=== PATIENT | male | born 1950 | race Caucasian/White ===

== ENCOUNTER → 2019-02-15 | Outpatient (CLI) | payer MEDICARE, BC ==
[2017-01-31 10:27] VITALS: BP 152/82
[~2019-02-15] MED LIST: ASPI-612 PO; ATORVASTATIN CA80 MG PO; CHOL10003 PO; FLUO10TA PO; FLUT15.88 NS; GABA600T7 PO; GLIP5TAB10 PO; INSU100I27 SQ; KETO15CR2 TP; LISI-338 PO; LORA10TA3 PO; METF100010 PO; MIDO2.5T PO; MIRT15TA3 PO; MV-M1TAB36 PO; PIOG45TA40 PO; POLY15DR20 OP; SAXA5TAB PO
--- NOTE | 2019-02-15 16:22 | RAD ---
Bilateral lower extremity arterial duplex ultrasound 02/15/2019 INDICATION: Intermittent leg pain. Significant risk factors for atherosclerotic vascular disease including diabetes, long-term smoker, neuropathy. TECHNIQUE: Ultrasound evaluation of the major arteries of the bilateral lower extremities was performed including color Doppler imaging spectral analysis. Diffuse atherosclerotic vascular disease is identified. No high-grade stenosis involving the major arteries of the bilateral lower extremities is identified on color Doppler imaging. Waveform morphologies and velocities are within normal limits throughout the major arteries of the bilateral lower extremities. IMPRESSION: 1.No ultrasound evidence of hemodynamic significant stenosis involving the major arteries of the bilateral lower extremities. 2. Diffuse atherosclerotic vascular disease is noted. Electronically signed by: Tera Mcdonald MD (02/15/2019 4:19 PM) [facility]
== END | disposition home or self-care (01) ==
LOC: US 08:43
PROVIDERS: ATTEND Family Medicine
DX: I70.293 Other atherosclerosis of native arteries of extremities, bilateral legs (principal); E11.9 Type 2 diabetes mellitus without complications; G62.9 Polyneuropathy, unspecified; F17.200 Nicotine dependence, unspecified, uncomplicated
CPT/HCPCS: 93925

== ENCOUNTER 2019-07-26 14:06 | Inpatient (IN) | payer MEDICARE, BC ==
[~2019-07-26] VITALS: Ht 170.2 cm; Wt 87.8 kg
[~2019-07-26 14:06] MED LIST changes: +FLUT15.845 NS; -FLUT15.88 NS
[2019-07-26 14:23] VITALS: BP 168/88
[2019-07-26 14:26] VITALS: BP 128/89
[2019-07-26 14:29] VITALS: BP 117/77
[2019-07-26] MEDS ORDERED: ONDANSETRON PF 4 MG/2 ML VIAL. IV PRN (15:00)
[2019-07-26] MEDS ORDERED: ACETAMINOPHEN 325 MG TABLET PO PRN (15:00)
[2019-07-26 15:14] LABS: BASO # 0.2 x10^3/uL (0.0-0.2); BASO % 3 % (0-3); EOS # 0.1 x10^3/uL (0.0-0.7); EOS % 2 % (0-3); HEMATOCRIT 36.3 % (39.0-53.0); HEMOGLOBIN 12.1 g/dL (13.0-17.5); LYMPH # 1.6 x10^3/uL (1.0-4.8); LYMPH % 23 % (24-48); MEAN CORPUSCULAR HEMOGLOBIN 30 pg (25-35); MEAN CORPUSCULAR HGB CONC 33 g/dL (31-37); MEAN CORPUSCULAR VOLUME 89 fL (79-100); MONO # 0.6 x10^3/uL (0.0-1.1); MONO % 8 % (0-9); NEUT # 4.7 x10^3uL (1.8-7.7); NEUT % 65 % (31-73); PLATELET COUNT 178 x10^3/uL (140-400); RED BLOOD COUNT 4.06 x10^6/uL (4.30-5.70); RED CELL DISTRIBUTION WIDTH 14.3 % (11.5-14.5); WHITE BLOOD COUNT 7.2 x10^3/uL (4.0-11.0)
[2019-07-26] MEDS: IV NORMAL SALINE 1,000ML 1,000 ML IV SCH (15:15)
[2019-07-26 15:27] LABS: ALBUMIN 3.9 g/dL (3.4-5.0); ALBUMIN/GLOBULIN RATIO 1.1 (1.0-1.7); CALCIUM 8.7 mg/dL (8.5-10.1); CREATININE 1.6 mg/dL (0.7-1.3); GFR 42.9; MAGNESIUM 1.8 mg/dL (1.8-2.4); POTASSIUM 4.3 mmol/L (3.5-5.1); TOTAL BILIRUBIN 0.4 mg/dL (0.2-1.0); TOTAL PROTEIN 7.3 g/dL (6.4-8.2)
[2019-07-26] MEDS ORDERED: BUME1TAB3 PO (15:29)
[2019-07-26] MEDS ORDERED: L GA1CAP2 PO (15:29)
[2019-07-26] MEDS ORDERED: WARF7.5T48 PO (15:29)
[2019-07-26] MEDS ORDERED: WARF7.5T45 PO (15:29)
[2019-07-26] MEDS ORDERED: SEMA1PEN SQ (15:29)
[2019-07-26] MEDS ORDERED: OMEP20TA8 PO (15:29)
[2019-07-26] MEDS ORDERED: MESA0.372 PO (15:31)
[2019-07-26] MEDS ORDERED: LOSA25TA PO (15:31)
[2019-07-26] MEDS: MESALAMINE 0.375 GM PO SCH ×2 (17:00→19:53)
[2019-07-26 19:06] VITALS: BP 108/69
--- NOTE | 2019-07-26 20:48 | RAD ---
CHEST PA LATERAL History: Syncope Comparison: January 30, 2017 Findings: No consolidation or pleural effusion. Normal heart size. No pneumothorax. DISH related changes of the thoracic spine. Eventration of the right hemidiaphragm, unchanged. Impression: 1. No acute cardiopulmonary process. Electronically signed by: Mert Michael DO (07/26/2019 8:45 PM) [facility]
[2019-07-26] MEDS ORDERED: ATORVASTATIN CALCIUM 20 MG TABLET PO SCH (21:00)
[2019-07-26 21:57] LABS: BACTERIA,URINE 0 /HPF (0-FEW); BILIRUBIN,URINE NEG (NEG); CLARITY,URINE CLEAR; COLOR,URINE YELLOW; GLUCOSE,URINE NEG (NEG); NITRITE,URINE NEG (NEG); UROBILINOGEN,URINE 1 mg/dL (0.2 mg/dL); WBC,URINE OCC /HPF (0-4)
[2019-07-26 21:58] LABS: HYALINE CASTS, URINE OCC /HPF; SQUAMOUS EPITHELIAL CELL,UR OCC /LPF
[2019-07-26 23:14] VITALS: BP 116/69
[2019-07-27] MEDS: IV NORMAL SALINE 1,000ML 1,000 ML IV SCH ×2 (00:41→10:40)
[2019-07-27 05:13] VITALS: BP 147/76
[2019-07-27 06:47] LABS: BASO # 0.1 x10^3/uL (0.0-0.2); BASO % 2 % (0-3); CALCIUM 7.9 mg/dL (8.5-10.1); CREATININE 1.3 mg/dL (0.7-1.3); EOS # 0.2 x10^3/uL (0.0-0.7); EOS % 3 % (0-3); GFR 54.6; HEMATOCRIT 31.7 % (39.0-53.0); HEMOGLOBIN 10.9 g/dL (13.0-17.5); LYMPH % 32 % (24-48); MEAN CORPUSCULAR HEMOGLOBIN 30 pg (25-35); MEAN CORPUSCULAR HGB CONC 34 g/dL (31-37); MEAN CORPUSCULAR VOLUME 89 fL (79-100); MONO # 0.6 x10^3/uL (0.0-1.1); MONO % 10 % (0-9); NEUT # 3.3 x10^3uL (1.8-7.7); NEUT % 54 % (31-73); PLATELET COUNT 144 x10^3/uL (140-400); RED BLOOD COUNT 3.58 x10^6/uL (4.30-5.70); RED CELL DISTRIBUTION WIDTH 14.3 % (11.5-14.5); WHITE BLOOD COUNT 6.2 x10^3/uL (4.0-11.0)
[2019-07-27] MEDS ORDERED: PANTOPRAZOLE 40 MG TABLET. PO SCH (07:30)
[2019-07-27] MEDS ORDERED: glipiZIDE 5 MG TABLET PO SCH (08:00)
[2019-07-27] MEDS: MESALAMINE 0.375 GM PO SCH ×2 (08:44→10:49)
[2019-07-27] MEDS ORDERED: FLUoxetine HCL 10 MG CAPSULE PO SCH (09:00)
[2019-07-27] MEDS ORDERED: LOSARTAN 25 MG TABLET. PO SCH (09:00)
[2019-07-27] MEDS ORDERED: BUMETANIDE 1 MG TABLET PO SCH (09:00)
[2019-07-27 11:47] VITALS: BP 148/86
== END 2019-07-27 14:48 | disposition home or self-care (01) | DRG 639 ==
LOC: 1 SOUTH 14:06
PROVIDERS: ADMIT Family Medicine; ATTEND Family Medicine
DX: E11.65 Type 2 diabetes mellitus with hyperglycemia (principal); I10 Essential (primary) hypertension; K21.9 Gastro-esophageal reflux disease without esophagitis; F43.10 Post-traumatic stress disorder, unspecified; E86.0 Dehydration; I95.1 Orthostatic hypotension; I48.91 Unspecified atrial fibrillation; E03.9 Hypothyroidism, unspecified; Z87.891 Personal history of nicotine dependence; Z88.8 Allergy status to other drugs, medicaments and biological substances
CPT/HCPCS: 36415; 71046; 80048; 80053; 81001; 83605; 83735; 85025; 85379; 85610; 87040; 87086; J7030

== ENCOUNTER 2019-09-12 17:32 | Inpatient (IN) | payer MEDICARE, BC ==
[~2019-09-12] VITALS: Ht 170.2 cm; Wt 86.4 kg
[~2019-09-12 17:32] MED LIST changes: +BUME1TAB3 PO; +L GA1CAP2 PO; +LOSA25TA PO; +MESA0.372 PO; +OMEP20TA8 PO; +SEMA1PEN SQ; +WARF7.5T45 PO; +WARF7.5T48 PO
[2019-09-12 18:00] VITALS: BP 161/96
[2019-09-12] MEDS ORDERED: PIOG45TA40 PO (18:11)
[2019-09-12] MEDS ORDERED: GABA100C81 PO (18:12)
[2019-09-12] MEDS ORDERED: DULO30CA2 PO (18:12)
--- NOTE | 2019-09-12 18:18 | EKG ---
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
[2019-09-12] MEDS: IV NORMAL SALINE 1,000ML 1,000 ML IV SCH (18:40)
[2019-09-12 18:49] LABS: ALBUMIN 3.5 g/dL (3.4-5.0); CALCIUM 8.5 mg/dL (8.5-10.1); CREATININE 1.6 mg/dL (0.7-1.3); GFR 42.9; POTASSIUM 4.4 mmol/L (3.5-5.1); TOTAL BILIRUBIN 0.2 mg/dL (0.2-1.0); TOTAL PROTEIN 7.1 g/dL (6.4-8.2)
[2019-09-12 19:02] LABS: BASO # 0.2 x10^3/uL (0.0-0.2); BASO % 2 % (0-3); EOS # 0.2 x10^3/uL (0.0-0.7); EOS % 2 % (0-3); HEMATOCRIT 36.7 % (39.0-53.0); HEMOGLOBIN 12.3 g/dL (13.0-17.5); LYMPH # 1.7 x10^3/uL (1.0-4.8); LYMPH % 22 % (24-48); MEAN CORPUSCULAR HEMOGLOBIN 30 pg (25-35); MEAN CORPUSCULAR HGB CONC 33 g/dL (31-37); MEAN CORPUSCULAR VOLUME 89 fL (79-100); MONO # 0.6 x10^3/uL (0.0-1.1); MONO % 8 % (0-9); NEUT # 5.4 x10^3uL (1.8-7.7); NEUT % 67 % (31-73); PLATELET COUNT 205 x10^3/uL (140-400); RED BLOOD COUNT 4.12 x10^6/uL (4.30-5.70); RED CELL DISTRIBUTION WIDTH 14.2 % (11.5-14.5); WHITE BLOOD COUNT 8.1 x10^3/uL (4.0-11.0)
[2019-09-12 19:03] VITALS: BP 159/95
[2019-09-12 19:04] VITALS: BP_SYST 121; BP_SYST 164; BP_DIAS 78; BP_DIAS 90
--- NOTE | 2019-09-12 19:10 | RAD ---
Exam: Chest 2 views INDICATION: Orthostatic hypotension TECHNIQUE: Frontal and lateral views the chest Comparisons: 07/26/2019 FINDINGS: The cardiomediastinal silhouette and pulmonary vessels are within normal limits. The lung and pleural spaces are clear. IMPRESSION: No acute cardiopulmonary process. Electronically signed by: Shahana Mercado MD (09/12/2019 7:07 PM) [facility]
[2019-09-12] MEDS: ATORVASTATIN CALCIUM 20 MG TABLET PO SCH (20:26)
[2019-09-12] MEDS: GABAPENTIN 100 MG CAPSULE. PO SCH (20:27)
[2019-09-12] MEDS: LACTOBACILLUS RHAMNOSUS GG 1 CAPSULE. PO SCH (20:27)
[2019-09-12] MEDS: MESALAMINE 0.375 GM PO SCH (20:28)
[2019-09-12 20:47] VITALS: BP 147/82
[2019-09-12 20:48] VITALS: BP_SYST 109; BP_SYST 148; BP_DIAS 68; BP_DIAS 75
[2019-09-12 22:04] VITALS: BP 162/86
[2019-09-13] VITALS (8 sets, daily range): BP systolic 114–176; BP diastolic 68–90
[2019-09-13] MEDS: IV NORMAL SALINE 1,000ML 1,000 ML IV SCH ×2 (05:06→14:00)
[2019-09-13 06:22] LABS: BASO # 0.1 x10^3/uL (0.0-0.2); BASO % 2 % (0-3); EOS # 0.2 x10^3/uL (0.0-0.7); EOS % 3 % (0-3); HEMATOCRIT 32.7 % (39.0-53.0); HEMOGLOBIN 10.9 g/dL (13.0-17.5); LYMPH # 1.8 x10^3/uL (1.0-4.8); LYMPH % 26 % (24-48); MEAN CORPUSCULAR HEMOGLOBIN 30 pg (25-35); MEAN CORPUSCULAR HGB CONC 34 g/dL (31-37); MEAN CORPUSCULAR VOLUME 88 fL (79-100); MONO # 0.6 x10^3/uL (0.0-1.1); MONO % 9 % (0-9); NEUT # 4.3 x10^3uL (1.8-7.7); NEUT % 61 % (31-73); PLATELET COUNT 186 x10^3/uL (140-400); RED CELL DISTRIBUTION WIDTH 14.2 % (11.5-14.5); WHITE BLOOD COUNT 7.1 x10^3/uL (4.0-11.0)
[2019-09-13 06:27] LABS: CALCIUM 8.2 mg/dL (8.5-10.1); CREATININE 1.4 mg/dL (0.7-1.3); GFR 50.1; POTASSIUM 3.9 mmol/L (3.5-5.1)
[2019-09-13] MEDS ORDERED: glipiZIDE 5 MG TABLET PO SCH (08:00)
[2019-09-13] MEDS: LACTOBACILLUS RHAMNOSUS GG 1 CAPSULE. PO SCH ×2 (08:26→21:25)
[2019-09-13] MEDS: DULoxetine HCL 30 MG CAPSULE.DR PO SCH (08:26)
[2019-09-13] MEDS: PANTOPRAZOLE 40 MG TABLET. PO SCH (08:26)
[2019-09-13] MEDS: FLUoxetine HCL 10 MG CAPSULE PO SCH (08:27)
[2019-09-13] MEDS ORDERED: WARFARIN 7.5 MG TABLET. PO SCH (09:00)
[2019-09-13] MEDS: MESALAMINE 0.375 GM PO SCH ×3 (09:00→17:00)
[2019-09-13] MEDS ORDERED: LOSARTAN 25 MG TABLET. PO SCH (09:00)
[2019-09-13] MEDS: MIDODRINE 2.5 MG TABLET PO SCH ×2 (12:32→17:38)
--- NOTE | 2019-09-13 13:19 | PDOC2 ---
CONSULT Date of Admission DATE: 09/13/19 TIME: 13:19 Reason for Consult: Near syncope Referring Physician: Dr. Chandler Chief Complaint Near syncope Source: Chart review, Patient History of Present Illness 68-year-old male presented after he had an episode of near-syncope and fell down the stairs. He denied any catrachita loss of consciousness. He has been having dizziness/lightheadedness mainly on standing up (postural) since last 2 years. He was actually seen at [facility] in 2017 for orthostasis. He denied any chest pain, orthopnea/PND or palpitations. He stated that he drinks plenty of fluids but also takes Bumex for chronic diastolic heart failure. He was diagnosed with atrial fibrillation at [facility] one year ago and is currently being treated with warfarin. He is presently in sinus rhythm. Past Medical History Paroxysmal atrial fibrillation Chronic diastolic heart failure Hyperlipidemia Diabetes mellitus type 2 Family History: Hypertension Social History Patient denied any smoking alcohol or drug use Current Medications Current Medications Glipizide (Glucotrol) 2.5 mg DAILY08 PO ; Start 09/13/19 at 08:00; Stop 09/12/19 at 18:28; Status DC Losartan Potassium (Cozaar) 25 mg DAILY PO ; Start 09/13/19 at 09:00; Stop 09/12/19 at 18:28; Status DC Warfarin Sodium (Coumadin) 7.5 mg QODAY PO ; Start 09/14/19 at 09:00; Stop 09/12/19 at 18:28; Status DC Warfarin Sodium (Coumadin) 7 mg 3X/WEEK PO ; Start 09/13/19 at 09:00; Stop 09/13/19 at 09:16; Status DC Atorvastatin Calcium (Lipitor) 80 mg QHS PO Last administered on 09/12/19at 20:26; Start 09/12/19 at 21:00 Fluoxetine HCl (PROzac) 30 mg DAILY PO Last administered on 09/13/19at 08:27; Start 09/13/19 at 09:00 Lactobacillus Rhamnosus (Culturelle) 1 cap BID PO Last administered on 09/13/19at 08:26; Start 09/12/19 at 21:00 Non-Formulary Medication (Mesalamine (Apriso)) 0.375 gm QID PO ; Start 09/12/19 at 21:00; Status UNV Pantoprazole Sodium (Protonix) 40 mg DAILY PO Last administered on 09/13/19at 08:26; Start 09/13/19 at 09:00 Non-Formulary Medication (Semaglutide (Ozempic)) 1 mg WEEKLY SQ ; Start 09/19/19 at 09:00; Status UNV Sodium Chloride 1,000 ml @ 100 mls/hr Q10H IV Last administered on 09/13/19at 05:06; Start 09/12/19 at 18:00 Duloxetine HCl (Cymbalta) 30 mg DAILY PO Last administered on 09/13/19at 08:26; Start 09/13/19 at 09:00 Gabapentin (Neurontin) 100 mg HS PO Last administered on 09/12/19at 20:27; Start 09/12/19 at 21:00 Warfarin Sodium (Coumadin - No Dose Today) 1 each 1X WARF ONCE MC ; Start 09/12/19 at 21:00; Stop 09/12/19 at 21:01; Status DC Warfarin Sodium (Coumadin Per Physician) 1 each PRN DAILY PRN MC SEE COMMENTS; Start 09/12/19 at 20:45; Stop 09/13/19 at 09:10; Status DC Midodrine (Proamatine) 2.5 mg [id number] PO Last administered on 09/13/19at 12:32; Start 09/13/19 at 13:00 Warfarin Sodium (Coumadin Per Pharmacy) 1 each PRN DAILY PRN MC SEE COMMENTS Last administered on 09/13/19at 13:09; Start 09/13/19 at 09:15 Warfarin Sodium (Coumadin - No Dose Today) 1 each 1X WARF ONCE MC ; Start 09/13/19 at 16:00; Stop 09/13/19 at 16:01 Guaifenesin (Mucinex Er) 600 mg BID PO Last administered on 09/13/19at 11:20; Start 09/13/19 at 11:15 Active Scripts Active Reported Cymbalta (Duloxetine Hcl) 30 Mg Capsule.dr 1 Cap PO DAILY Neurontin (Gabapentin) 100 Mg Capsule 1 Cap PO HS 30 Days Apriso (Mesalamine) 0.375 Gm Cap.er.24h 0.375 Gm PO QID Ozempic (Semaglutide) 1 Mg/0.75 Ml Pen.injctr 1 Mg SQ WEEKLY Coumadin (Warfarin Sodium) 7.5 Mg Tablet 7 Mg PO 3X/WEEK [employer] Capsule (L Gasseri/B Bifidum/B Longum) 1 Each Capsule 1 E ach PO DAILY Omeprazole 20 Mg Tablet. 1 Tab PO DAILY Bumetanide 1 Mg Tablet 1 Tab PO DAILY Fluoxetine Hcl 10 Mg Tablet 3 Tab PO DAILY last dose this morning next dose tomorrow Atorvastatin Calcium 80 Mg Tablet 40 Mg PO QHS last dose last night next dose tonight Allergies: Coded Allergies: No Known Drug Allergies (Unverified , 01/30/17) PSYCHOLOGICAL ROS: No: Hallucinations Eyes: No: Loss of vision HEENT: No: Epistaxis Respiratory: No: Hemoptysis Cardiovascular: No: Chest Pain Gastrointestinal: No: Diarrhea Neurological: YES: Dizziness; No: Seizures Skin: No: Rash General: Alert, Oriented X3 HEENT: Atraumatic Lungs: Clear to auscultation Heart: Regular rate Abdomen: Soft, No tenderness Extremities: No edema Psych/Mental Status: Mood NL VITALS Vital Signs Date Time Temp Pulse Resp B/P (MAP) Pulse Ox O2 Delivery O2 Flow Rate FiO2 09/13/19 12:32 89 169/87 09/13/19 10:19 97.9 20 97 Room Air Labs Laboratory Tests Test 09/12/19 17:50 09/12/19 20:10 09/13/19 05:55 White Blood Count 8.1 x10^3/uL (4.0-11.0) 7.1 x10^3/uL (4.0-11.0) Red Blood Count 4.12 x10^6/uL (4.30-5.70) 3.70 x10^6/uL (4.30-5.70) Hemoglobin 12.3 g/dL (13.0-17.5) 10.9 g/dL (13.0-17.5) Hematocrit 36.7 % (39.0-53.0) 32.7 % (39.0-53.0) Mean Corpuscular Volume 89 fL (79-100) 88 fL (79-100) Mean Corpuscular Hemoglobin 30 pg (25-35) 30 pg (25-35) Mean Corpuscular Hemoglobin Concent 33 g/dL (31-37) 34 g/dL (31-37) Red Cell Distribution Width 14.2 % (11.5-14.5) 14.2 % (11.5-14.5) Platelet Count 205 x10^3/uL (140-400) 186 x10^3/uL (140-400) Neutrophils (%) (Auto) 67 % (31-73) 61 % (31-73) Lymphocytes (%) (Auto) 22 % (24-48) 26 % (24-48) Monocytes (%) (Auto) 8 % (0-9) 9 % (0-9) Eosinophils (%) (Auto) 2 % (0-3) 3 % (0-3) Basophils (%) (Auto) 2 % (0-3) 2 % (0-3) Neutrophils # (Auto) 5.4 x10^3uL (1.8-7.7) 4.3 x10^3uL (1.8-7.7) Lymphocytes # (Auto) 1.7 x10^3/uL (1.0-4.8) 1.8 x10^3/uL (1.0-4.8) Monocytes # (Auto) 0.6 x10^3/uL (0.0-1.1) 0.6 x10^3/uL (0.0-1.1) Eosinophils # (Auto) 0.2 x10^3/uL (0.0-0.7) 0.2 x10^3/uL (0.0-0.7) Basophils # (Auto) 0.2 x10^3/uL (0.0-0.2) 0.1 x10^3/uL (0.0-0.2) Prothrombin Time 42.3 SEC (9.4-11.4) 41.6 SEC (9.4-11.4) Prothromb Time International Ratio 4.1 (0.9-1.1) 4.0 (0.9-1.1) D-Dimer (Cony) < 0.19 mg/L (0.00-0.50) Sodium Level 143 mmol/L (136-145) 144 mmol/L (136-145) Potassium Level 4.4 mmol/L (3.5-5.1) 3.9 mmol/L (3.5-5.1) Chloride Level 106 mmol/L (98-107) 108 mmol/L (98-107) Carbon Dioxide Level 27 mmol/L (21-32) 25 mmol/L (21-32) Anion Gap 10 (6-14) 11 (6-14) Blood Urea Nitrogen 21 mg/dL (8-26) 21 mg/dL (8-26) Creatinine 1.6 mg/dL (0.7-1.3) 1.4 mg/dL (0.7-1.3) Estimated GFR (Cockcroft-Gault) 42.9 50.1 BUN/Creatinine Ratio 13 (6-20) Glucose Level 114 mg/dL (70-99) 108 mg/dL (70-99) Calcium Level 8.5 mg/dL (8.5-10.1) 8.2 mg/dL (8.5-10.1) Total Bilirubin 0.2 mg/dL (0.2-1.0) Aspartate Amino Transf (AST/SGOT) 26 U/L (15-37) Alanine Aminotransferase (ALT/SGPT) 37 U/L (16-63) Alkaline Phosphatase 82 U/L (46-116) Creatine Kinase 114 U/L (39-308) Troponin I Quantitative 0.024 ng/mL (0-0.055) Total Protein 7.1 g/dL (6.4-8.2) Albumin 3.5 g/dL (3.4-5.0) Albumin/Globulin Ratio 1.0 (1.0-1.7) Lactic Acid Level 0.8 mmol/L (0.4-2.0) Assessment/Plan 1. Near syncope: Secondary to orthostasis. Hold Bumex and continue intravenous fluids. If orthostasis does not resolve, we will consider initiation of Florinef for possible autonomic insufficiency secondary to diabetes 2. Paroxysmal atrial fibrillation: Presently in sinus rhythm. Warfarin on hold secondary to supratherapeutic INR. We will obtain records from primary retail loss prevention officer regarding any recent 2-D echo cardiac and. 3. Chronic diastolic heart failure: Clinically well compensated 4. Hyperlipidemia: Statins therapy 5. Diabetes mellitus type 2: Treated per PCP Thank you for your consultation DUY CONTRERAS MD Sep 13, 2019 13:19
[2019-09-13] MEDS: GABAPENTIN 100 MG CAPSULE. PO SCH (21:25)
[2019-09-13] MEDS: ATORVASTATIN CALCIUM 20 MG TABLET PO SCH (21:25)
--- NOTE | 2019-09-13 23:28 | PN ---
DATE: 09/13/2019 SUBJECTIVE: A 68-year-old male with severe orthostasis. The patient's blood pressure is dropping significantly up to 30-40 points while standing. The patient does feel lightheaded dyspneic with this. He has been evaluated by Cardiology. His hemoglobin and hematocrit is down to 10.9 and 32. Denies chest pain or shortness of breath. The patient's cortisol levels are normal as was his TSH and creatinine. The patient has chronic kidney disease and mild elevation of his blood sugars. D-dimer was negative. His protime is being followed by the situation with the pharmacy. OBJECTIVE: VITAL SIGNS: Blood pressure 164/90, respiratory rate 20, pulse 95, when standing drops down to 120 in the office. He went down 40-50 points as well, pulse in the 90s. He is afebrile. GENERAL: The patient is alert and oriented. LUNGS: Diminished, but clear. CARDIOVASCULAR: Stable. ABDOMEN: Soft, nontender. EXTREMITIES: No clubbing, cyanosis or edema. IMPRESSION AND PLAN: Orthostatic hypotension, type 2 diabetes. The patient is to continue on his new medication. He also has a history of paroxysmal atrial fibrillation, familial hyperlipidemia and will continue on his near syncopal workup. We will continue to monitor him and make further progress as indicated. ISABEL GTZ MD DR: ZAID/prakash JOB#: [id number] / [id number]
[2019-09-14] VITALS (8 sets, daily range): BP systolic 122–180; BP diastolic 73–103
[2019-09-14 00:06] LABS: HEMOGLOBIN A1C 6.2 % (4.8-5.6)
[2019-09-14] MEDS: IV NORMAL SALINE 1,000ML 1,000 ML IV SCH ×3 (00:40→20:00)
[2019-09-14] MEDS: LACTOBACILLUS RHAMNOSUS GG 1 CAPSULE. PO SCH ×2 (08:01→20:58)
[2019-09-14] MEDS: MIDODRINE 2.5 MG TABLET PO SCH ×3 (08:01→20:59)
[2019-09-14] MEDS: FLUoxetine HCL 10 MG CAPSULE PO SCH (08:01)
[2019-09-14] MEDS: PANTOPRAZOLE 40 MG TABLET. PO SCH (08:02)
[2019-09-14] MEDS: DULoxetine HCL 30 MG CAPSULE.DR PO SCH (08:02)
[2019-09-14] MEDS ORDERED: WARFARIN 7.5 MG TABLET. PO SCH (09:00)
--- NOTE | 2019-09-14 09:39 | CARD ---
MR#: [id number] Date of Study: 09/13/2019 Ordering Physician: ISABEL GTZ, Referring Physician: ISABEL GTZ, Tech: Flor Peralta RDCS APPROVED REPORT EXAM: Two-dimensional and M-mode echocardiogram with Doppler and color Doppler. Other Information Quality : FairHR: 107bpm INDICATION Orthostatic Hypotension 2D DIMENSIONS Left Atrium(2D)4.2 (1.6-4.0cm)IVSd1.3 (0.7-1.1cm) Aortic Root(2D)3.3 (2.0-3.7cm)LVDd4.7 (3.9-5.9cm) LVOT Diameter2.2 (1.8-2.4cm)PWd1.3 (0.7-1.1cm) LA Yjwmmz10 (18-58mL)LVDs3.4 (2.5-4.0cm) FS (%) 10.9 %SV22.5 ml LVEF(%)47.0 (>50%) Aortic Valve AoV Peak Quintin.139.6cm/sAoV VTI26.8cm AO Peak GR.7.8mmHgLVOT Peak Quintin.86.7cm/s LVOT VTI 17.73cmAO Mean GR.5mmHg MAMTA (VMAX)2.32hs8XYT (VTI)2.56cm2 Mitral Valve MV E Njpngrft39.7cm/sMV DECEL KDDN187cu MV A Ioqiltzy31.8cm/sE/A Ratio0.6 MV A Gqzlslhn616mm TDI Lateral E' P. V10.00cm/sMedial E' P. V8.00cm/s E/Lateral E'5.2E/Medial E'6.5 Tricuspid Valve TR P. Szfyausz945lm/sRAP GYYNQGLR6ruSy TR Peak Gr.83joPhXUMA08znSy Pulmonary Vein S1 Grvxcpkg85.1cm/sD2 Wcwudsth37.7cm/s LEFT VENTRICLE The left ventricle is normal size. There is mild concentric left ventricular hypertrophy. The left ve ntricular systolic function is normal. The ejection fraction is estimated at 50-55%. There is normal LV segmental wall motion. No left ventricle thrombus noted on this study. There is no ventricular sep castro defect visualized. There is no left ventricular aneurysm. There is no mass noted in the left vent ricle. RIGHT VENTRICLE The right ventricle is normal size. There is normal right ventricular wall thickness. The right ventr icular systolic function is normal. ATRIA The left atrium is mildly dilated. LAV 74ml The right atrium size is normal. The interatrial septum i s intact with no evidence for an atrial septal defect or patent foramen ovale as noted on 2-D or Dopp ler imaging. AORTIC VALVE The aortic valve is normal in structure and function. Doppler and Color Flow revealed no significant aortic regurgitation. There is no significant aortic valvular stenosis. There is no aortic valvular v egetation. MITRAL VALVE The mitral valve is normal in structure and function. There is no evidence of mitral valve prolapse. There is no mitral valve stenosis. Doppler and Color-flow revealed mild mitral regurgitation. TRICUSPID VALVE The tricuspid valve is normal in structure and function. Doppler and Color Flow revealed mild tricusp id regurgitation. PAP 58mmhg There is no tricuspid valve prolapse or vegetation. There is no tricuspi d valve stenosis. PULMONIC VALVE The pulmonary valve is normal in structure and function. Doppler and Color Flow revealed trace pulmon ic valvular regurgitation. There is no pulmonic valvular stenosis. GREAT VESSELS The aortic root is normal in size. The IVC is normal in size and collapses >50% with inspiration. PERICARDIAL EFFUSION There is no pleural effusion. There is no evidence of significant pericardial effusion. Critical Notification Critical Value: No <Conclusion> The left ventricular systolic function is normal. The ejection fraction is estimated at 50-55%. Mild mitral regurgitation. Mild tricuspid regurgitation. PAP 58mmhg There is no evidence of significant pericardial effusion. Signed by : Cedric Celeste, Electronically Approved : 09/14/2019 09:39:02
--- NOTE | 2019-09-14 12:02 | PN ---
DATE: SUBJECTIVE: The patient has been having problems with syncope as well as lightheadedness, paroxysmal atrial fibrillation, marked orthostatic hypotension, doing better now. The patient's blood pressure has been quite dropping as much as it has but still continues to drop. Cardiology still evaluating. OBJECTIVE: VITAL SIGNS: Blood pressure 150/85, drops down to approximately 120/70 when he stands. Pulse 93, respiratory rate 20, afebrile. GENERAL: The patient is alert and oriented. Speech is fluent, spontaneous, appropriate, at the hand. LUNGS: Diminished, but clear. CARDIOVASCULAR: Regular sinus rhythm. ABDOMEN: Soft, nontender. EXTREMITIES: No clubbing, cyanosis or edema. NEUROLOGIC: Intact. IMPRESSION: Orthostatic hypotension, syncope, type 2 diabetes. He has also developed shingles on his left flank area. Started on acyclovir for now. ISABEL GTZ MD DR: ZAID/prakash JOB#: [id number] / [id number]
[2019-09-14] MEDS ORDERED: WARFARIN 3 MG TABLET. PO ONE (16:00)
[2019-09-14] MEDS: MESALAMINE 0.375 GM PO SCH (17:00)
[2019-09-14] MEDS: ACYCLOVIR 200 MG CAPSULE PO SCH ×2 (17:10→20:58)
[2019-09-14] MEDS: GABAPENTIN 100 MG CAPSULE. PO SCH (20:58)
[2019-09-14] MEDS: ATORVASTATIN CALCIUM 20 MG TABLET PO SCH (20:58)
[2019-09-15 05:42] VITALS: BP 131/77
[2019-09-15] MEDS: IV NORMAL SALINE 1,000ML 1,000 ML IV SCH ×2 (06:00→08:02)
[2019-09-15] MEDS: PANTOPRAZOLE 40 MG TABLET. PO SCH (07:57)
[2019-09-15] MEDS: FLUoxetine HCL 10 MG CAPSULE PO SCH (07:58)
[2019-09-15] MEDS: ACYCLOVIR 200 MG CAPSULE PO SCH (07:58)
[2019-09-15] MEDS: MIDODRINE 2.5 MG TABLET PO SCH (07:58)
[2019-09-15] MEDS: LACTOBACILLUS RHAMNOSUS GG 1 CAPSULE. PO SCH (07:58)
[2019-09-15] MEDS: DULoxetine HCL 30 MG CAPSULE.DR PO SCH (07:59)
[2019-09-15] MEDS: MESALAMINE 0.375 GM PO SCH (09:00)
[2019-09-15] MEDS ORDERED: ACYC-63 PO (11:10)
[2019-09-15] MEDS ORDERED: MIDO2.5T PO (11:10)
[2019-09-15 11:22] VITALS: BP 148/85
--- NOTE | 2019-09-15 13:54 | DS ---
DATE OF DISCHARGE: 09/15/2019 HOSPITAL COURSE: A 68-year-old male came in with marked orthostasis with drop in his blood pressure approximately 40 points, was having syncopal spells at home with marked dyspnea and lightheadedness when this occurred. The patient, otherwise, was admitted to the hospital. He was hydrated in the usual fashion. He was placed on midodrine for maintaining his blood pressure. The patient's blood pressure did go up; however, we adjusted his midodrine, came down to 148/85, respiratory rate 20, pulse 87. The patient's labs showed hemoglobin 10.9 and 32. Otherwise, TSH and cortisol levels were normal. Troponins were negative. The BUN and creatinine 21 and 1.4. The patient made good progress. His INR was also elevated at 4.1 when he came in, was dropped down to 2.2 by pharmacy. In any case, the patient made excellent progress during the rest of his hospitalization and the patient's chest x-ray was unremarkable, had an echocardiogram that showed ejection fraction of 60-65% by Dr. Celeste and made further evaluation. He will follow up with Dr. Zamora, his box toe cutter for followup on the situation. IMPRESSION: Severe orthostatic hypotension, type 2 diabetes, dehydration, near syncope, shingles of the left flank area, placed on acyclovir for that, given warnings on those. He will continue to be monitored as an outpatient. He will follow up accordingly, be on a diabetic diet, decreased activity. Follow up with his physicians as indicated above. ISABEL GTZ MD DR: ZAID/prakash JOB#: [id number] / [id number]
[2019-09-15] MEDS ORDERED: WARFARIN 3 MG TABLET. PO ONE (16:00)
[2019-09-19] MEDS ORDERED: NON FORMULARY ITEM (Semaglutide (Ozempic) 1 MG) SQ SCH (09:00)
== END 2019-09-15 11:57 | disposition home or self-care (01) | DRG 640 ==
LOC: 1 SOUTH 17:32
PROVIDERS: ADMIT Family Medicine; ATTEND Family Medicine
DX: E86.0 Dehydration (principal); N17.0 Acute kidney failure with tubular necrosis; I50.32 Chronic diastolic (congestive) heart failure; I95.1 Orthostatic hypotension; I48.0 Paroxysmal atrial fibrillation; E78.5 Hyperlipidemia, unspecified; N18.9 Chronic kidney disease, unspecified; E11.22 Type 2 diabetes mellitus with diabetic chronic kidney disease; B02.9 Zoster without complications; R79.1 Abnormal coagulation profile; W10.9XXA Fall (on) (from) unspecified stairs and steps, initial encounter; Y93.89 Activity, other specified; Y92.89 Other specified places as the place of occurrence of the external cause; Y99.8 Other external cause status; Z79.01 Long term (current) use of anticoagulants; Z82.49 Family history of ischemic heart disease and other diseases of the circulatory system
CPT/HCPCS: 36415; 71046; 80048; 80053; 82533; 82550; 83036; 83605; 84443; 84484; 85025; 85379; 85610; 93005; 93306; J7030

== ENCOUNTER 2020-09-06 15:57 | Inpatient (IN) | payer MEDICARE, BC ==
[~2020-09-06] VITALS: Ht 170.2 cm; Wt 79.3 kg
[~2020-09-06 15:57] MED LIST changes: +ACYC-63 PO; -ASPI-612 PO; +ASPI-889 PO; +DULO30CA2 PO; +GABA100C81 PO
--- NOTE | 2020-09-06 16:42 | PHYS DOC ---
Past History Past Medical History: A-Fib, Arthritis, Bronchitis, Cystic Fibrosis, CHF, Hypertension (RACHID ANN MD) General Adult EDM: Chief Complaint: HYPERTENSION HPI: HPI: Patient is a 69-year-old male with multiple complaints. [facility]. Patient had a systolic blood pressure over 200 in the clinic. Patient states he was there for multiple cold symptoms and abdominal pain. He has not been taking his medications because he has not been feeling well. He is on medications been taking is his Coumadin. Patient states he has had 2 to 3 weeks of cough productive of dark brown phlegm. Was seen by his primary care and started antibiotics was not over the name of them. Patient states he completed the antibiotic course. Denies any known sick contacts. Has had some nausea without vomiting. Was having diarrhea but has been taking medications to stop the diarrhea and has not had a bowel movement in about 3 to 4 days. He denies any fevers. Says abdominal pain is low and pressure-like. Says he urinates frequently which is his baseline due to his diabetes. (TONG SARKAR MD) Review of Systems: Review of Systems: All other systems within normal limits except for as noted in the HPI (TONG SARKAR MD) Allergies: Allergies: Allergies Coded Allergies Type Severity Reaction Last Updated Verified No Known Drug Allergies 01/30/17 No (TONG SARKAR MD) Physical Exam: PE: Constitutional: Well developed, well nourished, no acute distress, non-toxic appearance. [] HENT: Normocephalic, atraumatic, bilateral external ears normal, nose normal. [] Eyes: PERRLA, conjunctiva normal, no discharge. [] Neck: No rigidity, supple, no stridor. [] Cardiovascular: Regular rate and rhythm, brisk cap refill [] Lungs & Thorax: Non labored symmetric respirations, no tachypnea or respiratory distress [] Abdomen: Soft, nondistended mild lower abdominal tenderness without guarding or rebound, no point focal tenderness.. Skin: Warm, dry, no erythema, no rash. [] Back: Unremarkable Extremities: No deformities, range of motion grossly intact, no lower extremity edema [] Neurologic: Alert and oriented X 3, no focal deficits noted. [] Psychologic: Affect normal, judgement normal, mood normal. [] (TONG SARKAR MD) EKG: EKG: Atrial fibrillation with a rate of [address] elevation depression, normal axis [] (TONG SARKAR MD) Radiology/Procedures: Radiology/Procedures: Exam: Chest 2 views INDICATION: Cough TECHNIQUE: Frontal and lateral views the chest Comparisons: 09/12/2019 FINDINGS: The cardiomediastinal silhouette and pulmonary vessels are within normal limits. Hazy airspace at the lung bases bilaterally. No pleural effusion. IMPRESSION: Hazy bibasilar airspace disease, may relate to atelectasis or developing infectious process. [] (TONG SARKAR MD) Radiology/Procedures: [address] [id number] IMAGING REPORT Signed PATIENT: HAYDEN SEAY ACCOUNT: [id number] : 1950 LOCATION: ER AGE: 69 SEX: M EXAM STATUS: REG ER ORD. PHYSICIAN: TONG SARKAR MD REASON: cough PROCEDURE: CHEST PA & LATERAL Exam: Chest 2 views INDICATION: Cough TECHNIQUE: Frontal and lateral views the chest Comparisons: 09/12/2019 FINDINGS: The cardiomediastinal silhouette and pulmonary vessels are within normal limits. Hazy airspace at the lung bases bilaterally. No pleural effusion. IMPRESSION: Hazy bibasilar airspace disease, may relate to atelectasis or developing infectious process. Electronically signed by: Shahana Boateng MD (09/06/2020 4:55 PM) [facility] DICTATED AND SIGNED BY: SHAHANA BOATENG MD DATE: 09/06/201652 CC: TONG SARKAR MD; ISABEL GTZ MD ~MTH0 0 (RACHID ANN MD) Heart Score: Risk Factors: Risk Factors: DM, Current or recent (<one month) smoker, HTN, HLP, family history of CAD, obesity. Risk Scores: Score 0 - 3: 2.5% MACE over next 6 weeks - Discharge Home Score 4 - 6: 20.3% MACE over next 6 weeks - Admit for Clinical Observation Score 7 - 10: 72.7% MACE over next 6 weeks - Early Invasive Strategies (TONG SARKAR MD) HEART Score for Chest Pain: HEART Score for Chest Pain Response (Comments) Value History Moderately Suspicious 1 ECG Nonspecific Repolarizatio 1 Age > 65 2 Risk Factors 1 or 2 Risk Factors 1 Troponin < Normal Limit 0 Total 5 Course & Med Decision Making: Course & Med Decision Making Pendinglabs and CT, care transitioned at shift change. [] (TONG SARKAR MD) Course & Med Decision Making See Dr. Sarkar chart for detail. Pt. relates has not felt well this past week. Non compliant with meds except his coumadin. Pt. patient denies any specific ankle ill contacts. No recent travel. Has been more short of breath and a nonproductive cough. Patient only follows Dr. Gtz. Patient noted today's blood pressures were high. Discussed presentation, testing and treatment plan with . Plan admit to his service, supplement potassium, diuresis and get consult with cardiology. Impression: 1. Accelerated hypertension 2. Diastolic and systolic dysfunction -heart failure BNP is 24,529 3. Hypokalemia 3.0 4. Anemia hemoglobin 11.7 5. INR is therapeutic at 3.1 6. History of A. fib 7. Bilateral pleural effusions 8. Left basilar atelectasis/atypical pneumonia (RACHID ANN MD) Dragon Disclaimer: Dragon Disclaimer: This electronic medical record was generated, in whole or in part, using a voice recognition dictation system. (TONG SARKAR MD) Departure Departure: Referrals: ISABEL GTZ MD (PCP) Dragon Disclaimer This chart was dictated in whole or in part using Voice Recognition software in a busy, high-work load, and often noisy Emergency Department environment. It may contain unintended and wholly unrecognized errors or omissions. (RACHID ANN MD) Dragon Disclaimer This chart was dictated in whole or in part using Voice Recognition software in a busy, high-work load, and often noisy Emergency Department environment. It may contain unintended and wholly unrecognized errors or omissions. (RACHID ANN MD) TONG SARKAR MD Sep 06, 2020 16:42 RACHID ANN MD Sep 06, 2020 19:28
--- NOTE | 2020-09-06 16:58 | RAD ---
Exam: Chest 2 views INDICATION: Cough TECHNIQUE: Frontal and lateral views the chest Comparisons: 09/12/2019 FINDINGS: The cardiomediastinal silhouette and pulmonary vessels are within normal limits. Hazy airspace at the lung bases bilaterally. No pleural effusion. IMPRESSION: Hazy bibasilar airspace disease, may relate to atelectasis or developing infectious process. Electronically signed by: Shahana Mercado MD (09/06/2020 4:55 PM) [facility]
[2020-09-06] MEDS ORDERED: ONDANSETRON PF 4 MG/2 ML VIAL. IVP ONE (17:30)
[2020-09-06] MEDS ORDERED: IV NORMAL SALINE 1,000ML 1,000 ML IV ONE ×2 (17:30→18:00)
--- NOTE | 2020-09-06 17:43 | EKG ---
[address] [address] Test Date: 2020-09-06 Test Time: 16:17:51 Pat Name: HAYDEN SEAY Department: Room: Gender: M Software Trainer: MATTIE : 1950 Requested By: TONG SARKAR Order Number: [id number] Reading MD: Measurements Intervals [place] Rate: 83 P: VA: QRS: 14 QRSD: 98 T: 133 QT: 402 QTc: 479 Interpretive Statements IRREGULAR RHYTHM, NO P-WAVE FOUND PROLONGED QT NO SPECIFIC ECG ABNORMALITIES RI6.02 No previous ECG available for comparison
[2020-09-06] MEDS ORDERED: CONTRAST GIVEN. MC PRN (17:45)
[2020-09-06] MEDS ORDERED: IOHEXOL 300 MG/ML 75 ML VIAL. IV ONE (17:45)
[2020-09-06 18:36] LABS: BASO # 0.1 x10^3/uL (0.0-0.2); BASO % 2 % (0-3); EOS % 1 % (0-3); HEMATOCRIT 35.6 % (39.0-53.0); HEMOGLOBIN 11.7 g/dL (13.0-17.5); LYMPH # 0.8 x10^3/uL (1.0-4.8); LYMPH % 11 % (24-48); MEAN CORPUSCULAR HEMOGLOBIN 29 pg (25-35); MEAN CORPUSCULAR HGB CONC 33 g/dL (31-37); MEAN CORPUSCULAR VOLUME 89 fL (79-100); MONO # 0.6 x10^3/uL (0.0-1.1); MONO % 8 % (0-9); NEUT % 79 % (31-73); PLATELET COUNT 154 x10^3/uL (140-400); RED BLOOD COUNT 4.02 x10^6/uL (4.30-5.70); RED CELL DISTRIBUTION WIDTH 15.7 % (11.5-14.5); WHITE BLOOD COUNT 7.6 x10^3/uL (4.0-11.0)
[2020-09-06 19:02] LABS: ALBUMIN 3.1 g/dL (3.4-5.0); ALBUMIN/GLOBULIN RATIO 0.9 (1.0-1.7); CALCIUM 8.9 mg/dL (8.5-10.1); CREATININE 1.1 mg/dL (0.7-1.3); MAGNESIUM 1.8 mg/dL (1.8-2.4); TOTAL BILIRUBIN 0.9 mg/dL (0.2-1.0); TOTAL PROTEIN 6.5 g/dL (6.4-8.2)
[2020-09-06] MEDS ORDERED: POTASSIUM CHLORIDE 20 MEQ TABLET.ER. PO ONE (19:30)
[2020-09-06] MEDS ORDERED: FUROSEMIDE 40 MG/4 ML VIAL IVP ONE (19:30)
[2020-09-06] MEDS ORDERED: cloNIDine TTS-2 1 PATCH PATCH TD ONE (19:30)
[2020-09-06] MEDS ORDERED: cloNIDine HCL 0.1 MG TABLET PO ONE (19:30)
[2020-09-06] MEDS ORDERED: ACETAMINOPHEN 325 MG TABLET PO PRN (19:45)
[2020-09-06] MEDS ORDERED: ONDANSETRON PF 4 MG/2 ML VIAL. IVP PRN (19:45)
--- NOTE | 2020-09-06 19:47 | RAD ---
Exam: CT of abdomen and pelvis with contrast INDICATION: Lower abdominal pain TECHNIQUE: Sequential axial images through the abdomen and pelvis obtained following the administrati on of 75 mL of Omni 300 IV contrast. Sagittal and coronal reformatted images were reconstructed from the axial data and reviewed. Comparisons: None FINDINGS: Heart size is normal. No pericardial effusion. There are small bilateral pleural effusions. Mild grou ndglass patterns the lung bases bilaterally. Liver, spleen, pancreas, gallbladder and adrenals are unremarkable. No perinephric inflammation or hydronephrosis. No renal or ureteral calculi are identified. Bladder is distended and appears thin-walled. Prostate is nonenlarged. Large and small bowel are unremarkable. Appendix is normal. No free intra-abdominal air or fluid. No obstruction. Abdominal aorta has a normal course and caliber. Abdominal vasculature is patent. No enlarged intra-abdominal lymph nodes are identified. No suspicious osseous lesions or acute fractures. IMPRESSION: 1. No acute process identified within the abdomen or pelvis. 2. Small bilateral pleural effusions with adjacent ground glass opacity may relate to atelectasis or developing infectious process. Exposure: One or more of the following in the visualized dose reduction techniques were utilized for this examination: 1. Automated exposure control 2. Adjustment of the MA and/or KV according to patient size 3. Use of iterative of reconstructive technique Electronically signed by: Shahana Mercado MD (09/06/2020 7:45 PM) [facility]
[2020-09-06] MEDS ORDERED: IPRATRPIUM/ALBUTEROL 0.5/2.5MG 3 ML NEBU. NEB SCH (20:00)
[2020-09-06] MEDS ORDERED: AZITHROMYCIN 250 MG TABLET. PO ONE (20:00)
[2020-09-06 20:53] VITALS: BP 192/109
[2020-09-06] MEDS ORDERED: LISI-334 PO (21:27)
[2020-09-06] MEDS ORDERED: WARF-31 PO (21:27)
[2020-09-06] MEDS ORDERED: DULO60CA6 PO (21:27)
[2020-09-06] MEDS ORDERED: FAMO20TA5 PO (21:27)
[2020-09-06] MEDS ORDERED: METO50TA6 PO (21:27)
[2020-09-06] MEDS ORDERED: ONDA4TAB12 PO (21:27)
[2020-09-06] MEDS ORDERED: GABA-585 PO (21:27)
[2020-09-06] MEDS ORDERED: CALC0.2530 PO (21:27)
--- NOTE | 2020-09-06 21:32 | NUR ---
The patient, HAYDEN SEAY, 69 y/o, M admitted by ISABEL GTZ MD, was given written information regarding hospital policies, unit procedures and contact persons. Health history and home medications were reviewed with patient. Bed locked and in lowest position, call light within reach. Valuables were checked and left in room.
[2020-09-06 21:40] LABS: BILIRUBIN,URINE NEG (NEG); CLARITY,URINE CLEAR; COLOR,URINE YELLOW; GLUCOSE,URINE NEG (NEG); NITRITE,URINE NEG (NEG); UROBILINOGEN,URINE 0.2 mg/dL (0.2 mg/dL)
[2020-09-06 21:43] LABS: BACTERIA,URINE 0 /HPF (0-FEW); WBC,URINE 0 /HPF (0-4)
[2020-09-06] MEDS ORDERED: ONDANSETRON ODT 4 MG TAB.RAPDIS PO PRN (22:00)
[2020-09-06] MEDS ORDERED: ZOLPIDEM 5 MG TABLET. PO PRN (22:30)
[2020-09-06] MEDS ORDERED: METOPROLOL TART IMMED RELEASE 25 MG TABLET. PO ONE (22:30)
[2020-09-06] MEDS ORDERED: ISOSORBIDE MONONITRATE ER 30 MG TAB.ER.24H PO ONE (22:30)
[2020-09-06] MEDS ORDERED: MORPHINE SULFATE 2 MG/ML DISP.SYRIN. IV PRN (22:30)
[2020-09-06] MEDS ORDERED: ACETAMINOPHEN 500 MG TABLET PO PRN (22:30)
[2020-09-06] MEDS: hydrALAZINE 25 MG TABLET PO SCH (22:30)
[2020-09-06] MEDS ORDERED: cloNIDine HCL 0.1 MG TABLET PO PRN (22:30)
[2020-09-06 23:20] VITALS: BP 155/84
[2020-09-07 05:32] VITALS: BP 163/79
[2020-09-07 06:35] LABS: BASO # 0.1 x10^3/uL (0.0-0.2); BASO % 1 % (0-3); EOS # 0.1 x10^3/uL (0.0-0.7); EOS % 2 % (0-3); HEMATOCRIT 29.5 % (39.0-53.0); HEMOGLOBIN 9.9 g/dL (13.0-17.5); LYMPH # 1.1 x10^3/uL (1.0-4.8); LYMPH % 17 % (24-48); MEAN CORPUSCULAR HEMOGLOBIN 30 pg (25-35); MEAN CORPUSCULAR HGB CONC 34 g/dL (31-37); MEAN CORPUSCULAR VOLUME 89 fL (79-100); MONO # 0.7 x10^3/uL (0.0-1.1); MONO % 11 % (0-9); NEUT # 4.7 x10^3uL (1.8-7.7); NEUT % 70 % (31-73); PLATELET COUNT 143 x10^3/uL (140-400); RED BLOOD COUNT 3.32 x10^6/uL (4.30-5.70); RED CELL DISTRIBUTION WIDTH 15.7 % (11.5-14.5); WHITE BLOOD COUNT 6.7 x10^3/uL (4.0-11.0)
[2020-09-07 06:44] LABS: CALCIUM 7.9 mg/dL (8.5-10.1); CREATININE 1.2 mg/dL (0.7-1.3); GFR 59.7
[2020-09-07 06:55] LABS: POTASSIUM 2.9 mmol/L (3.5-5.1)
--- NOTE | 2020-09-07 07:41 | PDOC2 ---
CARDIAC CONSULT DATE OF CONSULT DOS: DATE: 09/07/20 TIME: 07:30 REASON FOR CONSULT Reason for Consult HTN CHF AFIB REFERRING PHYSICIAN Referring Physician Dr. Bryant SOURCE Source: Chart review, Patient HPI History of Present Illness This is a 69 yo male who was referred from [facility] secondary to hypertensive urgency. SBP was noted over 200 in clinic. Patient having cold symptoms and not feeling well for the last 3-4 weeks. Was seen at PCP office and was treated with antibiotic therapy. Completed course, but did not have any improvement in symptoms. Has had cough productive of brown sputum, mild SOA, and body aches. No fevers, chest pain, dizziness, or diaphoresis. Has had some nausea, but no vomiting. Has not been taking his blood pressure meds as he has not been feeling well. Does have a history of CHF and PAFIB. Follows with [facility]. PAST MEDICAL HISTORY Past Medical History Paroxysmal atrial fibrillation Chronic diastolic heart failure Hyperlipidemia Diabetes mellitus type 2 Hypertension COPD GERD NIKOLE CVA Peripheral neuropathy PAST SURGICAL HISTORY Past Surgical History: No pertinent history FAMILY HISTORY Family History: Hypertension SOCIAL HISTORY Smoke: Quit ALCOHOL: none Drugs: None Lives: with Family CURRENT MEDICATIONS Current Medications Current Medications Sodium Chloride 1,000 ml @ 1,000 mls/hr 1X ONCE IV Last administered on 09/06/20at 18:58; Start 09/06/20 at 17:30; Stop 09/06/20 at 18:29; Status DC Ondansetron HCl (Zofran) 4 mg 1X ONCE IVP Last administered on 09/06/20at 18:59; Start 09/06/20 at 17:30; Stop 09/06/20 at 17:31; Status DC Iohexol (Omnipaque 300 Mg/ml) 75 ml 1X ONCE IV Last administered on 09/06/20at 19:17; Start 09/06/20 at 17:45; Stop 09/06/20 at 17:46; Status DC Info (Do NOT chart on this entry -- for MONITORING) 1 each PRN DAILY PRN MC SEE COMMENTS; Start 09/06/20 at 17:45; Stop 09/08/20 at 17:44 Sodium Chloride 1,000 ml @ 1,000 mls/hr 1X ONCE IV ; Start 09/06/20 at 18:00; Stop 09/06/20 at 18:59; Status DC Clonidine HCl (Catapres Tts-2) 1 patch 1X ONCE TD Last administered on 09/06/20at 20:01; Start 09/06/20 at 19:30; Stop 09/06/20 at 19:31; Status DC Clonidine HCl (Catapres) 0.2 mg 1X ONCE PO Last administered on 09/06/20at 19:52; Start 09/06/20 at 19:30; Stop 09/06/20 at 19:31; Status DC Potassium Chloride (Klor-Con) 40 meq 1X ONCE PO Last administered on 09/06/20at 20:02; Start 09/06/20 at 19:30; Stop 09/06/20 at 19:31; Status DC Furosemide (Lasix) 40 mg 1X ONCE IVP Last administered on 09/06/20at 19:51; Start 09/06/20 at 19:30; Stop 09/06/20 at 19:31; Status DC Ondansetron HCl (Zofran) 4 mg PRN Q4HRS PRN IVP NAUSEA/VOMITING; Start 09/06/20 at 19:45; Stop 09/07/20 at 19:44 Acetaminophen (Tylenol) 650 mg PRN Q4HRS PRN PO FEVER > 100.3'F; Start 09/06/20 at 19:45; Stop 09/06/20 at 22:25; Status DC Albuterol/ Ipratropium (Duoneb) 3 ml RTQID NEB ; Start 09/06/20 at 20:00; Stop 09/07/20 at 19:59 Potassium Chloride (Klor-Con) 40 meq BID PO ; Start 09/07/20 at 09:00 Furosemide (Lasix) 40 mg BID IVP ; Start 09/07/20 at 09:00 Azithromycin (Zithromax) 500 mg 1X ONCE PO Last administered on 09/06/20at 22:11; Start 09/06/20 at 20:00; Stop 09/06/20 at 20:01; Status DC Azithromycin (Zithromax) 250 mg DAILY PO ; Start 09/07/20 at 09:00 Calcitriol (Rocaltrol) 0.25 mcg DAILY PO ; Start 09/07/20 at 09:00 Duloxetine HCl (Cymbalta) 60 mg QHS PO ; Start 09/07/20 at 21:00 Famotidine (Pepcid) 20 mg BID PO ; Start 09/07/20 at 09:00 Gabapentin (Neurontin) 200 mg TID PO ; Start 09/07/20 at 09:00 Lisinopril (Prinivil) 20 mg DAILY PO ; Start 09/07/20 at 09:00 Metoprolol Tartrate (Lopressor) 50 mg BID PO ; Start 09/07/20 at 09:00 Ondansetron HCl (Zofran Odt) 4 mg PRN Q4HRS PRN PO NAUSEA/VOMITING; Start 09/06/20 at 22:00 Warfarin Sodium (Coumadin) 5 mg DAILY16 PO ; Start 09/07/20 at 16:00 Atorvastatin Calcium (Lipitor) 40 mg QHS PO ; Start 09/07/20 at 21:00 Non-Formulary Medication (Semaglutide (Ozempic)) 1 mg WEEKLY SQ ; Start 09/13/20 at 09:00; Status UNV Warfarin Sodium (Coumadin Per Physician) 1 each PRN DAILY PRN MC SEE COMMENTS; Start 09/06/20 at 22:15 Zolpidem Tartrate (Ambien) 5 mg PRN QHS PRN PO INSOMNIA, MAY REPEAT IN 1HR; Start 09/06/20 at 22:30 Acetaminophen (Tylenol) 500 mg PRN Q6HRS PRN PO MILD PAIN / TEMP > 100.3'F; Start 09/06/20 at 22:30 Morphine Sulfate (Morphine 2mg Syringe) 2 mg PRN Q2HR PRN IV PAIN; Start 09/06/20 at 22:30 Hydralazine HCl (Apresoline) 25 mg TID PO ; Start 09/06/20 at 22:30 Isosorbide Mononitrate (Imdur) 30 mg 1X ONCE PO Last administered on 09/07/20at 00:26; Start 09/06/20 at 22:30; Stop 09/06/20 at 22:31; Status DC Isosorbide Mononitrate (Imdur) 30 mg DAILY PO ; Start 09/07/20 at 09:00 Clonidine HCl (Catapres) 0.1 mg PRN Q1HR PRN PO HYPERTENSION; Start 09/06/20 at 22:30 Metoprolol Tartrate (Lopressor) 25 mg 1X ONCE PO Last administered on 09/07/20at 00:26; Start 09/06/20 at 22:30; Stop 09/06/20 at 22:31; Status DC Potassium Chloride 100 ml @ 100 mls/hr Q1H IV ; Start 09/07/20 at 08:00; Stop 09/07/20 at 11:59 Active Scripts Active Reported Ondansetron Odt (Ondansetron) 4 Mg Tab.rapdis 1 Tab PO PRN Q4HRS PRN Calcitriol 0.25 Mcg Capsule 1 Cap PO DAILY Metoprolol Tartrate 50 Mg Tablet 1 Tab PO BID Famotidine 20 Mg Tablet 1 Tab PO BID Cymbalta (Duloxetine Hcl) 60 Mg Capsule.dr 1 Cap PO QHS Gabapentin (Gabapentin) 100 Mg Capsule 200 Mg PO TID Lisinopril 20 Mg Tablet 1 Tab PO DAILY Warfarin Sodium 5 Mg Tablet 5 Mg PO DAILY Ozempic (Semaglutide) 1 Mg/0.75 Ml Pen.injctr 1 Mg SQ WEEKLY Sonatype Capsule (L Gasseri/B Bifidum/B Longum) 1 Each Capsule 1 Each PO DAILY Atorvastatin Calcium 80 Mg Tablet 40 Mg PO QHS last dose last night next dose tonight ALLERGIES Allergies: Coded Allergies: No Known Drug Allergies (Unverified , 01/30/17) ROS Review of Systems 14 point ROS conducted with pertinent positives noted above in HPI PHYSICAL EXAM General: Alert, Oriented X3, Cooperative, No acute distress HEENT: Atraumatic Lungs: Other (diminished bases) Heart: Regular rate Abdomen: Soft, No tenderness Extremities: No edema, Normal pulses Skin: No breakdown Neuro: Normal speech, Sensation intact Psych/Mental Status: Mental status NL, Mood NL MUSCULOSKELETAL: Osteoarthritic changes both hands VITALS Vital Signs Vital Signs Date Time Temp Pulse Resp B/P (MAP) Pulse Ox O2 Delivery O2 Flow Rate FiO2 09/07/20 05:32 98.3 78 20 163/79 (107) 94 Room Air LABS LABS Laboratory Tests Test 09/06/20 18:00 09/06/20 21:30 09/07/20 05:55 White Blood Count 7.6 x10^3/uL (4.0-11.0) 6.7 x10^3/uL (4.0-11.0) Red Blood Count 4.02 x10^6/uL (4.30-5.70) 3.32 x10^6/uL (4.30-5.70) Hemoglobin 11.7 g/dL (13.0-17.5) 9.9 g/dL (13.0-17.5) Hematocrit 35.6 % (39.0-53.0) 29.5 % (39.0-53.0) Mean Corpuscular Volume 89 fL (79-100) 89 fL (79-100) Mean Corpuscular Hemoglobin 29 pg (25-35) 30 pg (25-35) Mean Corpuscular Hemoglobin Concent 33 g/dL (31-37) 34 g/dL (31-37) Red Cell Distribution Width 15.7 % (11.5-14.5) 15.7 % (11.5-14.5) Platelet Count 154 x10^3/uL (140-400) 143 x10^3/uL (140-400) Neutrophils (%) (Auto) 79 % (31-73) 70 % (31-73) Lymphocytes (%) (Auto) 11 % (24-48) 17 % (24-48) Monocytes (%) (Auto) 8 % (0-9) 11 % (0-9) Eosinophils (%) (Auto) 1 % (0-3) 2 % (0-3) Basophils (%) (Auto) 2 % (0-3) 1 % (0-3) Neutrophils # (Auto) 6.0 x10^3uL (1.8-7.7) 4.7 x10^3uL (1.8-7.7) Lymphocytes # (Auto) 0.8 x10^3/uL (1.0-4.8) 1.1 x10^3/uL (1.0-4.8) Monocytes # (Auto) 0.6 x10^3/uL (0.0-1.1) 0.7 x10^3/uL (0.0-1.1) Eosinophils # (Auto) 0.0 x10^3/uL (0.0-0.7) 0.1 x10^3/uL (0.0-0.7) Basophils # (Auto) 0.1 x10^3/uL (0.0-0.2) 0.1 x10^3/uL (0.0-0.2) Prothrombin Time 31.2 SEC (9.4-11.4) Prothromb Time International Ratio 3.1 (0.9-1.1) Sodium Level 145 mmol/L (136-145) 146 mmol/L (136-145) Potassium Level 3.0 mmol/L (3.5-5.1) 2.9 mmol/L (3.5-5.1) Chloride Level 107 mmol/L (98-107) 109 mmol/L (98-107) Carbon Dioxide Level 25 mmol/L (21-32) 27 mmol/L (21-32) Anion Gap 13 (6-14) 10 (6-14) Blood Urea Nitrogen 21 mg/dL (8-26) 20 mg/dL (8-26) Creatinine 1.1 mg/dL (0.7-1.3) 1.2 mg/dL (0.7-1.3) Estimated GFR (Cockcroft-Gault) 66.0 59.7 BUN/Creatinine Ratio 19 (6-20) Glucose Level 116 mg/dL (70-99) 88 mg/dL (70-99) Calcium Level 8.9 mg/dL (8.5-10.1) 7.9 mg/dL (8.5-10.1) Magnesium Level 1.8 mg/dL (1.8-2.4) Total Bilirubin 0.9 mg/dL (0.2-1.0) Aspartate Amino Transf (AST/SGOT) 18 U/L (15-37) Alanine Aminotransferase (ALT/SGPT) 19 U/L (16-63) Alkaline Phosphatase 77 U/L (46-116) Troponin I Quantitative 0.037 ng/mL (0-0.055) DW-Hzw-L-Type Natriuretic Peptide 02748 pg/mL (0-124) Total Protein 6.5 g/dL (6.4-8.2) Albumin 3.1 g/dL (3.4-5.0) Albumin/Globulin Ratio 0.9 (1.0-1.7) Lipase 52 U/L (73-393) Urine Collection Type Void Urine Color Yellow Urine Clarity Clear Urine pH 6.0 Urine Specific [place] 1.020 Urine Protein >100 mg/dl (NEG-TRACE) Urine Glucose (UA) Neg mg/dL (NEG) Urine Ketones (Stick) 80 mg/dL (NEG) Urine Blood Mod (NEG) Urine Nitrite Neg (NEG) Urine Bilirubin Neg (NEG) Urine Urobilinogen Dipstick 0.2 mg/dL (0.2 mg/dL) Urine Leukocyte Esterase Neg (NEG) Urine RBC 3-5 /HPF (0-2) Urine WBC 0 /HPF (0-4) Urine Squamous Epithelial Cells None /LPF Urine Bacteria 0 /HPF (0-FEW) ECHOCARDIOGRAM Echocardiogram <Conclusion> The left ventricular systolic function is normal. The ejection fraction is estimated at 50-55%. Mild mitral regurgitation. Mild tricuspid regurgitation. PAP 58mmhg There is no evidence of significant pericardial effusion. DATE: 09/13/191923 ASSESSMENT/PLAN Assessment/Plan 1. Hypertensive urgency; secondary to missed meds 2. PAFIB; presently AFIB wtih controlled rate; on warfarin for stroke prophylaxis. INR 3.1. Follows with Dr. Zamora, [facility] cardiology. 3. Acute on chronic diastolic CHF; Echo 09/09 with preserved LV systolic function. S/p IV Lasix 4. Hyperlipidemia: Statin 5. Diabetes, II 6. Hypokalemia 7. PUI: COVID pending Recommendations Will give additional dose of Lasix this am Continue current antiHTN therapy. Monitor and titrate as warranted Warfarin for stroke prophylaxis Replace K. Check Mg and replace as warranted. Supportive care GALILEO CHEN APRN Sep 07, 2020 07:41
[2020-09-07] MEDS: IPRATROPIUM/ALBUTEROL 20/100mcg/INH INHALER. INH SCH ×4 (08:00→20:00)
[2020-09-07] MEDS: POTASSIUM CHLORIDE 10MEQ 100 ML IV SCH ×4 (08:11→15:08)
[2020-09-07] MEDS: ISOSORBIDE MONONITRATE ER 30 MG TAB.ER.24H PO SCH (08:11)
[2020-09-07] MEDS: METOPROLOL TART IMMED RELEASE 50 MG TABLET PO SCH ×2 (08:12→20:24)
[2020-09-07] MEDS: FAMOTIDINE 20 MG TABLET PO SCH ×2 (08:12→20:25)
[2020-09-07] MEDS: POTASSIUM CHLORIDE 20 MEQ TABLET.ER. PO SCH ×2 (08:12→20:25)
[2020-09-07] MEDS: GABAPENTIN 100 MG CAPSULE. PO SCH ×3 (08:12→20:24)
[2020-09-07] MEDS: hydrALAZINE 25 MG TABLET PO SCH ×3 (08:12→20:25)
[2020-09-07] MEDS: LISINOPRIL 20 MG TABLET PO SCH (08:13)
[2020-09-07] MEDS: FUROSEMIDE 40 MG/4 ML VIAL IVP SCH ×2 (08:13→20:25)
[2020-09-07] MEDS ORDERED: AZITHROMYCIN 250 MG TABLET. PO SCH (09:00)
[2020-09-07] MEDS ORDERED: ELECTROLYTE (ICU) PROTOCOL. MC PRN (09:15)
[2020-09-07] MEDS ORDERED: AZITHROMYCIN 250 MG TABLET. PO ONE (10:00)
[2020-09-07] MEDS ORDERED: levoFLOXacin PER PHARMACY 1 EACH. MC PRN (10:00)
--- NOTE | 2020-09-07 10:18 | HP ---
ADMIT DATE: 09/06/2020 HISTORY OF PRESENT ILLNESS: A 69-year-old male came in through the Emergency Room, was extremely tired, worn out. He had cold symptoms, sore throat. The patient is on chronic warfarin bringing up yellow green phlegm, but his systolic was over 200, his diastolic was over 100. As a result of all this, all other situations, the patient was admitted for further evaluation of his hypertensive urgency and his probable pneumonia of unspecified etiology. PAST MEDICAL HISTORY: He has had strokes, TIAs, peripheral neuropathy, chronic atrial fib, congestive heart failure, pericarditis, coronary artery disease, hypercholesterolemia, hypertension, COPD, sleep apnea, diabetes, psychiatric problems, PTSD, panic disorder, history of smoking. 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 Vaccinations Influenza, pneumococcal up-to-date. FAMILY HISTORY: Positive for cancer. ALLERGIES: No known drug allergies. MEDICATIONS: Include warfarin, Lipitor 80, metoprolol 50, lisinopril 20, gabapentin 100, Cymbalta 60, Zofran p.r.n., Pepcid b.i.d., Ozempic weekly and calcitriol. SOCIAL HISTORY: The patient denies smoking, alcohol or drug use. She is a full code. REVIEW OF SYSTEMS: Cough, fever, sore throat, chills, abdominal discomfort, nausea. Otherwise, unremarkable. PHYSICAL EXAMINATION: GENERAL: Pleasant white male, moderate amount of distress. VITAL SIGNS: Blood pressure 196/110, pulse of 93. He is afebrile, 93% oxygen saturation. HEENT: Head is atraumatic, normocephalic. Eyes: PERRLA without jaundice. Mouth and throat: Poor dentition. NECK: Supple. LUNGS: Diminished, primarily in the left lower lung base. CARDIOVASCULAR: Irregularly irregular. ABDOMEN: Negative HSM. Positive bowel sounds. EXTREMITIES: No bruits noted. Pulses noted distally. NEUROLOGIC: Baseline intact. Alert and oriented. Speech is fluent, spontaneous, appropriate. IMPRESSION: Therefore, hypertensive urgency, systemic inflammatory response syndrome, respiratory pneumonia, abdominal discomfort. PLAN: The patient will be started on IV antibiotic therapy and make further evaluation. As a result of those other test, he is being diuresed. Cardiology to see echocardiogram recorded. ISABEL GTZ MD DR: ZAID/prakash JOB#: [id number] / [id number]
[2020-09-07 10:46] VITALS: BP 143/79
[2020-09-07] MEDS ORDERED: IOHEXOL 350 MG/ML 100 ML VIAL. IV ONE (11:00)
--- NOTE | 2020-09-07 12:03 | RAD ---
EXAM: CT angiography of the chest with intravenous contrast. HISTORY: Shortness of breath. Pulmonary embolism. TECHNIQUE: Computed tomographic images of the chest were obtained following the administration of int ravenous contrast according to angiography protocol. Multiplanar reformatting was performed and three dimensional maximum intensity projection images were obtained. *One or more of the following individualized dose reduction techniques were utilized for this examina tion: 1. Automated exposure control. 2. Adjustment of the mA and/or kV according to patient size. 3. Use of iterative reconstruction technique. COMPARISON: None. FINDINGS: There is no evidence of pulmonary embolism. There is no evidence of aortic aneurysm or diss ection. There is cardiomegaly. There are small right and small to moderate left pleural effusions. Th ere is no pneumothorax. There is minimal biapical predominant pulmonary emphysema. There is a 4 mm no dule within the right upper lobe (series 3, image 53). There is a 4 mm nodule within the lateral left lower lobe (series 3, image 54). There is posterior dependent and left greater than right basilar at electasis. Avulsion of the upper abdomen demonstrates vicarious excretion of contrast from the gallbladder. Ther e is an exophytic cyst within the upper pole of the left kidney. This simple in appearance. Follow-up is not routinely recommended for simple renal cysts. There is a 1.7 cm nodule or nodular thickening of the left adrenal gland. There are degenerative changes throughout the visualized spine. No suspici ous osseous lesion is seen. IMPRESSION: 1. No evidence of pulmonary embolism. 2. Small right and small to moderate left pleural effusions with left greater than right lower lobe a telectasis. 3. 4 mm bilateral pulmonary nodules. Follow-up can be performed in one year if there are risk factors for pulmonary neoplasm. 4. Cardiomegaly. 5. 1.7 cm left adrenal nodule or nodular thickening of the left adrenal gland. This can be better ass essed with an adrenal protocol CT or MRI. Electronically signed by: Jelena Sanchez MD (09/07/2020 12:01 PM) [id number]
[2020-09-07] MEDS: CALCITRIOL 0.25 MCG CAPSULE PO SCH (12:16)
[2020-09-07 14:18] VITALS: BP 143/75
[2020-09-07] MEDS: WARFARIN 5 MG TABLET. PO SCH (16:00)
--- NOTE | 2020-09-07 16:59 | NUR ---
NSG NOTE; PT STATES FEELING BETTER TODAY AND HOPES TO GO HOME TOMORROW
[2020-09-07 19:16] VITALS: BP 120/62
[2020-09-07] MEDS: DULoxetine HCL 60 MG CAPSULE.DR PO SCH (20:24)
[2020-09-07] MEDS: ATORVASTATIN CALCIUM 20 MG TABLET PO SCH (20:24)
[2020-09-07 22:58] VITALS: BP 138/61
[2020-09-08 06:08] VITALS: BP 170/84
--- NOTE | 2020-09-08 06:14 | NUR ---
Pt was in bed upon assessment and med pass. Pt is A&OX4 with no complaints of discomfort this evening. Pt is calm and compliant with care this evening. Pt is using the urinal at bedside to help with accurate I&O assessment. Pt slept well through out night.
[2020-09-08 06:32] LABS: BASO # 0.1 x10^3/uL (0.0-0.2); BASO % 1 % (0-3); EOS # 0.2 x10^3/uL (0.0-0.7); EOS % 3 % (0-3); HEMATOCRIT 29.8 % (39.0-53.0); LYMPH # 1.2 x10^3/uL (1.0-4.8); LYMPH % 18 % (24-48); MEAN CORPUSCULAR HEMOGLOBIN 30 pg (25-35); MEAN CORPUSCULAR HGB CONC 34 g/dL (31-37); MEAN CORPUSCULAR VOLUME 89 fL (79-100); MONO # 0.8 x10^3/uL (0.0-1.1); MONO % 11 % (0-9); NEUT # 4.4 x10^3uL (1.8-7.7); NEUT % 66 % (31-73); PLATELET COUNT 140 x10^3/uL (140-400); RED BLOOD COUNT 3.34 x10^6/uL (4.30-5.70); RED CELL DISTRIBUTION WIDTH 15.8 % (11.5-14.5); WHITE BLOOD COUNT 6.7 x10^3/uL (4.0-11.0)
[2020-09-08 06:42] LABS: CREATININE 1.5 mg/dL (0.7-1.3); GFR 46.1; POTASSIUM 3.5 mmol/L (3.5-5.1)
--- NOTE | 2020-09-08 08:23 | PDOC ---
CARDIO Progress Notes Date & Time Date of Service DATE: 09/08/20 TIME: 08:14 Time of Evaluation 08:14 Subjective Notes breathing improved. No chest pain, palpitations. Feeling much better today. Vitals Vitals Vital Signs Date Time Temp Pulse Resp B/P (MAP) Pulse Ox O2 Delivery O2 Flow Rate FiO2 09/08/20 06:08 97.9 76 18 170/84 (112) 97 Room Air Weight Weight [ ] Input and Output I.O. Intake and Output0 09/08/20 07:00 Intake Total 1120 ml Output Total 400 ml Balance 720 ml Intake Oral 1120 ml Output Urine Total 400 ml # Voids 4 Laboratory Labs Laboratory Tests Test 09/06/20 18:00 09/06/20 19:33 09/06/20 21:30 09/07/20 05:55 White Blood Count 7.6 x10^3/uL (4.0-11.0) 6.7 x10^3/uL (4.0-11.0) Red Blood Count 4.02 x10^6/uL (4.30-5.70) 3.32 x10^6/uL (4.30-5.70) Hemoglobin 11.7 g/dL (13.0-17.5) 9.9 g/dL (13.0-17.5) Hematocrit 35.6 % (39.0-53.0) 29.5 % (39.0-53.0) Mean Corpuscular Volume 89 fL (79-100) 89 fL (79-100) Mean Corpuscular Hemoglobin 29 pg (25-35) 30 pg (25-35) Mean Corpuscular Hemoglobin Concent 33 g/dL (31-37) 34 g/dL (31-37) Red Cell Distribution Width 15.7 % (11.5-14.5) 15.7 % (11.5-14.5) Platelet Count 154 x10^3/uL (140-400) 143 x10^3/uL (140-400) Neutrophils (%) (Auto) 79 % (31-73) 70 % (31-73) Lymphocytes (%) (Auto) 11 % (24-48) 17 % (24-48) Monocytes (%) (Auto) 8 % (0-9) 11 % (0-9) Eosinophils (%) (Auto) 1 % (0-3) 2 % (0-3) Basophils (%) (Auto) 2 % (0-3) 1 % (0-3) Neutrophils # (Auto) 6.0 x10^3uL (1.8-7.7) 4.7 x10^3uL (1.8-7.7) Lymphocytes # (Auto) 0.8 x10^3/uL (1.0-4.8) 1.1 x10^3/uL (1.0-4.8) Monocytes # (Auto) 0.6 x10^3/uL (0.0-1.1) 0.7 x10^3/uL (0.0-1.1) Eosinophils # (Auto) 0.0 x10^3/uL (0.0-0.7) 0.1 x10^3/uL (0.0-0.7) Basophils # (Auto) 0.1 x10^3/uL (0.0-0.2) 0.1 x10^3/uL (0.0-0.2) Prothrombin Time 31.2 SEC (9.4-11.4) Prothromb Time International Ratio 3.1 (0.9-1.1) Sodium Level 145 mmol/L (136-145) 146 mmol/L (136-145) Potassium Level 3.0 mmol/L (3.5-5.1) 2.9 mmol/L (3.5-5.1) Chloride Level 107 mmol/L (98-107) 109 mmol/L (98-107) Carbon Dioxide Level 25 mmol/L (21-32) 27 mmol/L (21-32) Anion Gap 13 (6-14) 10 (6-14) Blood Urea Nitrogen 21 mg/dL (8-26) 20 mg/dL (8-26) Creatinine 1.1 mg/dL (0.7-1.3) 1.2 mg/dL (0.7-1.3) Estimated GFR (Cockcroft-Gault) 66.0 59.7 BUN/Creatinine Ratio 19 (6-20) Glucose Level 116 mg/dL (70-99) 88 mg/dL (70-99) Calcium Level 8.9 mg/dL (8.5-10.1) 7.9 mg/dL (8.5-10.1) Magnesium Level 1.8 mg/dL (1.8-2.4) 1.6 mg/dL (1.8-2.4) Total Bilirubin 0.9 mg/dL (0.2-1.0) Aspartate Amino Transf (AST/SGOT) 18 U/L (15-37) Alanine Aminotransferase (ALT/SGPT) 19 U/L (16-63) Alkaline Phosphatase 77 U/L (46-116) Troponin I Quantitative 0.037 ng/mL (0-0.055) HL-Sgq-F-Type Natriuretic Peptide 70848 pg/mL (0-124) Total Protein 6.5 g/dL (6.4-8.2) Albumin 3.1 g/dL (3.4-5.0) Albumin/Globulin Ratio 0.9 (1.0-1.7) Lipase 52 U/L (73-393) Coronavirus (PCR) Not detected (Not Detected) Urine Collection Type Void Urine Color Yellow Urine Clarity Clear Urine pH 6.0 Urine Specific [place] 1.020 Urine Protein >100 mg/dl (NEG-TRACE) Urine Glucose (UA) Neg mg/dL (NEG) Urine Ketones (Stick) 80 mg/dL (NEG) Urine Blood Mod (NEG) Urine Nitrite Neg (NEG) Urine Bilirubin Neg (NEG) Urine Urobilinogen Dipstick 0.2 mg/dL (0.2 mg/dL) Urine Leukocyte Esterase Neg (NEG) Urine RBC 3-5 /HPF (0-2) Urine WBC 0 /HPF (0-4) Urine Squamous Epithelial Cells None /LPF Urine Bacteria 0 /HPF (0-FEW) Test 09/07/20 12:13 09/07/20 12:23 09/07/20 20:42 09/08/20 05:58 Prothrombin Time 36.4 SEC (9.4-11.4) 29.4 SEC (9.4-11.4) Prothromb Time International Ratio 3.7 (0.9-1.1) 3.0 (0.9-1.1) Lactic Acid Level 1.2 mmol/L (0.4-2.0) Glucose (Fingerstick) 118 mg/dL (70-99) 155 mg/dL (70-99) White Blood Count 6.7 x10^3/uL (4.0-11.0) Red Blood Count 3.34 x10^6/uL (4.30-5.70) Hemoglobin 10.0 g/dL (13.0-17.5) Hematocrit 29.8 % (39.0-53.0) Mean Corpuscular Volume 89 fL (79-100) Mean Corpuscular Hemoglobin 30 pg (25-35) Mean Corpuscular Hemoglobin Concent 34 g/dL (31-37) Red Cell Distribution Width 15.8 % (11.5-14.5) Platelet Count 140 x10^3/uL (140-400) Neutrophils (%) (Auto) 66 % (31-73) Lymphocytes (%) (Auto) 18 % (24-48) Monocytes (%) (Auto) 11 % (0-9) Eosinophils (%) (Auto) 3 % (0-3) Basophils (%) (Auto) 1 % (0-3) Neutrophils # (Auto) 4.4 x10^3uL (1.8-7.7) Lymphocytes # (Auto) 1.2 x10^3/uL (1.0-4.8) Monocytes # (Auto) 0.8 x10^3/uL (0.0-1.1) Eosinophils # (Auto) 0.2 x10^3/uL (0.0-0.7) Basophils # (Auto) 0.1 x10^3/uL (0.0-0.2) Sodium Level 144 mmol/L (136-145) Potassium Level 3.5 mmol/L (3.5-5.1) Chloride Level 107 mmol/L (98-107) Carbon Dioxide Level 26 mmol/L (21-32) Anion Gap 11 (6-14) Blood Urea Nitrogen 21 mg/dL (8-26) Creatinine 1.5 mg/dL (0.7-1.3) Estimated GFR (Cockcroft-Gault) 46.1 Glucose Level 100 mg/dL (70-99) Calcium Level 8.0 mg/dL (8.5-10.1) Physical Exams HEENT: Neck Supple W Full Motion Chest: Symmetric Lungs: Other (diminished bases) Heart: irregularly irregular (presently AFIB ) Abdomen: Soft N/T Extremities: No Edema Neurology: alert, oriented, follow commands Assessment Assessment 1. Hypertensive urgency; secondary to missed meds. now controlled 2. PAFIB; presently AFIB wtih controlled rate; on warfarin for stroke prophylaxis. INR 3.0. Follows with Dr. Zamora, [facility] cardiology. 3. Acute on chronic diastolic CHF; Echo 09/09 with preserved LV systolic function. S/p IV Lasix 4. Hyperlipidemia: Statin 5. Diabetes, II 6. Hypokalemia, hypomagnesemia 7. PUI: COVID negative 8. Left adrenal nodule; 1.[address] Recommendations Continue current antiHTN therapy. Metoprolol for rate control Warfarin for stroke prophylaxis Echo ordered Consider per outpatient cardioversion. 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 Mg Mateo Supportive care GALILEO CHEN APRN Sep 08, 2020 08:23
[2020-09-08] MEDS: IPRATROPIUM/ALBUTEROL 20/100mcg/INH INHALER. INH SCH ×4 (08:45→20:31)
[2020-09-08] MEDS: AZITHROMYCIN 250 MG TABLET. PO SCH (08:45)
[2020-09-08] MEDS: METOPROLOL TART IMMED RELEASE 50 MG TABLET PO SCH ×2 (08:46→20:32)
[2020-09-08] MEDS: GABAPENTIN 100 MG CAPSULE. PO SCH ×3 (08:46→20:33)
[2020-09-08] MEDS: FAMOTIDINE 20 MG TABLET PO SCH ×2 (08:46→20:33)
[2020-09-08] MEDS: MAGNESIUM CHLORIDE ER 64 MG TABLET.ER PO SCH (08:46)
[2020-09-08] MEDS: LISINOPRIL 20 MG TABLET PO SCH (08:46)
[2020-09-08] MEDS: LACTOBACILLUS RHAMNOSUS GG 1 CAPSULE. PO SCH ×2 (08:46→20:33)
[2020-09-08] MEDS: ISOSORBIDE MONONITRATE ER 30 MG TAB.ER.24H PO SCH (08:46)
[2020-09-08] MEDS: hydrALAZINE 25 MG TABLET PO SCH ×3 (08:47→20:33)
[2020-09-08] MEDS: POTASSIUM CHLORIDE 20 MEQ TABLET.ER. PO SCH ×2 (08:47→20:32)
[2020-09-08] MEDS: FUROSEMIDE 40 MG/4 ML VIAL IVP SCH ×2 (08:47→20:31)
[2020-09-08] MEDS: CALCITRIOL 0.25 MCG CAPSULE PO SCH (08:48)
--- NOTE | 2020-09-08 10:23 | PN ---
DATE: SUBJECTIVE: The patient has hypertensive urgency as well as paroxysmal atrial fibrillation. Doing much better since he has been breathing much better overall. The patient also had some mild congestive heart failure and as a result of this, was brought in. He was diuresed. He has been doing extremely well since admission. He made steady progress. Echocardiogram done this morning pending. OBJECTIVE: VITAL SIGNS: Blood pressure is still elevated at 170/84, respirations 18, pulse 76, afebrile. The patient is 97 on room air. GENERAL: The patient is alert and oriented. LUNGS: Diminished, poor movement of air, but markedly improved. No rales or rhonchi noted. CARDIOVASCULAR: Irregularly irregular rhythm. ABDOMEN: Soft, nontender. EXTREMITIES: No clubbing, cyanosis or edema. NEUROLOGIC: Intact. IMPRESSION AND PLAN: Therefore, hypertensive urgency; paroxysmal atrial fibrillation, on warfarin; acute on chronic diastolic heart failure; type 2 diabetes, controlled; hypokalemia; hypomagnesemia; adjusting the COVID-19 negative; adrenal nodule. Followup CT. Otherwise, he is doing much better and continue on present drug regimen and adjust his meds for his elevated blood pressure again. ISABEL GTZ MD DR: ZAID/prakash JOB#: [id number] / [id number]
[2020-09-08 11:02] VITALS: BP 151/72
--- NOTE | 2020-09-08 15:14 | CARD ---
MR#: [id number] Date of Study: 09/08/2020 Ordering Physician: ISABEL GTZ, Referring Physician: ISABEL GTZ, Tech: Danielle Gabriel APPROVED REPORT EXAM: Two-dimensional and M-mode echocardiogram with Doppler and color Doppler. Other Information Quality : FairHR: 95bpm INDICATION Atrial Fibrillation Congestive Heart Failure RISK FACTORS Hypertension 2D DIMENSIONS RVDd2.7 (2.9-3.5cm)Left Atrium(2D)4.0 (1.6-4.0cm) IVSd1.0 (0.7-1.1cm)Aortic Root(2D)3.3 (2.0-3.7cm) LVDd5.8 (3.9-5.9cm)LVOT Diameter2.0 (1.8-2.4cm) PWd0.9 (0.7-1.1cm)LVDs4.8 (2.5-4.0cm) FS (%) 17.3 %SV59.6 ml LVEF(%)35.5 (>50%) Aortic Valve AoV Peak Quintin.145.7cm/sAoV VTI29.9cm AO Peak GR.8.5mmHgLVOT Peak Quintin.111.2cm/s LVOT VTI 21.28cmAO Mean GR.5mmHg MAMTA (VMAX)2.21th8HLY (VTI)2.20cm2 Mitral Valve MV E Nslywguj93.5cm/sMV E Peak Gr.3mmHg MV DECEL IYSE989kuIA A Fthbqkzj88.7cm/s MV E Mean Gr.2mmHgE/A Ratio2.5 Pulmonary Valve PV Peak Sovilmae87.5cm/sPV Peak Grad.3mmHg Tricuspid Valve TR P. Hsagoypx185ik/sRAP RTKIYKRQ46ibRm TR Peak Gr.34mmHg Pulmonary Vein S1 Dtlerjme02.5cm/sD2 Drihwece55.2cm/s LEFT VENTRICLE The left ventricle is normal size. There is normal left ventricular wall thickness. The left ventricu lar systolic function is mild to moderately impaired. The Ejection Fraction is 35-40%. There is globa l hypokinesis of the left ventricle. The left ventricular diastolic function and filling is normal fo r age. RIGHT VENTRICLE The right ventricle is normal size. There is normal right ventricular wall thickness. The right ventr icular systolic function is normal. ATRIA The left atrium is mildly dilated. The right atrium size is normal. The interatrial septum is intact with no evidence for an atrial septal defect or patent foramen ovale as noted on 2-D or Doppler imagi ng. AORTIC VALVE The aortic valve is normal in structure and function. Doppler and Color Flow revealed no significant aortic regurgitation. There is no significant aortic valvular stenosis. Calculated aortic valve area is 2.2 cm2 with maximum pressure gradient of 9 mmHg and mean pressure gradient of 5 mmHg. MITRAL VALVE The mitral valve is normal in structure and function. There is no evidence of mitral valve prolapse. There is no mitral valve stenosis. Doppler and Color-flow revealed trace mitral regurgitation. TRICUSPID VALVE The tricuspid valve is normal in structure and function. Doppler and Color Flow revealed mild tricusp id regurgitation with an estimated PAP of 49 mmHg. There is no tricuspid valve stenosis. PULMONIC VALVE The pulmonic valve is not well visualized. Doppler and Color Flow revealed no pulmonic valvular regur gitation. GREAT VESSELS The aortic root is normal in size. The IVC is dilated and collaspes <50%. PERICARDIAL EFFUSION There is no evidence of significant pericardial effusion. Critical Notification Critical Value: No <Conclusion> The left ventricular systolic function is mild to moderately impaired. The Ejection Fraction is 35-40%. Trace mitral regurgitation. Mild tricuspid regurgitation with an estimated PAP of 49 mmHg. There is no evidence of significant pericardial effusion. Signed by : Cedric Celeste, Electronically Approved : 09/08/2020 15:14:25
[2020-09-08 15:41] VITALS: BP 152/94
[2020-09-08] MEDS: WARFARIN 5 MG TABLET. PO SCH (16:00)
[2020-09-08 19:51] VITALS: BP 156/68
[2020-09-08] MEDS: DULoxetine HCL 60 MG CAPSULE.DR PO SCH (20:32)
[2020-09-08] MEDS: ATORVASTATIN CALCIUM 20 MG TABLET PO SCH (20:33)
[2020-09-08 22:23] VITALS: BP 143/82
[2020-09-09 05:59] VITALS: BP 157/79
--- NOTE | 2020-09-09 08:09 | PDOC ---
CARDIO Progress Notes Date & Time Date of Service DATE: 09/09/20 TIME: 07:59 Time of Evaluation 07:59 Subjective Notes No chest pain, palpitations, SOA Vitals Vitals Vital Signs Date Time Temp Pulse Resp B/P (MAP) Pulse Ox O2 Delivery O2 Flow Rate FiO2 09/09/20 05:59 98.4 84 20 157/79 (105) 93 Room Air Weight Weight [ ] Input and Output I.O. Intake and Output 09/09/20 07:00 Intake Total 1270 ml Output Total 550 ml Balance 720 ml Intake Oral 1270 ml Output Urine Total 550 ml # Voids 2 Laboratory Labs Laboratory Tests Test 09/07/20 12:13 09/07/20 12:23 09/07/20 20:42 09/08/20 05:58 Prothrombin Time 36.4 SEC (9.4-11.4) 29.4 SEC (9.4-11.4) Prothromb Time International Ratio 3.7 (0.9-1.1) 3.0 (0.9-1.1) Lactic Acid Level 1.2 mmol/L (0.4-2.0) Glucose (Fingerstick) 118 mg/dL (70-99) 155 mg/dL (70-99) White Blood Count 6.7 x10^3/uL (4.0-11.0) Red Blood Count 3.34 x10^6/uL (4.30-5.70) Hemoglobin 10.0 g/dL (13.0-17.5) Hematocrit 29.8 % (39.0-53.0) Mean Corpuscular Volume 89 fL (79-100) Mean Corpuscular Hemoglobin 30 pg (25-35) Mean Corpuscular Hemoglobin Concent 34 g/dL (31-37) Red Cell Distribution Width 15.8 % (11.5-14.5) Platelet Count 140 x10^3/uL (140-400) Neutrophils (%) (Auto) 66 % (31-73) Lymphocytes (%) (Auto) 18 % (24-48) Monocytes (%) (Auto) 11 % (0-9) Eosinophils (%) (Auto) 3 % (0-3) Basophils (%) (Auto) 1 % (0-3) Neutrophils # (Auto) 4.4 x10^3uL (1.8-7.7) Lymphocytes # (Auto) 1.2 x10^3/uL (1.0-4.8) Monocytes # (Auto) 0.8 x10^3/uL (0.0-1.1) Eosinophils # (Auto) 0.2 x10^3/uL (0.0-0.7) Basophils # (Auto) 0.1 x10^3/uL (0.0-0.2) Sodium Level 144 mmol/L (136-145) Potassium Level 3.5 mmol/L (3.5-5.1) Chloride Level 107 mmol/L (98-107) Carbon Dioxide Level 26 mmol/L (21-32) Anion Gap 11 (6-14) Blood Urea Nitrogen 21 mg/dL (8-26) Creatinine 1.5 mg/dL (0.7-1.3) Estimated GFR (Cockcroft-Gault) 46.1 Glucose Level 100 mg/dL (70-99) Calcium Level 8.0 mg/dL (8.5-10.1) Test 09/08/20 20:08 09/09/20 05:53 09/09/20 07:32 Glucose (Fingerstick) 126 mg/dL (70-99) 147 mg/dL (70-99) Prothrombin Time 21.0 SEC (9.4-11.4) Prothromb Time International Ratio 2.1 (0.9-1.1) Microbiology Micro Microbiology 09/07/20 Blood Culture - Preliminary, Resulted NO GROWTH AFTER 1 DAY... Physical Exams HEENT: Neck Supple W Full Motion Chest: Symmetric Lungs: Other (diminished bases) Heart: irregularly irregular (presently AFIB ) Abdomen: Soft N/T Extremities: No Edema Neurology: alert, oriented, follow commands Assessment Assessment 1. Hypertensive urgency; secondary to missed meds. now controlled 2. PAFIB; presently AFIB wtih controlled rate; on warfarin for stroke prophylaxis. INR 2.[address] Zamora, [facility] cardiology. 3. Acute on chronic systolic CHF with cardiomyopathy; Echo 09/09 with preserved LV systolic function. Repeat echo with LVEF 35-40%. Compensated s/p IV diuresis 4. Hyperlipidemia: Statin 5. Diabetes, II 6. Hypokalemia, hypomagnesemia; replaced 7. PUI: COVID negative 8. Left adrenal nodule; 1.[address] Recommendations HF optimization with lisinopril, metoprolol. Will convert metoprolol to long- acting given cardiomyopathy Needs further ischemic evaluation. This can be done an an outpatient basis and was discussed thoroughly with patient Metoprolol for rate control Warfarin for stroke prophylaxis Statin therapy Add ASA Consider per outpatient cardioversion. Will defer to primary practice managers. Supportive care GALILEO CHEN APRN Sep 09, 2020 08:09
[2020-09-09] MEDS: FUROSEMIDE 40 MG/4 ML VIAL IVP SCH (08:42)
[2020-09-09] MEDS: AZITHROMYCIN 250 MG TABLET. PO SCH (08:43)
[2020-09-09] MEDS: LISINOPRIL 20 MG TABLET PO SCH (08:43)
[2020-09-09] MEDS: GABAPENTIN 100 MG CAPSULE. PO SCH (08:43)
[2020-09-09] MEDS: POTASSIUM CHLORIDE 20 MEQ TABLET.ER. PO SCH (08:43)
[2020-09-09] MEDS: MAGNESIUM CHLORIDE ER 64 MG TABLET.ER PO SCH (08:43)
[2020-09-09] MEDS: FAMOTIDINE 20 MG TABLET PO SCH (08:44)
[2020-09-09] MEDS: CALCITRIOL 0.25 MCG CAPSULE PO SCH (08:44)
[2020-09-09] MEDS: IPRATROPIUM/ALBUTEROL 20/100mcg/INH INHALER. INH SCH (08:44)
[2020-09-09] MEDS: LACTOBACILLUS RHAMNOSUS GG 1 CAPSULE. PO SCH (08:46)
[2020-09-09] MEDS: ISOSORBIDE MONONITRATE ER 30 MG TAB.ER.24H PO SCH (08:46)
[2020-09-09 08:51] VITALS: BP 157/79
[2020-09-09] MEDS ORDERED: METOPROLOL SUCC 24HR ER 50 MG TAB.ER.24H. PO SCH (09:00)
[2020-09-09] MEDS ORDERED: LEVO500T8 PO (11:51)
[2020-09-09] MEDS ORDERED: IPRA4AER INH (11:51)
[2020-09-09] MEDS ORDERED: HYDR-2869 PO (11:51)
[2020-09-09] MEDS ORDERED: POTA20TA4 PO (11:51)
[2020-09-09] MEDS ORDERED: METO50TA29 PO (11:51)
[2020-09-09] MEDS ORDERED: ISOS30TA4 PO (11:51)
[2020-09-09] MEDS ORDERED: FURO40TA4 PO (11:51)
[2020-09-09] MEDS ORDERED: MAGN70TA2 PO (11:51)
[2020-09-09] MEDS ORDERED: AZIT250T6 PO (11:51)
[2020-09-09] MEDS ORDERED: ASPI-889 PO (11:51)
[2020-09-09] MEDS ORDERED: CLON0.1T12 PO (11:51)
--- NOTE | 2020-09-09 12:39 | DS ---
DATE OF DISCHARGE: HOSPITAL COURSE: A 69-year-old gentleman was admitted through the Emergency Room, came in and was very tired, worn out. The systolic was well over 200 and diastolic over 100. The patient was admitted for further evaluation and treatment thereof of his hypertensive urgency. The patient's chest x-ray showed possibility of a pneumonic process. He was placed on IV antibiotic therapy as well. The patient made good progress during the rest of his hospitalization. The patient's blood pressure was brought down. Cardiology saw the patient. The patient's hemoglobin and hematocrit remained stable at 10 and 29. Chemistries: BUN and creatinine 21 and 1.5. Blood sugars stable. The patient's albumin 3.1; potassium went down to 2.9, but that was stabilized and brought back up. Coronavirus negative. In any case, the patient made good progress during the rest of his hospitalization. IMPRESSION: Hypertensive urgency, pneumonitis, paroxysmal atrial fibrillation and chronic warfarin therapy, acute on chronic diastolic heart failure, type 2 diabetes, hypokalemia, hypomagnesemia, adrenal nodule. PLAN: The patient will be discharged home on a heart healthy diabetic diet and return to clinic for followup and follow up with his consulting services project manager, Dr. Zamora at [facility]. ISABEL GTZ MD DR: ZAID/nts JOB#: [id number] / [id number]
--- NOTE | 2020-09-09 12:47 | NUR ---
PATIENT IS DISCHARGED HOME WITH SELF CARE. PT IS STABLE AT TIME OF DISCHARGE. PT IS GIVEN FOLLOW UP INSTRUCTIONS. PATIENTS IV IS REMOVED AND TELE MONITOR IS DC'D. PATIENT IS ESCORTED OFF OF UNIT ACCOMPANIED BY STAFF.
[2020-09-10] MEDS ORDERED: ASPIRIN ENTERIC COATED 81 MG TABLET.DR. PO SCH (08:00)
[2020-09-13] MEDS ORDERED: NON FORMULARY ITEM (Semaglutide (Ozempic) 1 MG) SQ SCH (09:00)
== END 2020-09-09 12:47 | disposition home or self-care (01) | DRG 177 ==
LOC: ER 15:57 → 1 SOUTH 20:03
PROVIDERS: ADMIT Family Medicine; ATTEND Family Medicine
DX: J15.6 Pneumonia due to other Gram-negative bacteria (principal); I50.43 Acute on chronic combined systolic (congestive) and diastolic (congestive) heart failure; I42.9 Cardiomyopathy, unspecified; I48.20 Chronic atrial fibrillation, unspecified; J44.0 Chronic obstructive pulmonary disease with (acute) lower respiratory infection; J98.11 Atelectasis; I16.0 Hypertensive urgency; J15.9 Unspecified bacterial pneumonia; D64.9 Anemia, unspecified; E11.42 Type 2 diabetes mellitus with diabetic polyneuropathy; E27.8 Other specified disorders of adrenal gland; E78.00 Pure hypercholesterolemia, unspecified; E78.5 Hyperlipidemia, unspecified; E83.42 Hypomagnesemia; E87.6 Hypokalemia; F43.10 Post-traumatic stress disorder, unspecified; I11.0 Hypertensive heart disease with heart failure; I25.10 Atherosclerotic heart disease of native coronary artery without angina pectoris; G47.33 Obstructive sleep apnea (adult) (pediatric); K21.9 Gastro-esophageal reflux disease without esophagitis; M19.90 Unspecified osteoarthritis, unspecified site; I48.0 Paroxysmal atrial fibrillation; Z20.822 Contact with and (suspected) exposure to COVID-19; Z79.01 Long term (current) use of anticoagulants; Z82.49 Family history of ischemic heart disease and other diseases of the circulatory system; Z86.73 Personal history of transient ischemic attack (TIA), and cerebral infarction without residual deficits; Z87.891 Personal history of nicotine dependence; Z91.14 Patient's other noncompliance with medication regimen
CPT/HCPCS: 36415; 71046; 71275; 74177; 80048; 80053; 81001; 82947; 83605; 83690; 83735; 83880; 84484; 85025; 85610; 87040; 93005; 93306; 96361; 96374; 96375; J0696; J1940; J1956; J2405; J3480; Q9967; U0003; 97112; 97530; 99285-25; J7030

== ENCOUNTER 2020-12-31 16:15 | Inpatient (IN) | payer MEDICARE, BC ==
[~2020-12-31] VITALS: Ht 170.2 cm; Wt 78.9 kg
[~2020-12-31 16:15] MED LIST changes: -ACYC-63 PO; +ACYC200C84 PO; +AZIT250T6 PO; +CALC0.2530 PO; +CLON0.1T12 PO; +DULO60CA6 PO; +FAMO20TA5 PO; +FURO40TA4 PO; +GABA-585 PO; +HYDR-2869 PO; +IPRA4AER INH; +ISOS30TA68 PO; +LEVO500T8 PO; -LISI-338 PO; +LISI-517 PO; +LISI20TA18 PO; +MAGN70TA2 PO; +METO50TA29 PO; +METO50TA6 PO; +MIRT-7 PO; -MIRT15TA3 PO; +ONDA4TAB12 PO; +POTA20TA4 PO; +WARF-31 PO
[2020-12-31 16:57] VITALS: BP 152/91
--- NOTE | 2020-12-31 17:20 | NUR ---
Pt arrived on unit, pt unsure of why he is being admitted. Pt a/ox4, vitals signs stable. Ramesh said he would put the orders in the computer, awaiting orders. Pt belongings documented, and medications up to date in computer.
[2020-12-31] MEDS ORDERED: LIPA1CAP43 PO (17:27)
[2020-12-31] MEDS ORDERED: CARV6.2541 PO (17:27)
[2020-12-31] MEDS ORDERED: CHOL5POW PO (17:27)
[2020-12-31] MEDS ORDERED: ONDANSETRON ODT 4 MG TAB.RAPDIS PO PRN ×2 (18:00→18:15)
[2020-12-31 18:06] LABS: BASO # 0.1 x10^3/uL (0.0-0.2); BASO % 2 % (0-3); EOS # 0.2 x10^3/uL (0.0-0.7); EOS % 4 % (0-3); HEMATOCRIT 34.6 % (39.0-53.0); HEMOGLOBIN 11.6 g/dL (13.0-17.5); LYMPH # 1.2 x10^3/uL (1.0-4.8); LYMPH % 21 % (24-48); MEAN CORPUSCULAR HEMOGLOBIN 31 pg (25-35); MEAN CORPUSCULAR HGB CONC 33 g/dL (31-37); MEAN CORPUSCULAR VOLUME 91 fL (79-100); MONO # 1.1 x10^3/uL (0.0-1.1); MONO % 18 % (0-9); NEUT # 3.4 x10^3uL (1.8-7.7); NEUT % 56 % (31-73); PLATELET COUNT 137 x10^3/uL (140-400); RED BLOOD COUNT 3.78 x10^6/uL (4.30-5.70); RED CELL DISTRIBUTION WIDTH 15.6 % (11.5-14.5)
[2020-12-31] MEDS ORDERED: MAALOX:LIDO:APAP 6:2:1 ORAL SUSPENSION 180 ML BOTTLE. PO PRN (18:15)
[2020-12-31] MEDS ORDERED: ZOLPIDEM 5 MG TABLET. PO PRN (18:15)
--- NOTE | 2020-12-31 19:05 | RAD ---
EXAM: Chest, 2 views. HISTORY: Short of breath. COMPARISON: 09/07/2020 FINDINGS: 2 views of the chest are obtained. There is stable eventration of the right hemidiaphragm. There is no infiltrate, protrusion or pneumothorax. There is a stable prominent cardiac silhouette. IMPRESSION: No acute pulmonary finding. Electronically signed by: Jelena Sanchez MD (12/31/2020 7:02 PM) [facility]
[2020-12-31] MEDS ORDERED: WARFARIN 6 MG TABLET. PO SCH (20:00)
[2020-12-31] MEDS: IPRATROPIUM/ALBUTEROL 20/100mcg/INH INHALER. INH SCH (20:00)
[2020-12-31 20:22] VITALS: BP 163/87
[2020-12-31 20:26] LABS: ALBUMIN 3.2 g/dL (3.4-5.0); CALCIUM 8.5 mg/dL (8.5-10.1); CREATININE 1.7 mg/dL (0.7-1.3); GFR 39.8; POTASSIUM 3.8 mmol/L (3.5-5.1); TOTAL BILIRUBIN 0.4 mg/dL (0.2-1.0); TOTAL PROTEIN 6.5 g/dL (6.4-8.2)
[2020-12-31] MEDS ORDERED: DULoxetine HCL 60 MG CAPSULE.DR PO SCH (21:00)
[2020-12-31] MEDS ORDERED: ATORVASTATIN CALCIUM 20 MG TABLET PO SCH (21:00)
[2020-12-31] MEDS: POTASSIUM CHLORIDE 20 MEQ TABLET.ER. PO SCH (21:25)
[2020-12-31] MEDS: CHOLESTYRAMINE/ASPARTAME 4 GM PACKET PO SCH (21:25)
[2020-12-31] MEDS: FAMOTIDINE 20 MG TABLET PO SCH (21:26)
[2020-12-31] MEDS: GABAPENTIN 100 MG CAPSULE. PO SCH (21:26)
--- NOTE | 2020-12-31 21:56 | EKG ---
[address] [address] Test Date: 2020-12-31 Test Time: 21:51:12 Pat Name: HAYDEN SEAY Department: Room: 123 A Gender: M Memorial Counselor: : [id number] Requested By: ISABEL GTZ Order Number: [id number] Reading MD: Measurements Intervals [place] Rate: 76 P: SC: QRS: 11 QRSD: 86 T: 67 QT: 386 QTc: 439 Interpretive Statements Cannot analyze ECG CHEST LEAD(S) MISSING! (Measurements might be questionable) RI6.01 Compared to ECG 09/06/2020 16:17:51 Prolonged QT interval no longer present
[2020-12-31 22:47] VITALS: BP 166/79
[2021-01-01 05:50] LABS: BASO # 0.1 x10^3/uL (0.0-0.2); BASO % 2 % (0-3); EOS # 0.3 x10^3/uL (0.0-0.7); EOS % 6 % (0-3); HEMATOCRIT 30.7 % (39.0-53.0); HEMOGLOBIN 10.3 g/dL (13.0-17.5); LYMPH # 1.5 x10^3/uL (1.0-4.8); LYMPH % 31 % (24-48); MEAN CORPUSCULAR HEMOGLOBIN 31 pg (25-35); MEAN CORPUSCULAR HGB CONC 34 g/dL (31-37); MEAN CORPUSCULAR VOLUME 91 fL (79-100); MONO # 0.9 x10^3/uL (0.0-1.1); MONO % 17 % (0-9); NEUT # 2.2 x10^3uL (1.8-7.7); NEUT % 44 % (31-73); PLATELET COUNT 113 x10^3/uL (140-400); RED BLOOD COUNT 3.37 x10^6/uL (4.30-5.70); RED CELL DISTRIBUTION WIDTH 15.6 % (11.5-14.5)
[2021-01-01 05:58] VITALS: BP 148/86
--- NOTE | 2021-01-01 06:39 | NUR ---
Pt up to sides of bed and lying down, back and forth through the night. Pt anxious and restless. He is eager to go home. Pt encouraged to discuss concerns with plan with Dr. He denies pain. Will continue to monitor.
[2021-01-01] MEDS ORDERED: CARVEDILOL 6.25 MG TABLET PO SCH (08:00)
[2021-01-01] MEDS ORDERED: ASPIRIN ENTERIC COATED 81 MG TABLET.DR. PO SCH (08:00)
[2021-01-01] MEDS: GABAPENTIN 100 MG CAPSULE. PO SCH (08:40)
[2021-01-01] MEDS: POTASSIUM CHLORIDE 20 MEQ TABLET.ER. PO SCH (08:40)
[2021-01-01] MEDS: CHOLESTYRAMINE/ASPARTAME 4 GM PACKET PO SCH (08:40)
[2021-01-01] MEDS: FAMOTIDINE 20 MG TABLET PO SCH (08:41)
[2021-01-01] MEDS: IPRATROPIUM/ALBUTEROL 20/100mcg/INH INHALER. INH SCH ×2 (08:41→12:00)
[2021-01-01] MEDS ORDERED: GASSERI PO SCH (09:00)
[2021-01-01] MEDS ORDERED: [UNRECOGNIZED DRUG - OTHER] PO SCH (09:00)
[2021-01-01] MEDS ORDERED: B LONGUM PO SCH (09:00)
[2021-01-01] MEDS ORDERED: B BIFIDUM PO SCH (09:00)
[2021-01-01] MEDS ORDERED: CALCITRIOL 0.25 MCG CAPSULE PO SCH (09:00)
[2021-01-01] MEDS ORDERED: FUROSEMIDE 40 MG/4 ML VIAL IVP SCH (09:15)
[2021-01-01 11:23] VITALS: BP 167/77
[2021-01-01] MEDS ORDERED: FUROSEMIDE 40 MG TABLET PO SCH (14:00)
--- NOTE | 2021-01-01 14:16 | NUR ---
DISCHARGE Pt discharged today by Dr. Chandler. Pt verbalized understanding of DC paperwork and all questions addressed. All questions addressed. Pt ambulated to spouses car from unit. VSS and GCS 15 upon DC. CC, RN
--- NOTE | 2021-01-01 15:03 | RAD ---
Indication: Reason: soa + d dimer / Spl. Instructions: CAD, CHF / History: Technique: Static images are obtained of both lungs following IV administration of 5.5 mCi of 99 M te chnetium MAA. Comparison: One day prior Findings: Patchy perfusion defects are seen. Can not assess whether this is matched or mismatched given the lack of ventilation images. Impression: 1. Overall low probability of pulmonary embolus. Electronically signed by: Pedro Salinas MD (01/01/2021 3:01 PM) [id number]
[2021-01-07] MEDS ORDERED: NON FORMULARY ITEM (Semaglutide (Ozempic) 1 MG) SQ SCH (09:00)
--- NOTE | 2021-01-26 14:30 | DS ---
DATE OF DISCHARGE: 01/01/2021 HOSPITAL COURSE: A 70-year-old male came in with increased shortness of breath, orthopnea and dyspnea. The patient had been given oral antidiuretics, but unable to sufficiently diurese. He has +2 pitting edema and his BNP was close to 3800. The patient was admitted to the hospital for further evaluation and treatment of his acute on top of chronic diastolic heart failure. The patient was admitted and placed on IV Lasix. This patient diuresed very nicely and his weight came down accordingly. The patient's blood pressure was still on the high side at 167/77, pulse of 107-80 beats per minute. He was afebrile. The patient made excellent progress overall. He was diuresed and as noted made good progress. He will follow up with his maritime guard as an outpatient. His chest x-ray, V/Q was negative. The patient otherwise his labs did show chronic kidney disease with a GFR of approximately 40. The patient will be monitored as an outpatient. IMPRESSION: Acute on top of chronic diastolic heart failure, moderate protein malnutrition, chronic kidney disease stage 3A, hyperglycemia, anemia of chronic disease, elevated D-dimer. The patient will be on a heart healthy diet, low sodium, decreased fluids and monitor him accordingly and make a followup with his maritime guard as well as with his primary care doctor as an outpatient. ZAID/PARISA DR: Tosin TID: [id number]
== END 2021-01-01 14:10 | disposition home or self-care (01) | DRG 291 ==
LOC: 1 SOUTH 16:34
PROVIDERS: ADMIT Family Medicine; ATTEND Family Medicine
DX: I13.0 Hypertensive heart and chronic kidney disease with heart failure and stage 1 through stage 4 chronic kidney disease, or unspecified chronic kidney disease (principal); I50.33 Acute on chronic diastolic (congestive) heart failure; E44.0 Moderate protein-calorie malnutrition; E11.43 Type 2 diabetes mellitus with diabetic autonomic (poly)neuropathy; R19.7 Diarrhea, unspecified; F43.10 Post-traumatic stress disorder, unspecified; K21.9 Gastro-esophageal reflux disease without esophagitis; I48.91 Unspecified atrial fibrillation; N18.31 Chronic kidney disease, stage 3a; D63.8 Anemia in other chronic diseases classified elsewhere; E11.65 Type 2 diabetes mellitus with hyperglycemia; E11.22 Type 2 diabetes mellitus with diabetic chronic kidney disease; K31.84 Gastroparesis; Z86.73 Personal history of transient ischemic attack (TIA), and cerebral infarction without residual deficits; Z86.018 Personal history of other benign neoplasm; Z80.9 Family history of malignant neoplasm, unspecified; Z87.891 Personal history of nicotine dependence; Z79.899 Other long term (current) drug therapy; Z88.3 Allergy status to other anti-infective agents
CPT/HCPCS: 36415; 71046; 78580; 80053; 82550; 83605; 83880; 84443; 84484; 85025; 85379; 85610; 87086; 93005; 96374; A9540; J1940; 97530

== ENCOUNTER 2021-04-11 14:44 | Emergency (ER) | payer MEDICARE, BC ==
[~2021-04-11] VITALS: Ht 170.2 cm; Wt 90.0 kg
[~2021-04-11 14:44] MED LIST changes: +CARV6.2541 PO; +CHOL5POW PO; +LIPA1CAP43 PO
--- NOTE | 2021-04-11 15:04 | RAD ---
CT Head W/O Contrast: History: Reason: L SIDED WEAKNESS / Spl. Instructions: / History: Comparison: none Axial images were obtained without contrast. There is acute intraparenchymal hemorrhage just medial to the sylvian fissure on the right that measu res 3.5 x 3.1 cm and has mild surrounding vasogenic edema. This results in mild 4 mm right to left mi dline shift. There is moderate diffuse atrophy. There is no extra-axial fluid collections. There is no hydrocephalus. Impression: Acute intraparenchymal hemorrhage on the right with mild mass effect and midline shift. End impression These results were called to the emergency room physician and verified by read back at 2:59 PM. PQRS Compliance Statement: One or more of the following individualized dose reduction techniques were utilized for this examinat ion: 1. Automated exposure control 2. Adjustment of the mA and/or kV according to patient size 3. Use of iterative reconstruction technique FOR INTERNAL CODING PURPOSES Critical result: Findings discussed with the emergency department at 04/11/2021 2:59 PM. RESULT CODE: (C) Electronically signed by: Dionicio Lujan III, MD (04/11/2021 3:02 PM) [facility]
--- NOTE | 2021-04-11 15:11 | PHYS DOC ---
Past History Past Medical History: A-Fib, Arthritis, Bronchitis, Cystic Fibrosis, CHF, Hypertension Past Surgical History: No Surgical History Alcohol Use: Rarely Adult General Chief Complaint Chief Complaint: ALTERED MENTAL STATUS HPI HPI Patient is a 70-year-old male presenting via EMS for altered mental status. History initially obtained from paramedics. Paramedics report arriving to scene after called EMS for evaluation of her . Patient was on couch and had a suspected unwitnessed fall down onto carpet floor and, "he must of hit his head on the coffee table or something". admits patient had not been acting normal for preceding 24 hours citing patient has been a little more confused than baseline and unstable on his feet. Grandson reportedly found patient on floor in between the couch and coffee table and because he was last seen there approximately 20 minutes prior in a seated position on the couch, it is suspected that he fell. Regardless, on evaluation grandson reported that patient was having difficulty speaking, had new onset left lower facial droop, left arm and left leg motor weakness. was called from another room and confirmed that reported findings were new and so EMS was called. EMS report patient was initially ambulatory but favoring his left side with decreased motor function and so, decision was made to stop ambulating patient and transport him immediately to our facility with code stroke activated. Patient has significant past medical history most pertinent for chronic atrial fibrillation that is rate controlled, he is on warfarin with last known INR 3.5 ~1-week ago. He has received x2 doses of Moderna COVID-19 vaccine and has had no known sick contacts, URI symptoms or travel. He has history of TIA but no prior history of stroke and/or intercerebral bleed. On arrival, patient reports focal pain behind right eye. He has full capacity at time of arrival and confirms he is full CODE STATUS Review of Systems Review of Systems Fourteen body systems of review of systems have been reviewed. See HPI for pertinent positives and negative responses, other maldonado all other systems are negative, non-pertinent or non-contributory Allergies Allergies Allergies Coded Allergies Type Severity Reaction Last Updated Verified No Known Drug Allergies 01/30/17 No Physical Exam Physical Exam Constitutional: Pt is oriented to person, place, but not time. GCS 14. He is age-appropriate. He does appear lethargic HEENT: Head: Normocephalic and atraumatic. TMs clear, no hemotympanum, no rodriguez sign Conjunctivae and EOM are normal but there is slight difficulty/partial gaze palsy to left that can be overcome. Pupils are equal, round, and reactive to light. Oropharynx is clear and dry. No hematomas or lacerations or abrasions to face or scalp OP clear, no blood, no malocclusion, dentition intact Nares clear, no nasal septal hematoma Midface stable Neck: C-spine midline nontender, no step-offs Cardiovascular: Normal rate, irregular rhythm and normal heart sounds. Pulmonary/Chest: Effort normal and breath sounds normal. No respiratory distress. No wheezes. CTA bilaterally, no flail chest Abdominal: Soft. Bowel sounds are normal. Pt exhibits no distension. There is no tenderness. Musculoskeletal: No bony tenderness to extremities, no deformities, full ROM extremities Chest wall stable Pelvis stable and non-tender No vertebral TTP and spine without stepoffs Neurological: Pt is alert and oriented to person, place, but not time which is not patient's baseline Moving all extremities willfully, able to wiggle all fingers and toes Decreased motor function of left lower face in addition to left upper and lower extremities versus contralateral limbs Patient able to delineate between sharp and dull touch of all x4 extremities but does admit decreased sensation in bilateral lower extremities that is chronic due to underlying neuropathy Downgoing toes bilaterally with stimulation Skin: Skin is warm and dry. No abrasions, no lacerations Psychiatric: Behavior is appropriate for situation Current Patient Data Vital Signs Vital Signs Date Time Temp Pulse Resp B/P (MAP) Pulse Ox O2 Delivery O2 Flow Rate FiO2 04/11/21 15:11 99.0 92 18 160/101 97 Room Air Vital Signs Date Time Temp Pulse Resp B/P (MAP) Pulse Ox O2 Delivery O2 Flow Rate FiO2 04/11/21 15:11 99.0 92 18 160/101 97 Room Air Lab Results Laboratory Tests Test 04/11/21 14:50 04/11/21 14:51 04/11/21 14:57 04/11/21 15:00 Glucose (Fingerstick) 193 mg/dL Prothrombin Time 20.4 SEC Prothromb Time International Ratio 2.0 Activated Partial Thromboplast Time 31 SEC Sodium Level 141 mmol/L Potassium Level 4.7 mmol/L Chloride Level 107 mmol/L Carbon Dioxide Level 24 mmol/L Anion Gap 10 Blood Urea Nitrogen 31 mg/dL Creatinine 1.6 mg/dL Estimated GFR (Cockcroft-Gault) 42.7 Glucose Level 196 mg/dL Calcium Level 8.5 mg/dL Troponin I Quantitative < 0.017 ng/mL Ethyl Alcohol Level < 10 mg/dL White Blood Count 11.6 x10^3/uL Red Blood Count 3.99 x10^6/uL Hemoglobin 12.3 g/dL Hematocrit 37.3 % Mean Corpuscular Volume 93 fL Mean Corpuscular Hemoglobin 31 pg Mean Corpuscular Hemoglobin Concent 33 g/dL Red Cell Distribution Width 14.7 % Platelet Count 169 x10^3/uL Neutrophils (%) (Auto) 85 % Lymphocytes (%) (Auto) 8 % Monocytes (%) (Auto) 5 % Eosinophils (%) (Auto) 0 % Basophils (%) (Auto) 1 % Neutrophils # (Auto) 9.8 x10^3uL Lymphocytes # (Auto) 1.0 x10^3/uL Monocytes # (Auto) 0.6 x10^3/uL Eosinophils # (Auto) 0.0 x10^3/uL Basophils # (Auto) 0.1 x10^3/uL SARS-CoV-2 Antigen (Rapid) Negative Current Medications Medications (Trade) Dose Ordered Sig/Chiquita Route PRN Reason Start Time Stop Time Status Last Admin Dose Admin Nicardipine HCl 50 mg/Sodium Chloride 250 ml @ 25 mls/hr CONT PRN IV SEE I/O RECORD 04/11/21 15:45 04/11/21 15:53 Nicardipine HCl (Cardene) 25 mg STK-MED ONCE IV 04/11/21 15:45 04/11/21 15:46 DC Nicardipine HCl (Cardene) 25 mg STK-MED ONCE IV 04/11/21 15:46 04/11/21 15:47 DC Sodium Chloride 250 ml @ As Directed STK-MED ONCE .ROUTE 04/11/21 15:47 04/11/21 15:47 DC EKG EKG EKG ordered and interpreted by myself at 1519 hrs. as atrial fibrillation with a ventricular rate of 89 bpm, unremarkable intervals, no axis deviation, no obvious ischemic findings, no STEMI Radiology/Procedures Radiology/Procedures CT Head W/O Contrast: History: Reason: L SIDED WEAKNESS / Spl. Instructions: / History: Comparison: none Axial images were obtained without contrast. There is acute intraparenchymal hemorrhage just medial to the sylvian fissure on the right that measures 3.5 x 3.1 cm and has mild surrounding vasogenic edema. This results in mild 4 mm right to left midline shift. There is moderate diffuse atrophy. There is no extra-axial fluid collections. There is no hydrocephalus. Impression: Acute intraparenchymal hemorrhage on the right with mild mass effect and midline shift. End impression //////////////////////////////// CT C-Spine without contrast: Clinical History: Reason: fall / Spl. Instructions: / History: Technique: Axial helical images of the cervical spine were obtained without contrast, axial coronal and sagittal reconstruction was performed. Findings: There is no loss of vertebral body stature. There is no prevertebral soft t issue swelling. The vertebral bodies are well aligned. The C1-C2 relationship is normal. The visualized osseous structures appear normal. Evaluation of the central canal is limited without contrast. There is multiple posterior disc bulges resulting in flattening of the thecal sac. There does not appear to be gross flattening of the cervical cord. There is moderate narrowing of multiple neuroforamen. Impression: No acute findings. Clinical correlation suggested. End impression CT chest abdomen and pelvis without contrast: Axial helical images of the chest, abdomen and pelvis were obtained without IV contrast. Comparison: none CT chest without contrast: There is no mediastinal lymphadenopathy or hematoma. There is no hilar lymphadenopathy. Impression: No acute findings. End Impression CT ABDOMEN and pelvis without IV CONTRAST: Findings: Liver: Unremarkable Spleen: Unremarkable Pancreas: Atrophic Adrenal Glands: Unremarkable Kidneys: Tiny nonobstructive stone left renal pelvis. Small simple cysts on the left Evaluation of stomach and bowel is limited without oral contrast. Evaluation of solid organs is limited without IV contrast. There is no mass or lymphadenopathy. There is no free air. There is no free fluid. The bladder is fairly distended but otherwise appears normal. Impression: No acute findings. Heart Score C/O Chest Pain: No HEART Score for Chest Pain: HEART Score for Chest Pain Response (Comments) Value History Moderately Suspicious 1 ECG Nonspecific Repolarizatio 1 Age > 65 2 Risk Factors >3 Risk Factors or Hx CAD 2 Troponin < Normal Limit 0 Total 6 Risk Factors: Risk Factors: DM, Current or recent (<one month) smoker, HTN, HLP, family history of CAD, obesity. Risk Scores: Risk Factors: DM, Current or recent (<one month) smoker, HTN, HLP, family history of CAD, obesity. Course & Med Decision Making Course & Med Decision Making Airway patent, breathing unlabored, vitals remarkable for slight hypertension only. [id number] glucose unremarkable and IV access was obtained in route to CT scanner Patient's pupils equal bilaterally. There is marked left lower facial droop with difficulty articulating words that spares forehead with associated motor weakness of left upper and lower extremity. Patient reports generalized decrease sensations of extremities due to chronic neuropathy CT head, neck, chest and pelvis were obtained given unclear history with initial read by myself concerning for 3.5 cm intraparenchymal hemorrhage with mild right to left midline shift, remaining imaging was negative Comprehensive ER work-up obtained without any notable abnormalities, INR 2.0 [facility] contacted and case reviewed, patient accepted under the care of Dr. Mitchell. Appropriate precautions for intracranial bleed taken such as elevating patient to 30 degrees etc. While waiting transport via helicopter, patient's systolic blood pressure increased to >180. Decision was made to start nicardipine drip. Comprehensive signout given to [facility] team, patient GCS remained 14 at time of departure updated on status of patient and plan of care. I reiterated critical status of patient. She reiterates he is full CODE STATUS at present. Unclear whether because of patient's interparenchymal bleed was traumatic from a fall versus hypertensive in etiology given history of ~24hrs AMS Critical Care Time This patient required critical care. Due to the fact that the patient required a significant amount of one on one physician - patient contact time, ordering and review of studies, arranging urgent treatment with development of a management plan, evaluation of patients response to treatment with frequent reassessments, and discussions with other providers this patient required 45 minutes of critical care time. Critical care time was indicated due to the inherent instability and/or potential for instability in this patient. The critical care time that is allocated to this patient is above and beyond any time spent on any other billable procedures performed on this patient. Dragon Disclaimer Dragon Disclaimer This electronic medical record was generated, in whole or in part, using a voice recognition dictation system. NIH Stroke Scale: NIH Stroke Scale Response (Comments) Value Level of Consciousness: 0 Alert/Responsive 0 LOC Questions: 1 Answers one correctly 1 LOC Commands: 0 Performs both tasks 0 Best Gaze: 1 Partial gaze palsy 1 Visual: 0 No visual loss 0 Motor - Left Arm 1 Drifts, but can hold 1 Motor - Right Arm 0 No drift 0 Motor - Left Leg 1 Drift but can hold 1 Motor: Right Leg 0 No drift 0 Limb Ataxia: 1 One limb 1 Sensory: 0 No loss 0 Best Language: 0 Normal 0 Dysathria: 1 Mild to moderate 1 Extinction and Inattention: 0 Normal 0 Total 6 Departure Departure: Impression: Primary Impression: Intracerebral hemorrhage Additional Impressions: Atrial fibrillation, chronic Warfarin anticoagulation HTN (hypertension) Disposition: 02 SHORT TERM HOSPITAL ([facility]) Admitting Physician: Other (DR MITCHELL) Referrals: ISABEL GTZ MD (PCP) Problem Qualifiers LEA GUADALUPE DO Apr 11, 2021 15:11
--- NOTE | 2021-04-11 15:41 | RAD ---
CT C-Spine without contrast: Clinical History: Reason: fall / Spl. Instructions: / History: Technique: Axial helical images of the cervical spine were obtained without contrast, axial coronal and sagittal reconstruction was performed. Findings: There is no loss of vertebral body stature. There is no prevertebral soft tissue swelling. The vert ebral bodies are well aligned. The C1-C2 relationship is normal. The visualized osseous structures a ppear normal. Evaluation of the central canal is limited without contrast. There is multiple posterio r disc bulges resulting in flattening of the thecal sac. There does not appear to be gross flattening of the cervical cord. There is moderate narrowing of multiple neuroforamen. Impression: No acute findings. Clinical correlation suggested. End impression CT chest abdomen and pelvis without contrast: Axial helical images of the chest, abdomen and pelvis were obtained without IV contrast. Comparison: none CT chest without contrast: There is no mediastinal lymphadenopathy or hematoma. There is no hilar lymphadenopathy. Impression: No acute findings. End Impression CT ABDOMEN and pelvis without IV CONTRAST: Findings: Liver: Unremarkable Spleen: Unremarkable Pancreas: Atrophic Adrenal Glands: Unremarkable Kidneys: Tiny nonobstructive stone left renal pelvis. Small simple cysts on the left Evaluation of stomach and bowel is limited without oral contrast. Evaluation of solid organs is limit ed without IV contrast. There is no mass or lymphadenopathy. There is no free air. There is no free fluid. The bladder is fairly distended but otherwise appears normal. Impression: No acute findings. End impression PQRS Compliance Statement: One or more of the following individualized dose reduction techniques were utilized for this examinat ion: 1. Automated exposure control 2. Adjustment of the mA and/or kV according to patient size 3. Use of iterative reconstruction technique Electronically signed by: Dionicio Lujan III, MD (04/11/2021 3:39 PM) [facility]
[2021-04-11] MEDS ORDERED: niCARdipine INJ. IV ONE ×2 (15:45→15:46)
[2021-04-11 15:46] LABS: BASO # 0.1 x10^3/uL (0.0-0.2); BASO % 1 % (0-3); EOS % 0 % (0-3); HEMATOCRIT 37.3 % (39.0-53.0); HEMOGLOBIN 12.3 g/dL (13.0-17.5); LYMPH % 8 % (24-48); MEAN CORPUSCULAR HEMOGLOBIN 31 pg (25-35); MEAN CORPUSCULAR HGB CONC 33 g/dL (31-37); MEAN CORPUSCULAR VOLUME 93 fL (79-100); MONO # 0.6 x10^3/uL (0.0-1.1); MONO % 5 % (0-9); NEUT # 9.8 x10^3uL (1.8-7.7); NEUT % 85 % (31-73); PLATELET COUNT 169 x10^3/uL (140-400); RED BLOOD COUNT 3.99 x10^6/uL (4.30-5.70); RED CELL DISTRIBUTION WIDTH 14.7 % (11.5-14.5); WHITE BLOOD COUNT 11.6 x10^3/uL (4.0-11.0)
[2021-04-11 15:47] LABS: CALCIUM 8.5 mg/dL (8.5-10.1); CREATININE 1.6 mg/dL (0.7-1.3); GFR 42.7; POTASSIUM 4.7 mmol/L (3.5-5.1)
[2021-04-11] MEDS ORDERED: IV NORMAL SALINE 250ML 250 ML ONE (15:47)
[2021-04-11 16:05] VITALS: BP 160/79
--- NOTE | 2021-04-11 16:12 | EKG ---
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
== END 2021-04-11 16:11 | disposition short-term general hospital (02) ==
LOC: ER 14:44
DX: I61.9 Nontraumatic intracerebral hemorrhage, unspecified (principal); I48.20 Chronic atrial fibrillation, unspecified; I48.91 Unspecified atrial fibrillation; M19.90 Unspecified osteoarthritis, unspecified site; I11.0 Hypertensive heart disease with heart failure; I50.9 Heart failure, unspecified; Z86.73 Personal history of transient ischemic attack (TIA), and cerebral infarction without residual deficits
CPT/HCPCS: 36415; 70450; 71250; 72125; 74176; 80048; 82947; 84484; 85025; 85610; 85730; 87426; 93005; 96374; 99291; C9803; G0480; J7050; U0003; 96365

== ENCOUNTER 2021-05-24 14:19 | Emergency (ER) | payer MEDICARE, BC ==
[~2021-05-24] VITALS: Ht 170.2 cm; Wt 87.5 kg
[~2021-05-24 14:19] MED LIST changes: -DULO60CA6 PO; +DULO60CA7 PO; +POTA-121 PO; -POTA20TA4 PO
--- NOTE | 2021-05-24 15:02 | PHYS DOC ---
Past History Past Medical History: A-Fib, Arthritis, Bronchitis, Cystic Fibrosis, CHF, Hypertension Additional Past Medical Histor: Stage 2 kidney disease. Past Surgical History: No Surgical History Alcohol Use: Rarely General Adult EDM: Chief Complaint: Hypotension HPI: HPI: 70-year-old male presents with low blood pressure and dehydration. The patient has been having a fever up to 101 the last 3 days at home. It seems to spike at night and then improve during the day. He admits to an intermittent cough without significant shortness of breath. He denies chest pain. No change in bowel or bladder habits. The patient was fully vaccinated against COVID-19. He had his flu shot about a week ago. He has not been drinking as much as he knows he should. His agrees. Review of Systems: Review of Systems: Constitutional: Fever and chills Eyes: Denies change in visual acuity HENT: Denies nasal congestion or sore throat Respiratory: Cough without significant shortness of breath Cardiovascular: Denies chest pain or edema GI: Denies abdominal pain, nausea, vomiting, bloody stools or diarrhea : Denies dysuria Musculoskeletal: Denies back pain or joint pain Integument: Denies rash Neurologic: Denies headache, focal weakness or sensory changes Endocrine: Denies polyuria or polydipsia Lymphatic: Denies swollen glands Psychiatric: Denies depression or anxiety Allergies: Allergies: Allergies Coded Allergies Type Severity Reaction Last Updated Verified No Known Drug Allergies 01/30/17 No Physical Exam: PE: Constitutional: Well developed, well nourished, no acute distress, non-toxic appearance. [] HENT: Normocephalic, atraumatic, bilateral external ears normal, oropharynx dry, no oral exudates, nose normal. [] Eyes: PERRLA, EOMI, conjunctiva normal, no discharge. [] Neck: Normal range of motion, no tenderness, supple, no stridor. [] Cardiovascular: Heart rate 72, regular rhythm, no murmur [] Lungs & Thorax: Bilateral breath sounds clear to auscultation [] Abdomen: Bowel sounds normal, soft, no tenderness, no masses, no pulsatile masses. [] Skin: Warm, dry, no erythema, no rash. [] Back: No tenderness, no CVA tenderness. [] Extremities: No tenderness, no cyanosis, no clubbing, ROM intact, no edema. [] Neurologic: Alert and oriented X 3, normal motor function, normal sensory function, no focal deficits noted. [] Psychologic: Affect normal, judgement normal, mood normal. [] Current Patient Data: Vital Signs: Vital Signs Date Time Temp Pulse Resp B/P (MAP) Pulse Ox O2 Delivery O2 Flow Rate FiO2 05/24/21 14:30 98.2 73 18 120/65 (83) 100 EKG: EKG: Irregular rhythm, rate 67, normal axis, no ST elevation or depression [] Radiology/Procedures: Radiology/Procedures: [] Impressions: EXAM: Chest, single view. HISTORY: Altered mental status. COMPARISON: 04/11/2021. FINDINGS: A frontal view of the chest is obtained. There is stable eventration of the right hemidiaphragm. There is no infiltrate, pleural effusion or pneumo thorax. There is stable cardiomegaly. IMPRESSION: No acute pulmonary finding. Electronically signed by: Jelena Sanchez MD (05/24/2021 3:32 PM) [id number] DICTATED AND SIGNED BY: JELENA SANCHEZ MD DATE: 05/24/21 1531 CC: GREY CARRIZALES DO; ISABEL GTZ MD ~MTH0 0 Heart Score: C/O Chest Pain: No Risk Factors: Risk Factors: DM, Current or recent (<one month) smoker, HTN, HLP, family history of CAD, obesity. Risk Scores: Score 0 - 3: 2.5% MACE over next 6 weeks - Discharge Home Score 4 - 6: 20.3% MACE over next 6 weeks - Admit for Clinical Observation Score 7 - 10: 72.7% MACE over next 6 weeks - Early Invasive Strategies Course & Med Decision Making: Course & Med Decision Making Pertinent Labs and Imaging studies reviewed. (See chart for details) The patient's chest x-ray was negative for acute findings. His labs are significant for hemoglobin in the nines. He has a previous in the chart similar to this but is usually 1-2 g/dL higher. His creatinine is 2.2 which is an increase from his baseline. We have given him normal saline bolus as he appears clinically dry. EKG shows rate controlled A. fib. The patient's Covid test is negative. He appears to be suffering from some other viral illness and he has become dehydrated. I stressed to the patient the importance of drinking adequate fluids as well as other supportive care. He is stable for discharge at this time. [] Dragon Disclaimer: Dragon Disclaimer: This electronic medical record was generated, in whole or in part, using a voice recognition dictation system. Departure Departure: Impression: Primary Impression: Hypotension Additional Impressions: Dehydration Anemia Disposition: 01 HOME / SELF CARE / HOMELESS Condition: STABLE Referrals: ISABEL GTZ MD (PCP) Patient Instructions: Dehydration, Adult, [id number], Hypotension, [id number] GREY CARRIZALES DO May 24, 2021 15:02
[2021-05-24] MEDS: IV NORMAL SALINE 1,000ML 1,000 ML IV ONE (15:15)
[2021-05-24 15:19] LABS: BASO # 0.1 x10^3/uL (0.0-0.2); BASO % 1 % (0-3); EOS % 0 % (0-3); HEMATOCRIT 29.7 % (39.0-53.0); HEMOGLOBIN 9.6 g/dL (13.0-17.5); LYMPH # 0.6 x10^3/uL (1.0-4.8); LYMPH % 5 % (24-48); MEAN CORPUSCULAR HEMOGLOBIN 30 pg (25-35); MEAN CORPUSCULAR HGB CONC 32 g/dL (31-37); MEAN CORPUSCULAR VOLUME 93 fL (79-100); MONO # 1.4 x10^3/uL (0.0-1.1); MONO % 12 % (0-9); NEUT # 9.9 x10^3uL (1.8-7.7); NEUT % 82 % (31-73); PLATELET COUNT 135 x10^3/uL (140-400); RED BLOOD COUNT 3.18 x10^6/uL (4.30-5.70); RED CELL DISTRIBUTION WIDTH 13.9 % (11.5-14.5)
--- NOTE | 2021-05-24 15:28 | EKG ---
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
[2021-05-24 15:32] LABS: CALCIUM 8.4 mg/dL (8.5-10.1); CREATININE 2.2 mg/dL (0.7-1.3); GFR 29.6; POTASSIUM 4.2 mmol/L (3.5-5.1)
--- NOTE | 2021-05-24 15:34 | RAD ---
EXAM: Chest, single view. HISTORY: Altered mental status. COMPARISON: 04/11/2021. FINDINGS: A frontal view of the chest is obtained. There is stable eventration of the right hemidiaph ragm. There is no infiltrate, pleural effusion or pneumothorax. There is stable cardiomegaly. IMPRESSION: No acute pulmonary finding. Electronically signed by: Jelena Sanchez MD (05/24/2021 3:32 PM) [id number]
[2021-05-24 15:38] LABS: ALBUMIN/GLOBULIN RATIO 0.9 (1.0-1.7); TOTAL BILIRUBIN 0.7 mg/dL (0.2-1.0); TOTAL PROTEIN 6.3 g/dL (6.4-8.2)
[2021-05-24 18:00] VITALS: BP 131/74
[2021-05-24 18:51] LABS: BILIRUBIN,URINE NEG (NEG); CLARITY,URINE CLEAR; COLOR,URINE YELLOW; GLUCOSE,URINE NEG (NEG); NITRITE,URINE NEG (NEG); UROBILINOGEN,URINE 0.2 mg/dL (0.2 mg/dL)
[2021-05-24 18:52] LABS: BACTERIA,URINE MANY /HPF (0-FEW); WBC,URINE 20-40 /HPF (0-4)
[2021-05-24] MEDS ORDERED: CEPH500C PO (23:03)
== END 2021-05-24 18:40 | disposition home or self-care (01) ==
LOC: ER 14:19
DX: I95.9 Hypotension, unspecified (principal); E86.0 Dehydration; D64.9 Anemia, unspecified; I48.91 Unspecified atrial fibrillation; M19.90 Unspecified osteoarthritis, unspecified site; I13.0 Hypertensive heart and chronic kidney disease with heart failure and stage 1 through stage 4 chronic kidney disease, or unspecified chronic kidney disease; N18.2 Chronic kidney disease, stage 2 (mild); I50.9 Heart failure, unspecified; Z20.822 Contact with and (suspected) exposure to COVID-19
CPT/HCPCS: 36415; 71045; 80053; 81001; 84484; 85025; 87077; 87086; 87186; 87426; 93005; 96360; 99285; J7030; P9612; U0003

== ENCOUNTER 2021-05-29 12:04 | Emergency (ER) | payer MEDICARE, BC ==
[~2021-05-29] VITALS: Ht 170.2 cm; Wt 87.5 kg
[~2021-05-29 12:04] MED LIST changes: +CEPH500C PO
--- NOTE | 2021-05-29 12:58 | EKG ---
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
--- NOTE | 2021-05-29 12:59 | RAD ---
XR CHEST 1V Clinical History: Reason: fatigue / Spl. Instructions: / History: Technique: AP view of the chest was obtained at 05/29/2021 12:40 PM. Comparison: May 24, 2021. Findings: The cardiomediastinal silhouette is normal. The pulmonary vasculature is normal. The lungs and pleura l margins are clear. Impression: No evidence of an acute cardiopulmonary process. Electronically signed by: Dionicio Lujan III, MD (05/29/2021 12:56 PM) [facility]
[2021-05-29 13:06] LABS: BASO # 0.1 x10^3/uL (0.0-0.2); BASO % 1 % (0-3); EOS # 0.2 x10^3/uL (0.0-0.7); EOS % 3 % (0-3); HEMATOCRIT 31.8 % (39.0-53.0); HEMOGLOBIN 10.6 g/dL (13.0-17.5); LYMPH # 0.7 x10^3/uL (1.0-4.8); LYMPH % 10 % (24-48); MEAN CORPUSCULAR HEMOGLOBIN 31 pg (25-35); MEAN CORPUSCULAR HGB CONC 33 g/dL (31-37); MEAN CORPUSCULAR VOLUME 92 fL (79-100); MONO # 0.8 x10^3/uL (0.0-1.1); MONO % 11 % (0-9); NEUT # 5.5 x10^3uL (1.8-7.7); NEUT % 75 % (31-73); PLATELET COUNT 186 x10^3/uL (140-400); RED BLOOD COUNT 3.46 x10^6/uL (4.30-5.70); RED CELL DISTRIBUTION WIDTH 14.3 % (11.5-14.5); WHITE BLOOD COUNT 7.3 x10^3/uL (4.0-11.0)
[2021-05-29 13:15] LABS: CALCIUM 8.8 mg/dL (8.5-10.1); CREATININE 1.6 mg/dL (0.7-1.3); GFR 42.7; POTASSIUM 3.8 mmol/L (3.5-5.1)
[2021-05-29 13:21] LABS: ALBUMIN 2.8 g/dL (3.4-5.0); ALBUMIN/GLOBULIN RATIO 0.6 (1.0-1.7); MAGNESIUM 2.1 mg/dL (1.8-2.4); TOTAL BILIRUBIN 0.3 mg/dL (0.2-1.0); TOTAL PROTEIN 7.2 g/dL (6.4-8.2)
[2021-05-29] MEDS ORDERED: IV NORMAL SALINE 1,000ML 1,000 ML IV ONE (13:45)
--- NOTE | 2021-05-29 15:25 | PHYS DOC ---
Past History Past Medical History: A-Fib, Arthritis, Bronchitis, Cystic Fibrosis, CHF, Hypertension Additional Past Medical Histor: Stage 2 kidney disease. Past Surgical History: No Surgical History Alcohol Use: None General Adult EDM: Chief Complaint: FATIGUE HPI: HPI: Patient is a 70-year-old male who presents after being sent in by Dr. Jhaveri for concerns of a low hemoglobin. Patient denies pain, denies any complaints at this time. Patient states "I have no idea why I am even here I felt better today than I have felt in a while". History of A. fib, CHF, hypertension. Review of Systems: Review of Systems: ROS At least 10 ROS systems have been reviewed and are negative except as documented in the HPI. General: Negative except as outlined in HPI above. Skin: Negative except as outlined in HPI above. HEENT: Negative except as outlined in HPI above. Neck: Negative except as outlined in HPI above. Respiratory: Negative except as outlined in HPI above.. Cardiovascular: Negative except as outlined in HPI above. Abdomen: Negative except as outlined in HPI above. : Negative except as outlined in HPI above. Back/MSK: Negative except as outlined in HPI above. Neuro: Negative except as outlined in HPI above. Psych: Negative except as outlined in HPI above. Current Medications: Current Meds: Current Medications Medications (Trade) Dose Ordered Sig/Chiquita Start Time Stop Time Status Last Admin Dose Admin Sodium Chloride 1,000 ml @ 1,000 mls/hr 1X ONCE 05/29/21 13:45 05/29/21 14:44 DC 05/29/21 13:59 1,000 MLS/HR Allergies: Allergies: Allergies Coded Allergies Type Severity Reaction Last Updated Verified No Known Drug Allergies 05/24/21 No Physical Exam: PE: Constitutional: Well developed, well nourished, no acute distress, non-toxic appearance. [] HENT: Normocephalic, atraumatic, bilateral external ears normal, oropharynx moist, no oral exudates, nose normal. [] Eyes: PERRLA, EOMI, conjunctiva normal, no discharge. [] Neck: Normal range of motion, no tenderness, supple, no stridor. [] Cardiovascular:Heart rate regular rhythm, no murmur [] Lungs & Thorax: Bilateral breath sounds clear to auscultation [] Abdomen: Bowel sounds normal, soft, no tenderness, no masses, no pulsatile masses. [] Skin: Warm, dry, no erythema, no rash. [] Back: No tenderness, no CVA tenderness. [] Extremities: No tenderness, no cyanosis, no clubbing, ROM intact, no edema. [] Neurologic: Alert and oriented X 3, normal motor function, normal sensory function, no focal deficits noted. [] Psychologic: Affect normal, judgement normal, mood normal. [] Current Patient Data: Labs: Laboratory Tests Test 05/29/21 12:41 White Blood Count 7.3 x10^3/uL (4.0-11.0) Red Blood Count 3.46 x10^6/uL (4.30-5.70) L Hemoglobin 10.6 g/dL (13.0-17.5) L Hematocrit 31.8 % (39.0-53.0) L Mean Corpuscular Volume 92 fL (79-100) Mean Corpuscular Hemoglobin 31 pg (25-35) Mean Corpuscular Hemoglobin Concent 33 g/dL (31-37) Red Cell Distribution Width 14.3 % (11.5-14.5) Platelet Count 186 x10^3/uL (140-400) Neutrophils (%) (Auto) 75 % (31-73) H Lymphocytes (%) (Auto) 10 % (24-48) L Monocytes (%) (Auto) 11 % (0-9) H Eosinophils (%) (Auto) 3 % (0-3) Basophils (%) (Auto) 1 % (0-3) Neutrophils # (Auto) 5.5 x10^3uL (1.8-7.7) Lymphocytes # (Auto) 0.7 x10^3/uL (1.0-4.8) L Monocytes # (Auto) 0.8 x10^3/uL (0.0-1.1) Eosinophils # (Auto) 0.2 x10^3/uL (0.0-0.7) Basophils # (Auto) 0.1 x10^3/uL (0.0-0.2) Sodium Level 144 mmol/L (136-145) Potassium Level 3.8 mmol/L (3.5-5.1) Chloride Level 110 mmol/L (98-107) H Carbon Dioxide Level 24 mmol/L (21-32) Anion Gap 10 (6-14) Blood Urea Nitrogen 26 mg/dL (8-26) Creatinine 1.6 mg/dL (0.7-1.3) H Estimated GFR (Cockcroft-Gault) 42.7 BUN/Creatinine Ratio 16 (6-20) Glucose Level 124 mg/dL (70-99) H Calcium Level 8.8 mg/dL (8.5-10.1) Magnesium Level 2.1 mg/dL (1.8-2.4) Total Bilirubin 0.3 mg/dL (0.2-1.0) Aspartate Amino Transferase (AST) 18 U/L (15-37) Alanine Aminotransferase (ALT) 26 U/L (16-63) Alkaline Phosphatase 82 U/L (46-116) Total Protein 7.2 g/dL (6.4-8.2) Albumin 2.8 g/dL (3.4-5.0) L Albumin/Globulin Ratio 0.6 (1.0-1.7) L Vital Signs: Vital Signs Date Time Temp Pulse Resp B/P (MAP) Pulse Ox O2 Delivery O2 Flow Rate FiO2 05/29/21 12:31 97.6 72 18 156/84 (108) 99 Room Air EKG: EKG: Irregular rhythm. Heart rate 73 bpm. No STEMI. Read by Dr. Torres at 1257. [] Radiology/Procedures: Radiology/Procedures: [] Heart Score: C/O Chest Pain: No Risk Factors: Risk Factors: DM, Current or recent (<one month) smoker, HTN, HLP, family history of CAD, obesity. Risk Scores: Score 0 - 3: 2.5% MACE over next 6 weeks - Discharge Home Score 4 - 6: 20.3% MACE over next 6 weeks - Admit for Clinical Observation Score 7 - 10: 72.7% MACE over next 6 weeks - Early Invasive Strategies Course & Med Decision Making: Course & Med Decision Making Pertinent Labs and Imaging studies reviewed. (See chart for details) [] 70-year-old male presents from Dr. Jhaveri's office office to have lab work done. Patient denies pain, recent illness and has no complaints. Patient states that Dr. Jhaveri is concerned about abnormal hemoglobin and hematocrit. Hemoglobin and hematocrit are both within normal limits.All labs are unremarkable. Patient given normal saline bolus. Patient was unable to provide urine. Patient does state he is being treated for a UTI by Dr. Jhaveri and had a dose of Rocephin today at his office. Patient has an appointment on Monday with Dr. Jhaveri for a follow-up. Advised patient that he needs to keep his follow-up appointment and return to emergency room if he is any worsening symptoms or concerns. Patient is hemodynamically stable upon disposition. Patient reports he understands discharge instructions. Dragon Disclaimer: Dragon Disclaimer: This electronic medical record was generated, in whole or in part, using a voice recognition dictation system. Departure Departure: Impression: Primary Impression: Encounter for other specified special examinations Additional Impression: UTI (urinary tract infection) Qualified Codes: N39.0 - Urinary tract infection, site not specified Disposition: HOME / SELF CARE / HOMELESS Condition: STABLE Referrals: ISABEL GTZ MD (PCP) Additional Instructions: EMERGENCY DEPARTMENT GENERAL DISCHARGE INSTRUCTIONS Thank you for coming to [facility] (ED) today and trusting us with you care. We trust that you had a positivie experience in our Emergency Department. If you wish to speak to the department management, you may call the director at [phone]. YOUR FOLLOW UP INSTRUCTIONS ARE FOLLOWS: 1. Do you have a private Doctor? If you do not have a private doctor, please ask for a resource list of physicians or clinics that may be able to assist you with follow up care. 2. The Emergency Physician has interpreted your x-rays. The X-Ray specialist will also review them. If there is a change in the findings, you will be notified in 48 hours when at all possible. 3. A lab test or culture has been done, your results will be reviewed and you will be notified if you need a change in treatment. ADDITIONAL INSTRUCTIONS AND INFORMATION: 1. Your care today has been supervised by a physician who is specially trained in emergency care. Many problems require more than one evaluation for a complete diagnosis and treatment. We recommend that you schedule your follow up appointment as recommended to ensure complete treatment of you illness or injury. If you are unable to obtain follow up care and continue to have a problem, or if your condition worsens, we recommend that you return to the ED. 2. We are not able to safely determine your condition over the phone nor are we able to give sound medical advice over the phone. For these safety reasons, if you call for medical advice we will ask you to come to the ED for further evaluation. 3. If you have any questions regarding these discharge instructions please call the ED at [phone]. SAFETY INFORMATION: In the interest of safety, wellness, and injury prevention; we encourage you to wear your sealbelt, if you smoke; quite smoking, and we encourage family to use a protective helmet for bicycling and other sporting events that present an increased risk for head injury. IF YOUR SYMPTOMS WORSEN OR NEW SYMPTOMS DEVELOP, OR YOU HAVE CONCERNS ABOUT YOUR CONDITION; OR IF YOUR CONDITION WORSENS WHILE YOU ARE WAITING FOR YOUR FOLLOW UP APPOINTMENT; EITHER CONTACT YOUR PRIMARY CARE DOCTOR, THE PHYSICIAN WHOSE NAME AND NUMBER YOU WERE GIVEN, OR RETURN TO THE ED IMMEDIATELY. ROSA SOSA APRN May 29, 2021 15:24
[2021-05-29 15:30] VITALS: BP 158/66
[2021-05-29 16:10] LABS: COLOR,URINE YELLOW
[2021-05-29 16:11] LABS: BACTERIA,URINE FEW /HPF (0-FEW); BILIRUBIN,URINE NEG (NEG); CLARITY,URINE CLEAR; GLUCOSE,URINE NEG (NEG); NITRITE,URINE NEG (NEG); UROBILINOGEN,URINE 0.2 mg/dL (0.2 mg/dL)
== END 2021-05-29 15:30 | disposition home or self-care (01) ==
LOC: ER 12:04
DX: Z01.89 Encounter for other specified special examinations (principal); N39.0 Urinary tract infection, site not specified; I48.91 Unspecified atrial fibrillation; M19.90 Unspecified osteoarthritis, unspecified site; I11.0 Hypertensive heart disease with heart failure; I50.9 Heart failure, unspecified
CPT/HCPCS: 36415; 71045; 80053; 81001; 83735; 85025; 87086; 93005; 96360; 99285; J7030

== ENCOUNTER 2021-06-17 14:55 | Emergency (ER) | payer MEDICARE, BC ==
[~2021-06-17] VITALS: Ht 170.2 cm; Wt 80.0 kg
[~2021-06-17 14:55] MED LIST changes: -LEVO500T8 PO; +LEVO500T9 PO; -LISI-517 PO; +LISI5TAB15 PO
--- NOTE | 2021-06-17 15:14 | EKG ---
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
--- NOTE | 2021-06-17 15:23 | PHYS DOC ---
Past History Past Medical History: A-Fib, Arthritis, Bronchitis, Cystic Fibrosis, CHF, Hypertension Additional Past Medical Histor: Stage 2 kidney disease. Past Surgical History: No Surgical History Alcohol Use: None General Adult EDM: Chief Complaint: WEAKNESS/GENERALIZED HPI: HPI: 70-year-old male presents with generalized weakness. The patient was brought in by EMS from his primary care physician's office because he seemed to be weak and having difficulty fully supporting himself. He was found to have a low blood pressure so they gave him 250 cc of normal saline and then transported him to the emergency room. Patient tells me he does not want to be here. He is a bit emotional about not wanting to be in the hospital. The patient did have a significant admission with brain bleed a few months ago. Patient denies fever or chills. He has no specific complaints. On arrival his blood pressure is within normal limits. Review of Systems: Review of Systems: Constitutional: Denies fever or chills. Weakness. Eyes: Denies change in visual acuity HENT: Denies nasal congestion or sore throat Respiratory: Denies cough or shortness of breath Cardiovascular: Denies chest pain or edema GI: Denies abdominal pain, nausea, vomiting, bloody stools or diarrhea : Denies dysuria Musculoskeletal: Denies back pain or joint pain Integument: Denies rash Neurologic: Denies headache, focal weakness or sensory changes Endocrine: Denies polyuria or polydipsia Lymphatic: Denies swollen glands Psychiatric: Denies depression or anxiety Allergies: Allergies: Allergies Coded Allergies Type Severity Reaction Last Updated Verified No Known Drug Allergies 05/24/21 No Physical Exam: PE: Constitutional: Well developed, well nourished, no acute distress, non-toxic appearance. [] HENT: Normocephalic, atraumatic, bilateral external ears normal, oropharynx moist, no oral exudates, nose normal. [] Eyes: PERRLA, EOMI, conjunctiva normal, no discharge. [] Neck: Normal range of motion, no tenderness, supple, no stridor. [] Cardiovascular: Heart rate 62, irregular rhythm, no murmur [] Lungs & Thorax: Bilateral breath sounds clear to auscultation [] Abdomen: Bowel sounds normal, soft, no tenderness, no masses, no pulsatile masses. [] Skin: Warm, dry, no erythema, no rash. [] Back: No tenderness, no CVA tenderness. [] Extremities: No tenderness, no cyanosis, no clubbing, ROM intact, no edema. [] Neurologic: Alert and oriented X 3, normal motor function, normal sensory function, no focal deficits noted. [] Psychologic: Affect normal, judgement normal, mood emotional. [] Current Patient Data: Vital Signs: Vital Signs Date Time Temp Pulse Resp B/P (MAP) Pulse Ox O2 Delivery O2 Flow Rate FiO2 06/17/21 15:00 97.5 68 18 124/58 (80) 98 EKG: EKG: Irregular rhythm, rate 62, normal axis, no ST elevation or depression, A. fib. [] Radiology/Procedures: Radiology/Procedures: [] Impressions: EXAMINATION: Chest radiograph. VIEWS: Single AP view of the chest COMPARISON: 05/29/2021 INDICATION:70 years, Male, weakness. FINDINGS: Normal cardiomediastinal silhouette. No focal consolidation. No pleural effusion or pneumothorax. No acute osseous process. IMPRESSION: No acute cardiopulmonary process. Electronically signed by: Lisbet Hill DO (06/17/2021 3:22 PM) [facility] DICTATED AND SIGNED BY: LISBET HILL DO DATE: 06/17/21 1522 CC: GREY CARRIZALES DO; ISABEL GTZ MD ~MTH0 0 EXAM: Right foot, 3 views. HISTORY: Necrosis. COMPARISON: None. FINDINGS: 3 views of the right foot are obtained. There is no acute fracture, dislocation or subluxation. There is minimal degenerative spurring involving the first metatarsal phalangeal joint. There is enthesopathy at the Achilles tendon insertion. There are vascular calcifications. There is no osseous erosion or radiodense foreign body. IMPRESSION: No acute osseous finding. Electronically signed by: Jelena Jerome MD (06/17/2021 4:09 PM) [id number] DICTATED AND SIGNED BY: JELENA JEROME MD DATE: 06/17/21 1608 CC: GREY CARRIZALES DO; ISABEL GTZ MD ~MTH0 0 Heart Score: C/O Chest Pain: N/A Risk Factors: Risk Factors: DM, Current or recent (<one month) smoker, HTN, HLP, family history of CAD, obesity. Risk Scores: Score 0 - 3: 2.5% MACE over next 6 weeks - Discharge Home Score 4 - 6: 20.3% MACE over next 6 weeks - Admit for Clinical Observation Score 7 - 10: 72.7% MACE over next 6 weeks - Early Invasive Strategies Course & Med Decision Making: Course & Med Decision Making Pertinent Labs and Imaging studies reviewed. (See chart for details) The patient's labs are significant for a creatinine of 2.2. Review of his chart shows that his baseline is around 1.7-2. I have given him a liter normal saline as he appears clinically dry. His blood pressure has remained within normal limits. His EKG is unremarkable except for rate controlled A. fib. His troponin is negative. An exam of the patient's foot shows that he has avascular necrosis developing of the first and second toes. There is no obvious surrounding infection but I will cover the patient with Keflex for 7 days. I have advised that he follow-up with orthopedic surgery as soon as possible all arrangements this issue. Patient is started verbal understanding. Patient stable for discharge at this time. Paulino Disclaimer: Paulino Disclaimer: This electronic medical record was generated, in whole or in part, using a voice recognition dictation system. Departure Departure: Impression: Primary Impression: Near syncope Additional Impression: Avascular necrosis Disposition: HOME / SELF CARE / HOMELESS Condition: STABLE Referrals: ISABEL GTZ MD (PCP) Patient Instructions: Avascular Necrosis Additional Instructions: You need to follow-up with orthopedic surgery as soon as possible for your toes. You can call the [facility] orthopedic group at: [phone] for an appointment. Scripts Cephalexin (CEPHALEXIN) 500 Mg Tablet 1 TAB PO TID for cellulitis for 7 Days, #21 TAB Prov: GREY CARRIZALES DO 06/17/21 GREY CARRIZALES DO Jun 17, 2021 15:23
[2021-06-17] MEDS: IV NORMAL SALINE 1,000ML 1,000 ML IV ONE (15:26)
[2021-06-17 15:37] LABS: BASO # 0.1 x10^3/uL (0.0-0.2); BASO % 1 % (0-3); EOS # 0.1 x10^3/uL (0.0-0.7); EOS % 1 % (0-3); HEMATOCRIT 31.7 % (39.0-53.0); HEMOGLOBIN 10.4 g/dL (13.0-17.5); LYMPH % 8 % (24-48); MEAN CORPUSCULAR HEMOGLOBIN 30 pg (25-35); MEAN CORPUSCULAR HGB CONC 33 g/dL (31-37); MEAN CORPUSCULAR VOLUME 92 fL (79-100); MONO % 9 % (0-9); NEUT # 9.3 x10^3uL (1.8-7.7); NEUT % 81 % (31-73); PLATELET COUNT 200 x10^3/uL (140-400); RED BLOOD COUNT 3.44 x10^6/uL (4.30-5.70); RED CELL DISTRIBUTION WIDTH 14.8 % (11.5-14.5); WHITE BLOOD COUNT 11.6 x10^3/uL (4.0-11.0)
[2021-06-17 15:45] LABS: CREATININE 2.2 mg/dL (0.7-1.3); GFR 29.6
[2021-06-17 15:53] LABS: ALBUMIN 2.9 g/dL (3.4-5.0); ALBUMIN/GLOBULIN RATIO 0.7 (1.0-1.7); TOTAL BILIRUBIN 0.5 mg/dL (0.2-1.0); TOTAL PROTEIN 7.3 g/dL (6.4-8.2)
--- NOTE | 2021-06-17 16:12 | RAD ---
EXAM: Right foot, 3 views. HISTORY: Necrosis. COMPARISON: None. FINDINGS: 3 views of the right foot are obtained. There is no acute fracture, dislocation or subluxat ion. There is minimal degenerative spurring involving the first metatarsal phalangeal joint. There is enthesopathy at the Achilles tendon insertion. There are vascular calcifications. There is no osseou s erosion or radiodense foreign body. IMPRESSION: No acute osseous finding. Electronically signed by: Jelena Sanchez MD (06/17/2021 4:09 PM) [id number]
[2021-06-17] MEDS ORDERED: CEPH500T PO (16:21)
[2021-06-17 17:30] VITALS: BP 109/61
[2021-07-05] MEDS ORDERED: LEVO750T5 PO (01:56)
== END 2021-06-17 17:55 | disposition home or self-care (01) ==
LOC: ER 14:55
DX: M87.9 Osteonecrosis, unspecified (principal); R55 Syncope and collapse; I11.0 Hypertensive heart disease with heart failure; I50.9 Heart failure, unspecified
CPT/HCPCS: 36415; 71045; 73630; 80053; 84484; 85025; 93005; 96360; 96361; 99285; J7030; 73660

== ENCOUNTER 2021-07-08 03:34 | Inpatient (IN) | payer MEDICARE, BC ==
[~2021-07-08] VITALS: Ht 170.2 cm; Wt 83.3 kg
[~2021-07-08 03:34] MED LIST changes: +CEPH500T PO; +LEVO750T5 PO
--- NOTE | 2021-07-08 03:50 | PHYS DOC ---
Past History Past Medical History: A-Fib, Arthritis, Bronchitis, Cystic Fibrosis, CHF, Hypertension Additional Past Medical Histor: Stage 2 kidney disease. Past Surgical History: No Surgical History Alcohol Use: None Adult General HPI HPI Patient is a 70-year-old male with a past medical history significant for CAD, CHF, COPD, diabetes and hypertension who presents to the emergency department with a chief complaint of shortness of breath for the last 2 days. Denies any recent traumas, travels, illnesses, fevers, chest pain, abdominal pain, nausea, vomiting, dysuria, hematuria, blood in the stool. States he has had a decrease in urine output over the last couple of days and thinks his legs are a little more swollen than usual. States he is making stool normally with no blood. Denies use of anticoagulation. Review of Systems Review of Systems Review of systems otherwise unremarkable except noted in HPI Allergies Allergies Allergies Coded Allergies Type Severity Reaction Last Updated Verified No Known Drug Allergies 05/24/21 No Physical Exam Physical Exam Constitutional: Well developed, well nourished, appears ill, acute respiratory distress HENT: Normocephalic, atraumatic, bilateral external ears normal, oropharynx moist, no oral exudates, nose normal. [] Eyes: conjunctiva normal, no discharge. [] Neck: Normal range of motion, no tenderness, supple, no stridor. [] Cardiovascular: Sinus tachycardia Lungs & Thorax: Bilateral breath sounds, with global rhonchi, tachypnea, inc reased work of breathing and hypoxia on room air Abdomen: soft, no tenderness, no masses, no pulsatile masses. [] Skin: Warm, dry, no erythema, no rash. [] Extremities: No tenderness, no cyanosis, no clubbing, ROM intact, 2+ pitting edema bilaterally Neurologic: Alert and oriented X 3, no focal deficits noted. [] Psychologic: Affect normal, judgement normal, mood normal. [] EKG EKG [] Radiology/Procedures Radiology/Procedures [] Heart Score C/O Chest Pain: No Risk Factors: Risk Factors: DM, Current or recent (<one month) smoker, HTN, HLP, family history of CAD, obesity. Risk Scores: Risk Factors: DM, Current or recent (<one month) smoker, HTN, HLP, family history of CAD, obesity. Course & Med Decision Making Course & Med Decision Making Patient is a 70-year-old male who presents with a chief complaint of shortness of breath and respiratory distress Vital signs notable for hypertension, tachypnea, hypoxia on room air and increased work of breathing. Physical exam noted above. Patient placed on the monitor with IV access established. Placed on nonrebreather. Blood cultures obtained. Started on broad-spectrum antibiotics due to concern for Sirs/sepsis. Covid swab positive. Laboratory analysis notable for normocytic anemia, thrombocytopenia, hypokalemia and elevated BNP. Potassium replaced. Given Lasix. Got patient down from CPAP to 5 L nasal cannula significant improvement in respiratory status. Discussed all findings with patient and recommended admission for continued valuation treatment of his Covid pneumonia. Patient grateful, verbalized understanding and agreed with plan of admission. Critical care 1 hour [] Dragon Disclaimer Dragon Disclaimer This electronic medical record was generated, in whole or in part, using a voice recognition dictation system. Departure Departure: Impression: Primary Impression: Respiratory distress Additional Impressions: Hypoxia COVID Pneumonia Disposition: 02 SHORT TERM HOSPITAL Admitting Physician: Sabino Dubon Condition: IMPROVED Referrals: ISABEL GTZ MD (PCP) Problem Qualifiers ANDREAS ROBIN MD Jul 08, 2021 03:50
--- NOTE | 2021-07-08 04:29 | RAD ---
CT of the chest without contrast: Clinical History: Reason: SOB, hypoxia / Spl. Instructions: / History: . Axial helical images of the chest were obtained without contrast. COMPARISON: April 11, 2021 FINDINGS: There is a mild left pleural effusion. There is patchy groundglass opacities throughout the mid and l ower lungs bilaterally. There is multiple small mediastinal lymph nodes. Impression: 1. Mild left effusion and moderate bilateral pulmonary infiltrates likely secondary to atypical pneum onia. 2. Mild reactive lymphadenopathy. End impression PQRS Compliance Statement: One or more of the following individualized dose reduction techniques were utilized for this examinat ion: 1. Automated exposure control 2. Adjustment of the mA and/or kV according to patient size 3. Use of iterative reconstruction technique Electronically signed by: Dionicio Lujan III, MD (07/08/2021 4:26 AM) [facility]
[2021-07-08 04:34] LABS: BASO % 0 % (0-3); EOS % 0 % (0-3); HEMATOCRIT 23.3 % (39.0-53.0); HEMOGLOBIN 7.8 g/dL (13.0-17.5); LYMPH # 0.5 x10^3/uL (1.0-4.8); LYMPH % 9 % (24-48); MEAN CORPUSCULAR HEMOGLOBIN 29 pg (25-35); MEAN CORPUSCULAR HGB CONC 33 g/dL (31-37); MEAN CORPUSCULAR VOLUME 88 fL (79-100); MONO # 0.3 x10^3/uL (0.0-1.1); MONO % 5 % (0-9); NEUT # 4.6 x10^3uL (1.8-7.7); NEUT % 85 % (31-73); PLATELET COUNT 129 x10^3/uL (140-400); RED BLOOD COUNT 2.64 x10^6/uL (4.30-5.70); RED CELL DISTRIBUTION WIDTH 16.7 % (11.5-14.5); WHITE BLOOD COUNT 5.4 x10^3/uL (4.0-11.0)
[2021-07-08 04:55] LABS: ALBUMIN/GLOBULIN RATIO 0.5 (1.0-1.7); CREATININE 1.3 mg/dL (0.7-1.3); GFR 54.3; INFLUENZA A PATIENT NEGATIVE (NEGATIVE); INFLUENZA B PATIENT NEGATIVE (NEGATIVE); MAGNESIUM 1.9 mg/dL (1.8-2.4); TOTAL BILIRUBIN 0.7 mg/dL (0.2-1.0)
[2021-07-08] MEDS ORDERED: DEXAMETHASONE 4 MG TABLET PO ONE (05:00)
[2021-07-08 05:02] LABS: POTASSIUM 2.6 mmol/L (3.5-5.1)
[2021-07-08] MEDS ORDERED: POTASSIUM CHLORIDE 20 MEQ TABLET.ER. PO ONE ×2 (06:30→09:15)
[2021-07-08] MEDS ORDERED: LOSA50TA86 PO (08:19)
[2021-07-08] MEDS ORDERED: OMEP40CA7 PO (08:19)
[2021-07-08] MEDS ORDERED: HYDR-2868 PO (08:19)
[2021-07-08] MEDS ORDERED: CLOP75TA57 PO (08:19)
[2021-07-08] MEDS ORDERED: NITROGLYCERIN SUBLINGUAL 0.4 MG BOTTLE OF 25. SL PRN (10:00)
[2021-07-08] MEDS ORDERED: ACETAMINOPHEN 325 MG TABLET PO PRN (10:00)
[2021-07-08] MEDS ORDERED: ONDANSETRON PF 4 MG/2 ML VIAL. IVP PRN (10:00)
[2021-07-08] MEDS: HEPARIN for SUB-Q USE 5,000 UNIT/ML VIAL. SQ SCH ×2 (14:00→22:40)
--- NOTE | 2021-07-08 19:10 | EKG ---
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
[2021-07-08 19:30] VITALS: BP 133/84
--- NOTE | 2021-07-08 19:30 | NUR ---
Pt admitted from ER to ICU bed 6 via [facility], accompanied by EMS and nursing staff. Pt transferred over from [facility] to bed x3 assist. Admission assessment completed. Pt lethargic but able to answer questions appropriate, A&Ox4, with forgetfulness. VSS. Pt on 5-6L high flow NC to keep O2 sats >92%. Pt placed on Telemetry, Afib noted on monitor with rate ranging from 60-80's (has known hx of AFib). Pt here for SOA r/t Covid Pneumonia & CHF, Hypokalemia (K=2.6) and Anemia (Hgb=7.8). Pt stated that "I have been in and out of different hospitals the last few months for various things." Pt had a right intracanal hemorrhage with midline shift on 04/11/21 and "spent many days at ..almost 2 weeks I think!" Pt has also had two recent admissions to [facility]: 06/19/21 for necrosis of right toes and had right TMA done 06/24/21. Pt was DC 06/30/[address] [facility] to [facility] but returned within a few hours for abd. pain/acute appendicitis. Pt was then DC home from [facility] on 07/05/21 with 20:20 Mobile. Pt reports having poor PO intake of food and liquids r/t recent appendicitis and has not been taking his home medications as prescribed for the last week or so. Stefanie called and she confirmed information. Health history and home medications reviewed with pt and . Pt with wounds: incision to right foot with intact sutures, wound to left 5th toe and excoriation/maceration to groin and coccyx. Pt with scattered bruising to arms, legs and abdomen. Photos taken using [employer] system and placed in chart. Pt with very firm distended lower abdomen, pt has not voided all day per ER report, bladder scan perform with >800ml noted. Order for Gray catheter obtained by Dr Chandler. 16F Gray catheter placed using aseptic technique with immediate returned of 1500 ml of rc urine. Abd distention improved greatly and pt reports feeling better. Pt has had 2 doses of Moderna vaccine (September and October) and UTD Flu vaccine (had April). PT/OT, CM, Wound cre & Dietary consult placed. Pt lives at home with his . POC reviewed with pt, understanding verbalized but needs reenforcement. Pt was given written information regarding hospital policies, unit procedures and contact persons. Valuables were checked and left at bedside. Pt has own Ozempic pen here, verified by Pharmacy. Rapid Covid +, placed in precautions. Pt did take a few sips of water but refused any other PO intake. Dr Chandler called and admit orders received. Pt to start on Remdesivir, Vanco, Zosyn, Dexamethasone adn potassium replacement.
[2021-07-08 20:00] VITALS: BP 149/78
[2021-07-08] MEDS ORDERED: PIP/TAZO PER PHARMACY MC PRN (20:30)
[2021-07-08 21:00] VITALS: BP 154/80
[2021-07-08] MEDS: VANCOMYCIN PER PHARMACY MC PRN (21:10)
[2021-07-08 21:29] LABS: CREATININE 1.3 mg/dL (0.7-1.3); GFR 54.3
[2021-07-08] MEDS ORDERED: VANCOMYCIN 2 GM in IV NORMAL SALINE 500ML 500 ML IV ONE (21:30)
[2021-07-08 21:41] LABS: BILIRUBIN,URINE NEG (NEG); CLARITY,URINE CLEAR; COLOR,URINE YELLOW; GLUCOSE,URINE NEG (NEG)
[2021-07-08 21:42] LABS: BACTERIA,URINE MOD /HPF (0-FEW); GRANULAR CASTS,URINE OCC /HPF; NITRITE,URINE NEG (NEG); SQUAMOUS EPITHELIAL CELL,UR OCC /LPF; UROBILINOGEN,URINE 0.2 mg/dL (0.2 mg/dL)
[2021-07-08 22:00] VITALS: BP 144/74
[2021-07-08] MEDS ORDERED: ONDANSETRON ODT 4 MG TAB.RAPDIS PO PRN (22:15)
[2021-07-08] MEDS ORDERED: REMDESIVIR LOAD in IV NORMAL SALINE 250ML TV IV ONE (22:30)
[2021-07-08] MEDS ORDERED: DEXTROSE 50% 25 GM / 50ML DISP.SYRIN. IV PRN (22:45)
[2021-07-08] MEDS ORDERED: hydrALAZINE 20 MG/ML VIAL. IV PRN (22:45)
[2021-07-08 23:00] VITALS: BP 157/81
[2021-07-08] MEDS: DEXAMETHASONE SOD PHOS 10 MG/ML VIAL. IV SCH (23:57)
[2021-07-08] MEDS: PIPERACILLIN/TAZOBACTAM 4.5 GM in IV NORMAL SALINE 50ML 50 ML IV SCH (23:57)
[2021-07-09] VITALS (13 sets, daily range): BP systolic 110–148; BP diastolic 55–87
[2021-07-09] MEDS: POTASSIUM CHLORIDE 10MEQ 100 ML IV SCH ×4 (00:39→03:45)
[2021-07-09] MEDS ORDERED: ATOR80TA72 PO (01:56)
[2021-07-09] MEDS ORDERED: TRAZ-120 PO (01:56)
[2021-07-09] MEDS: PIPERACILLIN/TAZOBACTAM 4.5 GM in IV NORMAL SALINE 50ML 50 ML IV SCH ×4 (05:42→23:55)
[2021-07-09] MEDS: DEXAMETHASONE SOD PHOS 10 MG/ML VIAL. IV SCH ×4 (05:42→23:55)
[2021-07-09] MEDS: HEPARIN for SUB-Q USE 5,000 UNIT/ML VIAL. SQ SCH ×3 (05:42→20:49)
[2021-07-09 06:15] LABS: BASO % 0 % (0-3); EOS % 0 % (0-3); HEMATOCRIT 22.8 % (39.0-53.0); HEMOGLOBIN 7.6 g/dL (13.0-17.5); LYMPH # 0.2 x10^3/uL (1.0-4.8); LYMPH % 5 % (24-48); MEAN CORPUSCULAR HEMOGLOBIN 30 pg (25-35); MEAN CORPUSCULAR HGB CONC 33 g/dL (31-37); MEAN CORPUSCULAR VOLUME 89 fL (79-100); MONO # 0.3 x10^3/uL (0.0-1.1); MONO % 6 % (0-9); NEUT # 3.9 x10^3uL (1.8-7.7); NEUT % 89 % (31-73); PLATELET COUNT 112 x10^3/uL (140-400); RED BLOOD COUNT 2.57 x10^6/uL (4.30-5.70); RED CELL DISTRIBUTION WIDTH 16.7 % (11.5-14.5); WHITE BLOOD COUNT 4.4 x10^3/uL (4.0-11.0)
[2021-07-09 06:26] LABS: CALCIUM 7.8 mg/dL (8.5-10.1); CREATININE 1.3 mg/dL (0.7-1.3); GFR 54.3; POTASSIUM 3.5 mmol/L (3.5-5.1)
[2021-07-09] MEDS: INSULIN LISPRO 300 UNITS/3 ML VIAL. SQ SCH ×3 (08:00→17:00)
[2021-07-09] MEDS ORDERED: IPRATROPIUM/ALBUTEROL 20/100mcg/INH INHALER. INH SCH (08:00)
--- NOTE | 2021-07-09 08:30 | NUR ---
Spoke with the pt this morning in regards to taking his daily medications and compliance. Pt also GAVE PERMISSION for this nurse to speak with home health nurse from [facility]. [place] home health nurse from [facility] called for admitting diagnoses and to let us know that he they will resume seeing the pt on discharge. [place] stated that case management social worker from [facility] will call [place] case making machine operator later today. 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 Pt was willing to drink Glucerna this morning and some water as well. Will continue to monitor and talk to Dr. Chandler in regards to pts refusal on PO medications.
[2021-07-09] MEDS ORDERED: BENZOCAINE ONE 20% MUCOSAL SPRAY. MM (09:00)
[2021-07-09] MEDS ORDERED: ALBUTEROL SULFATE 2.5 MG/3 ML NEBU. NEB PRN (09:00)
[2021-07-09] MEDS ORDERED: DULoxetine HCL 60 MG CAPSULE.DR PO SCH ×2 (09:00→21:00)
[2021-07-09] MEDS ORDERED: BENZOCAINE/MENTHOL LOZNGE 18'S BOX. PO PRN (09:00)
[2021-07-09] MEDS ORDERED: POTASSIUM CHLORIDE 20 MEQ TABLET.ER. PO SCH (09:00)
[2021-07-09] MEDS ORDERED: NON FORMULARY ITEM (Cephalexin 1 TAB) PO SCH (09:00)
[2021-07-09] MEDS ORDERED: NON FORMULARY ITEM (Semaglutide (Ozempic) 1 MG) SQ SCH (09:00)
[2021-07-09] MEDS: PANTOPRAZOLE 40 MG TABLET. PO SCH (09:33)
[2021-07-09] MEDS: ASPIRIN ENTERIC COATED 81 MG TABLET.DR. PO SCH (09:33)
[2021-07-09] MEDS: GABAPENTIN 100 MG CAPSULE. PO SCH ×3 (09:33→20:48)
[2021-07-09] MEDS: hydrALAZINE 25 MG TABLET PO SCH ×2 (09:34→14:01)
[2021-07-09] MEDS: CLOPIDOGREL BISULFATE 75 MG TABLET PO SCH (09:34)
[2021-07-09] MEDS: LOSARTAN 25 MG TABLET. PO SCH (09:35)
[2021-07-09] MEDS: IPRATRPIUM/ALBUTEROL 0.5/2.5MG 3 ML NEBU. NEB SCH ×3 (09:35→22:14)
[2021-07-09] MEDS: CARVEDILOL 6.25 MG TABLET PO SCH ×2 (09:36→17:30)
[2021-07-09] MEDS: CALCITRIOL 0.25 MCG CAPSULE PO SCH (09:37)
[2021-07-09] MEDS: ARIPiprazole 5 MG TABLET PO SCH (10:02)
--- NOTE | 2021-07-09 10:43 | HP ---
DATE OF SERVICE: 07/09/2021 ADMIT DATE: 07/08/2021 HISTORY OF PRESENT ILLNESS: A 70-year-old male with history of multiple medical problems including diabetes, came in with shortness of breath for the last couple of days. The patient had not been immunized and refused to get immunized for COVID-19, now has COVID-19 pneumonia with severe abdominal pain. The patient also notes that he has had decreased urinary output in the last couple of days. The patient was admitted for severe respiratory failure secondary to pneumonia secondary to COVID-19. The patient being placed in the ICU for immediate attention and make further evaluation. PAST MEDICAL HISTORY: Significant as noted for diabetes, right intracerebral hemorrhage with midline shift on 04/11/2021, chronic atrial fibrillation, pericarditis, peripheral neuropathy, coronary artery disease, peripheral artery disease, hypercholesterolemia, COPD, bronchitis, pneumonia, sleep apnea, protein malnutrition, pancreatitis, cholelithiasis, renal disease, kidney stones, urinary retention, amputation, right TMA, osteomyelitis. Type 2 diabetes. He has had PTSD, panic disorder, depression, anxiety, chickenpox vaccine, shingles, anemia overall. Right ear infections. Skin cancer. Pneumococcal vaccination. Cellulitis. Progressive weakness, depression, severe condition. PAST SURGICAL HISTORY: The patient otherwise has had right toe recently amputated for osteomyelitis. Right superficial femoral artery angioplasty with 2 stents FAMILY HISTORY: Hypertension and cancer. ALLERGIES: No known drug allergies. HOME MEDICATIONS: See the list including he has been on levothyroxine, Combivent inhaler, Plavix, atorvastatin, hydralazine, carvedilol, losartan 25, gabapentin, Cymbalta, trazodone, Zantac, Zofran, Prilosec, Ozempic, Calcitriol. SOCIAL HISTORY: The patient denies smoking, alcohol or drug use. The patient is presently a DNR. REVIEW OF SYSTEMS: The patient has sore throat, generalized headache, some agitation, difficulty in urination. Denies chest pain, but does have shortness of breath. The patient's lungs, he has shortness of breath with marked orthopnea, dyspnea. The patient neurologically very agitated and depressed. No problem with his bowels. PHYSICAL EXAMINATION: GENERAL: This is an ill-appearing white male. The patient has a depressed affect overall with speech. VITAL SIGNS: Blood pressure of 132/67, respiratory rate anywhere from 40-24, pulse 80-100, afebrile presently, initially came in on 12 liters, is down to 6 liters per nasal cannula. HEAD: Atraumatic, normocephalic. LUNGS: Diminished with rales and rhonchi at the bases. CARDIOVASCULAR: Irregularly irregular. ABDOMEN: Soft, protuberant, nontender. No rebound or guarding. Positive bowel sounds, no hepatosplenomegaly was noted. EXTREMITIES: No clubbing, cyanosis. LABORATORY DATA: The patient's wound on his foot from the amputation is healing well. The patient's chest CT scan did not show any blood clots, but did show diffuse pneumonia and some pleural effusions. Positive for SARS rapid. Potassium 2.6, sodium 139, BUN and creatinine 14 and 1.3. BNP of 13,000. Albumin just of 2. The patient's UA was unremarkable. Serology as indicated. Hemoglobin of 7.6 and hematocrit 22. White count 4, platelets decreased to 122. IMPRESSION: Acute respiratory failure, COVID-19 pneumonia, respiratory distress, hypoxia, anemia, thrombocytopenia, type 2 diabetes, hypokalemia, severe protein malnutrition, positive COVID, agitation, depression, neuropathy, recent cerebral infarction in March, that is, 3 months ago. PLAN: The patient placed in the ICU. He is on a facemask, being monitored continuously. IV antibiotic therapy, Zosyn, vancomycin, remdesivir has been started along with Decadron and Combivent inhaler. AVA/CHRISTI DR: Tosin TID: [id number]
[2021-07-09] MEDS: VANCOMYCIN PER PHARMACY MC PRN (13:55)
--- NOTE | 2021-07-09 13:55 | NUR ---
Pharmacy Vancomycin Dosing Note S:Consulted to monitor and dose vancomycin started 07/08/21. O:HAYDEN SEAY is a 70 year old M with Pneumonia, . Height: 5 feet, 7 inches Weight: 79.5 kg [place] Body Weight: 66.10 Adjusted Body Weight: 71.26 Dosing Weight: Actual Other Antibiotics: ZOSYN 4.5GRAM Q6HRS LABS: Last BUN: 20 Last Creatinine: 1.3 Creatinine Clearance: 52ML/MIN Last WBC: 4.4 Last Procalcitonin: Tmax (past 24 hours): Microbiology: I/O: Drug Levels: Last level: on at Last dose given 07/08/21 at 2130 Vancomycin Dosing: Loading Dose: 2000 mg x1 Dosing Weight: Actual Target Trough: 15-20 A: Based on: P: 1. Begin Vancomycin 1500 mg IV q24h 2. Follow up Trough level on 07/10/21 at 2130 3. Pharmacy will continue to monitor, follow and adjust therapy as needed. LEIGH BERRY, [facility], 07/09/21 [id number]
--- NOTE | 2021-07-09 16:23 | NUR ---
Wound Care Wound Type/Assessment: patient seen per wound care consult. see wound assessment. patient has a Surgical incision to the right foot from a TMA surgery at [facility] by vascular. Order from vascular on 06/25 by MIGDALIA Rivas for daily dry gauze dressing. Patient also has a left 5th toe DFU that has a dry eschar/slough with no drainage. patient has some redness, maceration skin breakdown to the buttock and groin areas. Treatment Recommendations/Plan: Recommendations for the Right TMA- clean the incision with the Prevantics swab and apply a dry gauze dressing daily. Recommendations for the buttock and groin area cleanse the area then apply Calazime cream, prn. Recommendations for the left 5th toe- cleanse the wound then paint with Betadine, daily. Offloading surface/device: Wedge,pillows, Turn Q2. Patient turned to the right side at this time with wedge and pillow Discharge Recommendations for dressings: Notified OSWALD Morocho about the POC. OSWALD Morocho to contact vascular for f/u appointment. Wound care will continue to f/u for changes
[2021-07-09] MEDS: VANCOMYCIN 1.5 GM in IV NORMAL SALINE 500ML 500 ML IV SCH (20:49)
[2021-07-09] MEDS: DULoxetine HCL 30 MG CAPSULE.DR PO SCH (20:51)
[2021-07-09] MEDS: REMDESIVIR 100mg in NORMAL SALINE 250ML X 4 DAYS IV SCH (23:54)
[2021-07-10] VITALS (8 sets, daily range): BP systolic 118–154; BP diastolic 72–90
[2021-07-10] MEDS: hydrALAZINE 25 MG TABLET PO SCH ×4 (00:57→20:03)
[2021-07-10] MEDS: DEXAMETHASONE SOD PHOS 10 MG/ML VIAL. IV SCH ×4 (05:22→23:35)
[2021-07-10] MEDS: PIPERACILLIN/TAZOBACTAM 4.5 GM in IV NORMAL SALINE 50ML 50 ML IV SCH ×4 (05:23→23:35)
[2021-07-10] MEDS: HEPARIN for SUB-Q USE 5,000 UNIT/ML VIAL. SQ SCH ×3 (05:24→22:28)
--- NOTE | 2021-07-10 06:00 | NUR ---
Pt slept off and on throughout the night, pt lethargic at this beginning of the shift and then more restless toward the end. Pt repeatedly pulling off oxygen and sats dropped into the low 70's% on room air. Attempted to take pt off NRB mask and place pt on only 15L HFNC, unable to do so, pts sats dropped into the mid to low 80's%. placed pt bck on 5l HFNC and 10L NRB. Instructed pt not pull off oxygen multiple times, but pt continued to do throughout the night. Pt wanting to drink a lot of water, states his throat is dry. Pt also expressing a strong insistent desire to go home today, explained that with his oxygen demands at this time it was not a reasonable goal at this time. Pts lungs coarse with crackles, rhonchi, and exp wheezing. Will discuss plan of care with Dr. Chandler and andres this nurse this am.
[2021-07-10 07:00] LABS: BASO % 0 % (0-3); CALCIUM 7.5 mg/dL (8.5-10.1); CREATININE 1.4 mg/dL (0.7-1.3); EOS % 0 % (0-3); GFR 49.8; HEMATOCRIT 22.3 % (39.0-53.0); HEMOGLOBIN 7.5 g/dL (13.0-17.5); LYMPH # 0.2 x10^3/uL (1.0-4.8); LYMPH % 2 % (24-48); MEAN CORPUSCULAR HEMOGLOBIN 30 pg (25-35); MEAN CORPUSCULAR HGB CONC 34 g/dL (31-37); MEAN CORPUSCULAR VOLUME 89 fL (79-100); MONO # 0.4 x10^3/uL (0.0-1.1); MONO % 5 % (0-9); NEUT # 6.8 x10^3uL (1.8-7.7); NEUT % 93 % (31-73); PLATELET COUNT 120 x10^3/uL (140-400); POTASSIUM 3.1 mmol/L (3.5-5.1); RED BLOOD COUNT 2.52 x10^6/uL (4.30-5.70); RED CELL DISTRIBUTION WIDTH 16.7 % (11.5-14.5); WHITE BLOOD COUNT 7.3 x10^3/uL (4.0-11.0)
[2021-07-10] MEDS ORDERED: FUROSEMIDE 40 MG/4 ML VIAL IVP ONE (07:00)
--- NOTE | 2021-07-10 07:11 | NUR ---
Dr Chandler called around 0620 and updated on pts status. V/U stated. Orders received for IV Lasix. Pts resting and not restless, sats improved since pt has calmed down, 98-99% at this time.
[2021-07-10] MEDS: PANTOPRAZOLE 40 MG TABLET. PO SCH (08:04)
[2021-07-10] MEDS: LOSARTAN 25 MG TABLET. PO SCH (08:04)
[2021-07-10] MEDS: ASPIRIN ENTERIC COATED 81 MG TABLET.DR. PO SCH (08:04)
[2021-07-10] MEDS: GABAPENTIN 100 MG CAPSULE. PO SCH ×3 (08:06→20:02)
[2021-07-10] MEDS: IPRATRPIUM/ALBUTEROL 0.5/2.5MG 3 ML NEBU. NEB SCH ×3 (08:06→20:17)
[2021-07-10] MEDS: CALCITRIOL 0.25 MCG CAPSULE PO SCH (08:06)
[2021-07-10] MEDS: CLOPIDOGREL BISULFATE 75 MG TABLET PO SCH (08:07)
[2021-07-10] MEDS: ARIPiprazole 5 MG TABLET PO SCH (08:07)
[2021-07-10] MEDS: CARVEDILOL 6.25 MG TABLET PO SCH ×2 (08:10→16:43)
[2021-07-10] MEDS ORDERED: ARIPiprazole 5 MG TABLET PO SCH (09:00)
[2021-07-10] MEDS: INSULIN LISPRO 300 UNITS/3 ML VIAL. SQ SCH ×3 (09:37→16:43)
[2021-07-10] MEDS ORDERED: ELECTROLYTE (ICU) PROTOCOL. MC PRN (10:15)
--- NOTE | 2021-07-10 11:19 | RAD ---
EXAMINATION: Chest radiograph. VIEWS: 1 COMPARISON: 07/08/2021 INDICATION:70 years, Male, shortness of breath, wheezing. FINDINGS: Low lung volume, may accentuate cardiac silhouette and pulmonary vascularity. Borderline enlarged car diomediastinal silhouette. Similar diffuse bilateral pulmonary infiltrates. No sizable pleural effusi on or pneumothorax. No acute osseous process. IMPRESSION: Similar diffuse bilateral pulmonary infiltrates, consistent with multifocal pneumonia. Electronically signed by: Ericka Molina MD (07/10/2021 11:16 AM) [id number]
--- NOTE | 2021-07-10 12:21 | PN ---
SUBJECTIVE: The patient is in the ICU with COVID-19 pneumonia. The patient is still very short of breath requiring rebreather, although he does take off his mask from time to time and I sedate him. Otherwise, the patient's lungs are showing marked expiratory wheezes and shortness of breath. OBJECTIVE: VITAL SIGNS: Showed blood pressure 120/70, respiratory rate 20, pulse 70, 15 liters on nonrebreather. The patient is a DNR. GENERAL: The patient otherwise is sedated secondary to Ativan. LUNGS: Diminished throughout with wheezing noted. CARDIOVASCULAR: Irregularly irregular rhythm. ABDOMEN: Soft, protuberant, nontender. EXTREMITIES: No clubbing, cyanosis. Right foot healing from a previous surgery, amputation of a toe, left foot shows a sore on the small toe of the left foot. The patient is a poorly controlled diabetic and he is running in the low 200s. Sodium and potassium 142 and 3.1. Hemoglobin still low at 7.5. Serology positive for COVID. Continues on IV antibiotic therapy remdesivir, Decadron and make further assessment on multiple factors as we progress with this gentleman. IMPRESSION: Acute respiratory failure secondary to COVID-19 pneumonia and respiratory distress, hypoxia, anemia, thrombocytopenia, type 2 diabetes, poorly controlled, hypokalemia, severe protein malnutrition, positive COVID, agitation, depression, neuropathy, recent cerebral infarction in March 3 months ago at [place]. The patient also had amputation of osteomyelitic toe on the right foot and now has a sore on his left foot, severe depression. PLAN: Continue to monitor carefully in the ICU, diurese gently and we will repeat chest x-ray and adjust medications accordingly. ZAID/PARISA DR: Tosin TID: [id number]
--- NOTE | 2021-07-10 13:44 | NUR ---
CALLED DR NOVOA (VASCULAR SURGEON) TO INQUIRE WHEN THE PT MADE NEED TO HAVE SUTURES OUT OF FOOT. DR MELÉNDEZ SUPERVISOR [employer] RETURNED THE CALL AND STATED THAT THEY WERE FINE FOR NOW AND THAT HE WILL PASS THE MESSAGE ON THAT THE PT IS CURRENTLY AT [facility] AND THEY WILL CONTACT US REGARDING WHEN PT WILL NEED TO HAVE SUTURES OUT.
--- NOTE | 2021-07-10 13:47 | NUR ---
DR NOVOA CALLED AT [phone]
[2021-07-10] MEDS: LACTOBACILLUS RHAMNOSUS GG 1 CAPSULE. PO SCH (20:03)
[2021-07-10] MEDS: DULoxetine HCL 30 MG CAPSULE.DR PO SCH (20:03)
[2021-07-10] MEDS: REMDESIVIR 100mg in NORMAL SALINE 250ML X 4 DAYS IV SCH (21:53)
[2021-07-10 21:58] LABS: VANC TR 19.9 mcg/mL (10.0-20.0)
--- NOTE | 2021-07-10 22:09 | NUR ---
OK to administer Vancomycin 1.5g s/p trough result of 19.9, per Simeon at [facility].
[2021-07-10] MEDS: VANCOMYCIN 1.5 GM in IV NORMAL SALINE 500ML 500 ML IV SCH (22:13)
[2021-07-11 04:00] VITALS: BP 132/70
[2021-07-11] MEDS: PIPERACILLIN/TAZOBACTAM 4.5 GM in IV NORMAL SALINE 50ML 50 ML IV SCH ×3 (05:06→18:00)
[2021-07-11] MEDS: DEXAMETHASONE SOD PHOS 10 MG/ML VIAL. IV SCH ×3 (05:06→18:00)
[2021-07-11] MEDS: HEPARIN for SUB-Q USE 5,000 UNIT/ML VIAL. SQ SCH ×2 (05:07→14:00)
[2021-07-11 07:00] VITALS: BP 138/71
[2021-07-11 07:30] LABS: HEMATOCRIT 26.2 % (39.0-53.0); HEMOGLOBIN 8.8 g/dL (13.0-17.5)
[2021-07-11] MEDS: PANTOPRAZOLE 40 MG TABLET. PO SCH (07:30)
[2021-07-11 07:37] LABS: CALCIUM 7.4 mg/dL (8.5-10.1); CREATININE 1.4 mg/dL (0.7-1.3); GFR 49.8
[2021-07-11] MEDS: ASPIRIN ENTERIC COATED 81 MG TABLET.DR. PO SCH (07:49)
[2021-07-11 07:51] LABS: POTASSIUM 2.6 mmol/L (3.5-5.1)
[2021-07-11] MEDS: ARIPiprazole 5 MG TABLET PO SCH (07:52)
[2021-07-11] MEDS: CARVEDILOL 6.25 MG TABLET PO SCH ×2 (07:52→17:00)
[2021-07-11] MEDS: hydrALAZINE 25 MG TABLET PO SCH ×2 (07:55→14:00)
[2021-07-11] MEDS: LACTOBACILLUS RHAMNOSUS GG 1 CAPSULE. PO SCH (07:56)
[2021-07-11] MEDS: LOSARTAN 25 MG TABLET. PO SCH (07:56)
[2021-07-11] MEDS: CLOPIDOGREL BISULFATE 75 MG TABLET PO SCH (07:57)
[2021-07-11] MEDS: GABAPENTIN 100 MG CAPSULE. PO SCH ×2 (07:57→14:00)
[2021-07-11] MEDS: CALCITRIOL 0.25 MCG CAPSULE PO SCH (07:57)
[2021-07-11] MEDS: POTASSIUM BICARB 10 MEQ EFFERVESCENT TABLET. PO SCH ×3 (08:15→10:15)
[2021-07-11] MEDS ORDERED: PANTOPRAZOLE IV 40 MG VIAL. IVP SCH (08:30)
[2021-07-11] MEDS: INSULIN LISPRO 300 UNITS/3 ML VIAL. SQ SCH ×3 (08:36→17:00)
[2021-07-11] MEDS: IPRATRPIUM/ALBUTEROL 0.5/2.5MG 3 ML NEBU. NEB SCH ×2 (09:00→14:00)
[2021-07-11 11:00] VITALS: BP 152/81
[2021-07-11 15:00] VITALS: BP 146/75
--- NOTE | 2021-07-11 19:02 | DS ---
DATE OF DISCHARGE: 07/11/2021 HOSPITAL COURSE: This is a 70-year-old gentleman who recently had some amputations of some toes secondary to severe diabetes down at [facility], came home and was noted to have some problems with breathing. He was brought in through the Emergency Room. He was found to be in some respiratory failure with COVID-19. He was noted to have 5 lobe pneumonia. He was placed on a protocol for COVID-19 including Zosyn, remdesivir, vancomycin for possible hospital-acquired pneumonia as well as Lovenox or heparin for that matter. The patient made very poor progress. It was his wishes ahead of time that he not be intubated. Family's wishes were that he not be intubated or transferred for that matter. He continually did worse. He required 15 liters nonrebreather mask and according to the family, we followed their wishes. Hospice was notified and brought in to keep him as comfortable as possible and that was brought in for the patient. Presently, the patient is on his rebreather. He is on comfort measures per family's request. He is taken off all his other aggressive medications since they did not seem to really be helping him fight his very aggressive infections as the last x-ray demonstrated multiple lobe pneumonia. So we will continue to keep him as comfortable with hospice. IMPRESSION: 1. COVID-19 multiple lobe pneumonia. 2. Respiratory failure secondary to COVID-19 pneumonia. 3. Anemia of chronic disease. 4. Type 2 diabetes, poorly controlled. 5. Hypokalemia. 6. Severe protein malnutrition. 7. Essential hypertension. 8. Hypothermia. 9. Urinary retention and has Gray catheter placed. ZAID DR: ZAID/prakash TID: [id number]
[2021-07-11] MEDS ORDERED: VANCOMYCIN 1.25 GM in IV NORMAL SALINE 250ML 250 ML IV SCH (22:00)
[2021-07-12] MEDS ORDERED: FUROSEMIDE 20 MG/2 ML VIAL IVP SCH (09:00)
== END 2021-07-11 18:30 | disposition hospice, inpatient (51) | DRG 177 ==
LOC: ER 03:34 → ICU 09:57
PROVIDERS: ADMIT Family Medicine; ATTEND Family Medicine
PROC: 5A0935A Assistance with Respiratory Ventilation, Less than 24 Consecutive Hours, High Flow/Velocity Cannula (ICD-10-PCS; principal; 2021-07-08)
PROC: XW033E5 Introduction of Remdesivir Anti-infective into Peripheral Vein, Percutaneous Approach, New Technology Group 5 (ICD-10-PCS; 2021-07-08)
PROC: 5A0935A Assistance with Respiratory Ventilation, Less than 24 Consecutive Hours, High Flow/Velocity Cannula (ICD-10-PCS; 2021-07-09)
PROC: 5A0935A Assistance with Respiratory Ventilation, Less than 24 Consecutive Hours, High Flow/Velocity Cannula (ICD-10-PCS; 2021-07-10)
PROC: 5A0935A Assistance with Respiratory Ventilation, Less than 24 Consecutive Hours, High Flow/Velocity Cannula (ICD-10-PCS; 2021-07-11)
DX: U07.1 COVID-19 (principal); J12.82 Pneumonia due to coronavirus disease 2019; J96.01 Acute respiratory failure with hypoxia; E43 Unspecified severe protein-calorie malnutrition; I48.20 Chronic atrial fibrillation, unspecified; J44.0 Chronic obstructive pulmonary disease with (acute) lower respiratory infection; E84.9 Cystic fibrosis, unspecified; Z66 Do not resuscitate; I50.9 Heart failure, unspecified; I25.10 Atherosclerotic heart disease of native coronary artery without angina pectoris; I11.0 Hypertensive heart disease with heart failure; F32.A Depression, unspecified; E87.6 Hypokalemia; E78.00 Pure hypercholesterolemia, unspecified; D63.8 Anemia in other chronic diseases classified elsewhere; E11.65 Type 2 diabetes mellitus with hyperglycemia; E11.42 Type 2 diabetes mellitus with diabetic polyneuropathy; E11.51 Type 2 diabetes mellitus with diabetic peripheral angiopathy without gangrene; F41.0 Panic disorder [episodic paroxysmal anxiety]; F43.10 Post-traumatic stress disorder, unspecified; F41.9 Anxiety disorder, unspecified; G47.30 Sleep apnea, unspecified; M19.90 Unspecified osteoarthritis, unspecified site; Z87.442 Personal history of urinary calculi; Z86.73 Personal history of transient ischemic attack (TIA), and cerebral infarction without residual deficits; Z85.828 Personal history of other malignant neoplasm of skin; Z82.49 Family history of ischemic heart disease and other diseases of the circulatory system; Z68.28 Body mass index [BMI] 28.0-28.9, adult
CPT/HCPCS: 36415; 71045; 71250; 80048; 80053; 80202; 81001; 82947; 83605; 83735; 83880; 84484; 85014; 85018; 85025; 85610; 85730; 87040; 87086; 87426; 87804; 93005; 94640; 96365; 96366; C9113; J1100; J1644; J1815; J1940; J1956; J2060; J2543; J3370; J3480; J7040; J7050; J8540; 99291-25; J7613

== ENCOUNTER 2021-07-11 19:16 | Inpatient (IN) | payer BC, MEDICARE, OTHER ==
--- NOTE | 2021-07-11 18:45 | NUR ---
PT admitted to room 119 for hospice.
[~2021-07-11 19:16] MED LIST changes: +ATOR80TA72 PO; +CLOP75TA57 PO; +HYDR-2868 PO; +LOSA50TA86 PO; +OMEP40CA7 PO; +TRAZ-120 PO
[2021-07-11 19:45] VITALS: BP 150/73
[2021-07-11] MEDS: MORPHINE SULFATE 2 MG/ML DISP.SYRIN. IV PRN ×2 (20:35→22:46)
--- NOTE | 2021-07-11 22:51 | NUR ---
PT very agitated, pulling telemetry off, pulling non-rebreather mask off, yelling out, thrashing, very short of breath.
--- NOTE | 2021-07-11 23:48 | NUR ---
PT appears to be resting comfortably after morphine and Ativan administration. Non-rebreather mask in place. PT repositioned, redressed. IV further secured. Increased rounding times instituted.
[2021-07-12] MEDS: MORPHINE SULFATE 2 MG/ML DISP.SYRIN. IV PRN (09:08)
[2021-07-12] MEDS ORDERED: ACETAMINOPHEN 650 MG SUPP.RECT. PR PRN (09:45)
[2021-07-12] MEDS ORDERED: ONDANSETRON PF 4 MG/2 ML VIAL. IVP PRN (09:45)
--- NOTE | 2021-07-12 09:48 | NUR ---
Nursing note PT in bed, on isolation due to covid status, lethargic and response only to painful stimuli, morphine and ativan administered per doctors orders. PT on 15 liter of oxygen. needs frequent assessment and monitoring. bed low, call light within reach.
[2021-07-12 09:58] VITALS: BP 114/57
[2021-07-12] MEDS ORDERED: SCOPOLAMINE 1.5MG PATCH. TD SCH (10:00)
--- NOTE | 2021-07-12 10:41 | NUR ---
Nursing note PT in bed, oxygen reduced from 15liters to 2 liters er doctors orders and on a nasal canula, mouth wash and change of linens done. PRN ativan administered. bed low call light within reach.
[2021-07-12] MEDS: MORPHINE SULFATE 2 MG/ML DISP.SYRIN. IV SCH ×7 (11:05→23:21)
--- NOTE | 2021-07-12 11:43 | NUR ---
Nursing note PT's in room, all interventions done explained to pt's . bed low call light within reach.
[2021-07-12 16:17] VITALS: BP 94/57
[2021-07-12 20:02] VITALS: BP 105/63
[2021-07-13] MEDS: MORPHINE SULFATE 2 MG/ML DISP.SYRIN. IV SCH ×7 (01:16→13:37)
[2021-07-13 11:37] VITALS: BP 108/56
[2021-07-13] MEDS: MORPHINE SULFATE 30 MG/30 ML 30 ML IV PRN ×2 (14:47→20:00)
[2021-07-13 22:45] VITALS: BP 111/64
--- NOTE | 2021-07-14 04:35 | NUR ---
Increased apneic episodes noted. Will continue to monitor.
[2021-07-14 06:12] VITALS: BP 55/37
[2021-07-14] MEDS: MORPHINE SULFATE 30 MG/30 ML 30 ML IV PRN ×2 (06:15→07:00)
--- NOTE | 2021-07-14 09:22 | NUR ---
Nursing note PT passed at 0728 this morning, PT was assessed by 2 RN and the nursing first line supervisor confirmed. Dr Chandler was notified about PT passing. The family was notified and the hospice care facility was notified. PT's family came in to spend sometime with the PT. home was notified. PT was cleaned up and prepared for home to pick him up. PT was picked up by home at 0925.
--- NOTE | 2021-07-27 20:55 | DS ---
DATE OF DISCHARGE: 07/14/2021 EXPIRATION NOTE HOSPITAL COURSE: The patient is a 70-year-old male who came in initially with COVID-19 pneumonia. He failed to make progress, refused to go on a ventilator. He was then turned over to hospice and for the last few days of his life, he was on hospice, kept as comfortable as possible and he succumb to the COVID virus. IMPRESSION: COVID-19 pneumonia, respiratory failure. The patient was declared and the family was consoled on the situation. SANDRA DR: Tosin TID: [id number]
== END 2021-07-14 09:35 | DRG 189 ==
LOC: 1 SOUTH 19:16
PROVIDERS: ADMIT Family Medicine; ATTEND Family Medicine
DX: J96.01 Acute respiratory failure with hypoxia (principal); U07.1 COVID-19; J12.82 Pneumonia due to coronavirus disease 2019; I48.20 Chronic atrial fibrillation, unspecified; Z51.5 Encounter for palliative care; E11.42 Type 2 diabetes mellitus with diabetic polyneuropathy; I25.10 Atherosclerotic heart disease of native coronary artery without angina pectoris; J44.9 Chronic obstructive pulmonary disease, unspecified; E78.00 Pure hypercholesterolemia, unspecified; F32.A Depression, unspecified; F41.9 Anxiety disorder, unspecified; D64.9 Anemia, unspecified; D69.6 Thrombocytopenia, unspecified; Z86.73 Personal history of transient ischemic attack (TIA), and cerebral infarction without residual deficits; Z85.828 Personal history of other malignant neoplasm of skin; Z82.49 Family history of ischemic heart disease and other diseases of the circulatory system
CPT/HCPCS: J2060; J2270; Q5005